=== PATIENT | male | born 1960 | race Caucasian/White ===

== ENCOUNTER 2018-04-29 23:53 | Emergency (ER) | payer MEDICARE ==
--- NOTE | 2018-04-30 00:19 | ED Physician Chart ---
ED Chief Complaint/HPI - Patient Information Date Seen:: 04/30/18 Time Seen:: 00:18 Chief Complaint:: Blurry vision, cannot focus History of Present Illness:: 57 yo male with history of stroke 2 years ago with slurred speech and residual right sided weakness, developed intermittent blurry vision with difficulty to focus the vision last night. In addition, patient noticed worsening right sided weakness. Patient stated that the blurry vision became constant today. The weakness of right arm and right leg became worse today. Patient also reported worsening headache. Patient vomited once last night. Allergies:: Allergies Allergy/AdvReac Type Severity Reaction Status Date / Time No Known Allergies Allergy Verified 04/30/18 00:05 Vitals:: Vital Signs - 8 hr 04/29/18 23:55 Temp 97.3 F HR 93 RR 18 BP 135/99 O2 Sat % 96 ED Review of Systems - Review of Systems General/Constitutional: No fever, Weakness Skin: No rash Head: Headache Eyes: Other (blurry vision) ENT: No nasal drainage Neck: No neck pain Cardio Vascular: No chest pain Pulmonary: No SOB GI: No nausea, No vomiting Musculoskeletal: Bone or joint pain, Other (unsteady gait) Neurological: Weakness ED Past Medical History - Past Medical History Past Medical History: HTN, DM, CVA/TIA (with right hemiparesis), Other ( diabetic neuropathy) Social History: Smoker, No Alcohol, No Drug Use Surgical History: None Psychiatricy History: Depression, Schizophrenia, Bipolar, Dementia Family Medical History - Family Member Mother History Unknown: Yes ED Physical Exam - Physical Examination General/Constitutional: Awake Head: Atraumatic Eyes: PERRL Skin: No ecchymosis ENMT: Nasal exam nl Neck: No nuchal rigidity Respiratory: No Wheeze/Rhonchi/Rales Cardio Vascular: RRR, No murmur, gallop, rubs, NL S1 S2 GI: No tenderness/rebounding/guarding Other Extremities comments:: Patient was able to ambulate with unsteady gait Other Neuro/Psych comments:: LUE 5/5, RUE 4/5, LLE 5/5, RLE 4/5, patellar reflex 1+, Babinski sign negative. Decreased sensation on the right side ED Labs/Radiology/EKG Results - Lab Results Results: Laboratory Last Values WBC 12.2 Th/cmm (4.8-10.8) H 04/30/18 00:50 RBC 4.91 Mil/cmm (4.30-5.70) 04/30/18 00:50 Hgb 15.1 gm/dL (12-16) 04/30/18 00:50 Hct 45.4 % (41.0-60) 04/30/18 00:50 MCV 92.5 fl (80-99) 04/30/18 00:50 MCH 30.8 pg (26.0-30.0) H 04/30/18 00:50 MCHC Differential 33.2 pg (28.0-36.0) 04/30/18 00:50 RDW 12.0 % (11.5-20.0) 04/30/18 00:50 Plt Count 528 Th/cmm (150-400) H 04/30/18 00:50 MPV 6.5 fl 04/30/18 00:50 Neutrophils % 74.3 % (40.0-80.0) 04/30/18 00:50 Lymphocytes % 20.3 % (20.0-50.0) 04/30/18 00:50 Monocytes % 4.3 % (2.0-10.0) 04/30/18 00:50 Eosinophils % 0.9 % (0.0-5.0) 04/30/18 00:50 Basophils % 0.2 % (0.0-2.0) 04/30/18 00:50 PT 10.2 SECONDS (9.5-11.5) 04/30/18 00:50 INR 0.98 (0.5-1.4) 04/30/18 00:50 PTT (Actin FS) 28.8 SECONDS (26.0-38.0) 04/30/18 00:50 Sodium 132 mEq/L (136-145) L 04/30/18 00:50 Potassium 4.3 mEq/L (3.5-5.1) 04/30/18 00:50 Chloride 96 mEq/L (98-107) L 04/30/18 00:50 Carbon Dioxide 25.7 mEq/L (21.0-31.0) 04/30/18 00:50 Anion Gap 14.6 (7.0-16.0) 04/30/18 00:50 BUN 39 mg/dL (7-25) H 04/30/18 00:50 Creatinine 1.5 mg/dL (0.7-1.3) H 04/30/18 00:50 Est GFR ( Amer) > 60.0 ml/min (>90) 04/30/18 00:50 Est GFR (Non-Af Amer) 51.5 ml/min 04/30/18 00:50 BUN/Creatinine Ratio 26.0 04/30/18 00:50 Glucose 278 mg/dL (70-105) H 04/30/18 00:50 Calcium 9.7 mg/dL (8.6-10.3) 04/30/18 00:50 Total Bilirubin 0.4 mg/dL (0.3-1.0) 04/30/18 00:50 AST 12 U/L (13-39) L 04/30/18 00:50 ALT 14 U/L (7-52) 04/30/18 00:50 Alkaline Phosphatase 77 U/L (34-104) 04/30/18 00:50 Troponin I < 0.01 ng/mL (0.01-0.05) L 04/30/18 00:50 B-Natriuretic Peptide 7.9 pg/mL (5.0-100.0) 04/30/18 00:50 Total Protein 7.4 gm/dL (6.0-8.3) 04/30/18 00:50 Albumin 4.3 gm/dL (4.2-5.5) 04/30/18 00:50 Globulin 3.1 gm/dL 04/30/18 00:50 Albumin/Globulin Ratio 1.4 (1.0-1.8) 04/30/18 00:50 Triglycerides 401 mg/dL (<150) H 04/30/18 00:50 Cholesterol 200 mg/dL (<200) 04/30/18 00:50 LDL Cholesterol Direct 86 mg/dL (75-193) 04/30/18 00:50 HDL Cholesterol 48 mg/dL (23-92) 04/30/18 00:50 Urine Source RANDOM 04/30/18 02:23 Urine Color YELLOW 04/30/18 02:23 Urine Clarity HAZY (CLEAR) 04/30/18 02:23 Urine pH 6.0 (4.6 - 8.0) 04/30/18 02:23 Ur Specific [place] >= 1.030 (1.005-1.030) 04/30/18 02:23 Urine Protein >=300 mg/dL (NEGATIVE) 04/30/18 02:23 Urine Glucose (UA) >=1000 mg/dL (NEGATIVE) H 04/30/18 02:23 Urine Ketones NEGATIVE mg/dL (NEGATIVE) 04/30/18 02:23 Urine Blood TRACE (NEGATIVE) 04/30/18 02:23 Urine Nitrate NEGATIVE (NEGATIVE) 04/30/18 02:23 Urine Bilirubin NEGATIVE (NEGATIVE) 04/30/18 02:23 Urine Urobilinogen 0.2 E.U./dL (0.2 - 1.0) 04/30/18 02:23 Ur Leukocyte Esterase NEGATIVE (NEGATIVE) 04/30/18 02:23 Urine RBC 0-2 /hpf (0-5) H 04/30/18 02:23 Urine WBC 0-2 /hpf (0-5) 04/30/18 02:23 Ur Epithelial Cells NONE SEEN /lpf (FEW) 04/30/18 02:23 Urine Bacteria FEW /hpf (NONE SEEN) 04/30/18 02:23 - Radiology Results Results: CXR: no focal consolidation CT head without contrast: no acute intracranial hemorrhage, midline shift or mass effect ED Assessment - Assessment General Assessment: DM II, uncontrolled Diabetic neuropathy Diabetic complication affecting vision Hyponatremia Leukocytosis Hypertriglyceridemia Hypertension History of stroke with right hemiparesis Assessment/Comments:: CBC, CMP, lipid panel, Trop, BNP, UA CXR, CT head without contrast NS 1L IV bolus Aspirin 81mg Ciprofloxacin 500mg D/c home F/u PCP for diabetes. If vision change and weakness become worse ED Septic Shock - . Is Septic Shock (SBP<90, OR Lactate>4 mmol\L) present?: No - <6hrs of presentation: Vital Signs: Vital Signs - 8 hr 04/29/18 23:55 Temp 97.3 F HR 93 RR 18 BP 135/99 O2 Sat % 96 ED Reassessment (Disposition) - Reassessment Reassessment Condition:: Improved - Patient Disposition Discharge/Transfer:: Home
[2018-04-30 01:00] LABS: % BASOPHILS 0.2 % (0.0-2.0); % EOSINOPHILS 0.9 % (0.0-5.0); % LYMPHOCYTES 20.3 % (20.0-50.0); % MONOCYTES 4.3 % (2.0-10.0); % NEUTROPHILS 74.3 % (40.0-80.0); EOSINOPHILE ABSOLUTE 0.1 Th/cmm (0.1-0.4); HEMATOCRIT 45.4 % (41.0-60); HEMOGLOBIN 15.1 gm/dL (12-16); LYMPHOCYTE ABSOLUTE 2.5 Th/cmm (1.5-3.0); MEAN CELL VOLUME 92.5 fl (80-99); MEAN CORPUSCULAR HEMOGLOBIN 30.8 pg (26.0-30.0); MEAN CORPUSCULAR HGB CONC 33.2 pg (28.0-36.0); MEAN PLATELET VOLUME 6.5 fl; MONOCYTE ABSOLUTE 0.5 Th/cmm (0.3-1.0); NEUTROPHILE ABSOLUTE 9.1 Th/cmm (1.8-8.0); PLATELET COUNT 528 Th/cmm (150-400); RED BLOOD COUNT 4.91 Mil/cmm (4.30-5.70); WHITE BLOOD COUNT 12.2 Th/cmm (4.8-10.8)
[2018-04-30 01:17] LABS: INR 0.98 (0.5-1.4); PROTHROMBIN TIME (TEST) 10.2 SECONDS (9.5-11.5)
[2018-04-30 01:20] LABS: ALB/GLOB RATIO 1.4 (1.0-1.8); ALBUMIN 4.3 gm/dL (4.2-5.5); ALKALINE PHOSPHATASE 77 U/L (34-104); ANION GAP 14.6 (7.0-16.0); BILIRUBIN,TOTAL 0.4 mg/dL (0.3-1.0); BUN - UREA NITROGEN 39 mg/dL (7-25); CALCIUM SERUM 9.7 mg/dL (8.6-10.3); CARBON DIOXIDE 25.7 mEq/L (21.0-31.0); CHLORIDE 96 mEq/L (98-107); CHOLESTEROL 200 mg/dL (<200); CREATININE - SERUM 1.5 mg/dL (0.7-1.3); GFR AFRICAN-AMERICAN > 60.0 ml/min (>90); GFR NON AFRICAN-AMERICAN 51.5 ml/min; GLUCOSE 278 mg/dL (70-105); HDL -HIGH DENSITY LIPOPROTEIN 48 mg/dL (23-92); POTASSIUM SERUM 4.3 mEq/L (3.5-5.1); SGOT 12 U/L (13-39); SGPT/ALT 14 U/L (7-52); SODIUM SERUM 132 mEq/L (136-145); TOTAL PROTEIN,SERUM 7.4 gm/dL (6.0-8.3); TRIGLYCERIDES 401 mg/dL (<150)
[2018-04-30] MEDS ORDERED: Sodium Chloride 0.9% 1,000 ML IV ONE (01:38)
[2018-04-30 04:16] LABS: URINE BILIRUBIN NEGATIVE (NEGATIVE); URINE BLOOD TRACE (NEGATIVE); URINE GLUCOSE (UA) >=1000 mg/dL (NEGATIVE); URINE KETONE NEGATIVE (NEGATIVE); URINE LEUKOCYTE ESTERASE NEGATIVE (NEGATIVE); URINE MICROSCOPIC INDICATED? YES; URINE NITRATE NEGATIVE (NEGATIVE); URINE PROTEIN >=300 mg/dL (NEGATIVE); URINE SOURCE RANDOM; URINE UROBILINOGEN 0.2 E.U./dL (0.2 - 1.0)
[2018-04-30 04:20] LABS: URINE CLARITY HAZY (CLEAR); URINE COLOR YELLOW
[2018-04-30 04:21] LABS: URINE BACTERIA FEW /hpf (NONE SEEN); URINE EPITHELIAL CELLS NONE SEEN /lpf (FEW); URINE RBC 0-2 /hpf (0-5); URINE WBC 0-2 /hpf (0-5)
[2018-04-30] MEDS ORDERED: Aspirin 81mg Chewable Tab PO STA (04:27)
[2018-04-30] MEDS ORDERED: Aspirin 81mg Chewable Tab ONE (04:30)
--- NOTE | 2018-04-30 08:00 | Diagnostic Imaging Report ---
CHEST X-RAY: AP view INDICATION: Shortness of breath COMPARISON: None FINDINGS: Mild decreased lung volumes are seen with mild chronic changes. There is no focal consolidation or pleural effusions The heart is normal in size. The osseous structures demonstrate no acute abnormalities. IMPRESSION: Mild decreased lung volumes and mild chronic changes. No focal consolidation identified.
--- NOTE | 2018-04-30 08:02 | Diagnostic Imaging Report ---
Head CT without intravenous contrast Indication: Double vision Comparison: None Technique: Axial images were obtained from the vertex to the skull base without IV contrast. Coronal reconstructions were made. Total DLP: 669, [id number] FINDINGS: Images of the brain obtained without contrast demonstrate no acute hemorrhage. No mass lesions identified. The ventricles and basal cisterns are patent. Small chronic appearing bilateral basal ganglia infarcts are noted.. There is no mass effect or midline shift. Atherosclerosis is noted. No skull fractures identified. No soft tissue swelling. The paranasal sinuses are clear. IMPRESSION: No evidence of an acute intracranial hemorrhage. Small bilateral chronic appearing basal ganglia infarcts. Atherosclerotic vascular disease. Given clinical history, if indicated MRI follow-up may be obtained for further assessment.
== END 2018-04-30 04:50 | disposition home or self-care (01) ==
LOC: ER 23:53
DX: E11.40 Type 2 diabetes mellitus with diabetic neuropathy, unspecified (principal); I10 Essential (primary) hypertension; E78.1 Pure hyperglyceridemia; E87.1 Hypo-osmolality and hyponatremia; D72.829 Elevated white blood cell count, unspecified; F17.200 Nicotine dependence, unspecified, uncomplicated; F32.9 Major depressive disorder, single episode, unspecified; Z86.73 Personal history of transient ischemic attack (TIA), and cerebral infarction without residual deficits
CPT/HCPCS: 36415-UA; 70450-TC; 71045-TC; 80053-TC; 80061-TC; 81001-TC; 83036-90; 83880-TC; 84484-TC; 85025-TC; 85610-TC; 93005; J7030; Z7610

== ENCOUNTER 2018-08-10 12:43 | Inpatient (IN) | payer MEDICARE, MEDICAID ==
[2018-08-10] MEDS ORDERED: Haloperidol Lactate 5 mg/mL 1mL Vial ONE (13:25)
[2018-08-10] MEDS ORDERED: Haloperidol Lactate 5 mg/mL 1mL Vial IM STA (13:28)
--- NOTE | 2018-08-10 13:57 | ED Physician Chart ---
ED Chief Complaint/HPI - Patient Information Date Seen:: 08/10/18 Time Seen:: 13:35 Chief Complaint:: Agitation History of Present Illness:: onset x one day of agitation and aggressive behavior; pt denies trauma, LOC, ALOC, AMS, H/As, S/T, neck pain, cough, C/P, SOB, Abd. Pain, A/N/V/D/C, fever, chills, SIs, or urinary s/s Allergies:: Allergies Allergy/AdvReac Type Severity Reaction Status Date / Time No Known Allergies Allergy Verified 04/30/18 00:05 Vitals:: Vital Signs - 8 hr 08/10/18 13:34 Temp 98.5 F HR 83 RR 16 BP 121/76 O2 Sat % 98 Historian:: Patient Review:: Nurse's Note Reviewed, Old Chart Reviewed ED Review of Systems - Review of Systems General/Constitutional: No fever, No chills, No weight loss, No weakness, No diaphoresis, No edema, No loss of appetite Skin: No skin lesions, No rash, No bruising Head: No headache, No light-headedness Eyes: No loss of vision, No pain, No diplopia ENT: No earache, No nasal drainage, No sore throat, No tinnitus Neck: No neck pain, No swelling, No thyromegaly, No stiffness, No mass noted Cardio Vascular: No chest pain, No palpitations, No PND, No orthopnea, No edema Pulmonary: No SOB, No cough, No sputum, No wheezing GI: No nausea, No vomiting, No diarrhea, No pain, No melena, No hematochezia, No constipation, No hematemesis G/U: No dysuria, No frequency, No hematuria, No nacturia Musculoskeletal: No bone or joint pain, No back pain, No muscle pain Endocrine: No polyuria, No polydipsia Psychiatric: Prior psych history, Depression, Anxiety, No suicidal ideation, No homicidal ideation, No auditory hallucination, No visual hallucination Hematopoietic: No bruising, No lymphadenopathy Allergic/Immuno: No urticaria, No angioedema Neurological: No syncope, No focal symptoms, No weakness, No paresthesia, No headache, No seizure, No dizziness, No confusion, No vertigo ED Past Medical History - Past Medical History Obtainable: Yes Past Medical History: HTN, DM, Dyslipidemia, Thyroid disorder Family History: Diabetes Melitus, HTN Social History: Smoker, Alcohol, No Drug Use, Single Surgical History: None Psychiatricy History: Depression, Bipolar Medication: Reviewed Family Medical History - Family Member Mother History Unknown: Yes ED Physical Exam - Physical Examination General/Constitutional: Awake, Well-developed, well-nourished, Alert, No distress, GCS 15, Non-toxic appearing, Ambulatory Head: Atraumatic Eyes: Lids, conjuctiva normal, PERRL, EOMI Skin: Nl inspection, No rash, No skin lesions, No ecchymosis, Well hydrated, No lymphadenopathy ENMT: External ears, nose nl, TM canals nl, Nasal exam nl, Lips, teeth, gums nl , Oropharynx nl, Tonsils nl Neck: Nontender, Full ROM w/o pain, No JVD, No nuchal rigidity, No bruit, No mass, No stridor Respiratory: Nl effort/Exclusion, Clear to Auscultation, No Wheeze/Rhonchi/Rales Cardio Vascular: RRR, No murmur, gallop, rubs, NL S1 S2, Carotid/Femoral/Distal pulses equal bilaterally GI: No tenderness/rebounding/guarding, No organomegaly, No hernia, Normal BS's, Nondistended, No mass/bruits, No McBurney tenderness Other GI comments:: no pulsatile masses : No CVA tenderness Extremities: No tenderness or effusion, Full ROM, normal strength in all extremities, No edema, Normal digits & nails Neuro/Psych: Alert/oriented, DTR's symmetric, Normal sensory exam, Normal motor strength, Judgement/insight normal, Mood normal, Normal gait, No focal deficits Other Neuro/Psych comments:: + Psychomotor Agitation; no SIs; Mood/Affect: Labile Misc: Normal back, No paraspinal tenderness ED Labs/Radiology/EKG Results - Lab Results Comments:: Reviewed - EKG Interpretations EKG Time:: 13:37 Rate & Rhythm: 86; NSR Comments:: old ASMI; non-specific st-t changes ED Septic Shock - . Is Septic Shock (SBP<90, OR Lactate>4 mmol\L) present?: No - <6hrs of presentation: Vital Signs: Vital Signs - 8 hr 08/10/18 13:34 Temp 98.5 F HR 83 RR 16 BP 121/76 O2 Sat % 98 ED Reassessment (Disposition) - Reassessment Reassessment Condition:: Improved - Diagnosis Diagnosis:: Agitation; Psychosis; Medical Clearance; Bipolar Disorder; Depression; Hyponatremia; Hypothyroidism; Hyperglycemia; Uncontrolled Diabetes Mellitus; Leukocytosis; Anemia - Aftercare/Follow up Instructions Aftercare/Follow-Up Instructions:: Counseled pt regarding lab results/diagnosis & need follow up, Counseled pt & family regarding lab results/diagnosis & need follow up - Patient Disposition Discharge/Transfer:: Acute Care w/in this hosp Accepting Physician:: Dr. Zambrano Time Called:: 1530 Time Responded:: 15:30 Admitted to:: Telemetry Spoke to:: Dr. Zambrano Admitting Medical Physician:: Dr. Zambrano Condition at Disposition:: Stable, Improved
[2018-08-10 14:24] LABS: % BASOPHILS 1.1 % (0.0-2.0); % EOSINOPHILS 1.1 % (0.0-5.0); % LYMPHOCYTES 20.3 % (20.0-50.0); % MONOCYTES 7.7 % (2.0-10.0); % NEUTROPHILS 69.8 % (40.0-80.0); BASOPHILE ABSOLUTE 0.1 Th/cumm (0-0.2); EOSINOPHILE ABSOLUTE 0.1 Th/cmm (0.1-0.4); HEMATOCRIT 38.3 % (41.0-60); HEMOGLOBIN 12.5 gm/dL (12-16); LYMPHOCYTE ABSOLUTE 2.2 Th/cmm (1.5-3.0); MEAN CORPUSCULAR HEMOGLOBIN 30.6 pg (26.0-30.0); MEAN CORPUSCULAR HGB CONC 32.6 pg (28.0-36.0); MEAN PLATELET VOLUME 7.1 fl; MONOCYTE ABSOLUTE 0.8 Th/cmm (0.3-1.0); NEUTROPHILE ABSOLUTE 7.8 Th/cmm (1.8-8.0); PLATELET COUNT 489 Th/cmm (150-400); RED BLOOD COUNT 4.08 Mil/cmm (4.30-5.70); RED CELL DISTRIBUTION WIDTH 12.6 % (11.5-20.0)
[2018-08-10 14:41] LABS: ACETAMINOPHEN < 10.0 ug/mL (10.0-30.0); ALB/GLOB RATIO 1.1 (1.0-1.8); ALBUMIN 3.2 gm/dL (4.2-5.5); ALKALINE PHOSPHATASE 83 U/L (34-104); BILIRUBIN,TOTAL 0.2 mg/dL (0.3-1.0); BUN - UREA NITROGEN 42 mg/dL (7-25); CARBON DIOXIDE 24.8 mEq/L (21.0-31.0); CHLORIDE 96 mEq/L (98-107); CHOLESTEROL 134 mg/dL (<200); CREATININE - SERUM 1.4 mg/dL (0.7-1.3); GFR AFRICAN-AMERICAN > 60.0 ml/min (>90); GFR NON AFRICAN-AMERICAN 55.7 ml/min; HDL -HIGH DENSITY LIPOPROTEIN 38 mg/dL (23-92); POTASSIUM SERUM 3.8 mEq/L (3.5-5.1); SGOT 7 U/L (13-39); SGPT/ALT 8 U/L (7-52); SODIUM SERUM 128 mEq/L (136-145); TOTAL PROTEIN,SERUM 6.1 gm/dL (6.0-8.3); TRIGLYCERIDES 322 mg/dL (<150)
[2018-08-10 14:43] LABS: GLUCOSE 494 mg/dL (70-105); SALICYLATES (ASPIRIN) < 25.0 mg/L (30.0-100.0)
[2018-08-10] MEDS ORDERED: INSULIN ASPART SLIDING SCALE 100 UNITS/ML UNIT SUBQ ONE (14:50)
[2018-08-10] MEDS ORDERED: INSULIN ASPART, RECOMBINANT 100 UNITS/ML SUBQ ONE (14:54)
[2018-08-10] MEDS ORDERED: Sodium Chloride 0.9% 1,000 ML IV ONE (15:58)
[2018-08-10] MEDS ORDERED: Sodium Chloride 0.9% 500 ML IV ONE (15:59)
[2018-08-10 16:26] LABS: AMYLASE SERUM 31 U/L (29-103); LIPASE 38 U/L (11-82)
[2018-08-10 17:39] VITALS: BP 109/63
[2018-08-10] MEDS ORDERED: Sodium Chloride 0.9% 1,000 ML IV SCH ×2 (17:50→18:00)
[2018-08-10] MEDS: Sodium Chloride 0.9% 1,000 ML IV SCH (18:15)
[2018-08-10] MEDS ORDERED: INSULIN ASPART SLIDING SCALE 100 UNITS/ML UNIT SUBQ SCH (21:00)
[2018-08-10] MEDS ORDERED: Piperacillin Sodium/Tazobact 3.375 gm Vial IV ONE (21:11)
[2018-08-10] MEDS: INSULIN ASPART SLIDING SCALE 100 UNITS/ML UNIT SUBQ SCH (22:03)
--- NOTE | 2018-08-10 23:05 | History & Physical ---
ADMIT DATE: 08/10/2018 HISTORY OF PRESENT ILLNESS: The patient was brought in because of agitation and aggressive behavior. He denied any trauma, loss of consciousness, shortness of breath, etc. On the laboratory data, the patient known to have severe hyperglycemia, very low sodium and the patient was admitted for uncontrolled hypertension, diabetes, and severe hyponatremia, altered level of consciousness. The patient has no fever, no chills, no rigors, no other problems. PAST MEDICAL HISTORY: Hypertension, diabetes, hyperlipidemia, thyroid disorder. FAMILY HISTORY: Diabetes. PHYSICAL EXAMINATION: GENERAL: Awake, alert, slightly confused. HEAD: Normal. ENT: Normal. NECK: Supple, nontender. LUNGS: Clear. CARDIOVASCULAR SYSTEM: S1, S2 heard. ABDOMEN: Soft. Bowel sounds present. LABORATORY DATA: EKG showed no acute changes. DIAGNOSES: Severe hyperglycemia, hyponatremia, hypothyroidism, uncontrolled diabetes, leukocytosis, anemia was made. The patient was given antibiotics and p.o. fluids. PLAN: The patient is being admitted and I will follow medically and psychiatrist has been called and I will also call Dr. Duran Jett and I will follow the patient. JOB# [id number]
[2018-08-11] MEDS: Sodium Chloride 0.9% 1,000 ML IV SCH ×2 (01:24→17:34)
[2018-08-11 01:39] LABS: URINE SOURCE CLEAN C
[2018-08-11 01:53] LABS: URINE BILIRUBIN NEGATIVE (NEGATIVE); URINE BLOOD NEGATIVE (NEGATIVE); URINE GLUCOSE (UA) >=1000 mg/dL (NEGATIVE); URINE KETONE NEGATIVE (NEGATIVE); URINE LEUKOCYTE ESTERASE NEGATIVE (NEGATIVE); URINE MICROSCOPIC INDICATED? YES; URINE NITRATE NEGATIVE (NEGATIVE); URINE PH 5.5 (4.6 - 8.0); URINE PROTEIN 100 mg/dL (NEGATIVE); URINE UROBILINOGEN 0.2 E.U./dL (0.2 - 1.0)
[2018-08-11 01:56] LABS: URINE CLARITY CLEAR (CLEAR); URINE COLOR YELLOW
[2018-08-11 02:18] LABS: URINE BACTERIA OCCASIONAL /hpf (NONE SEEN); URINE EPITHELIAL CELLS OCCASIONAL /lpf (FEW); URINE RBC NONE SEEN /hpf (0-5); URINE WBC 0-2 /hpf (0-5)
[2018-08-11 02:19] LABS: AMPHETAMINE URINE NEGATIVE (NEGATIVE); BARBITURATES URINE NEGATIVE (NEGATIVE); BENZODIAZEPINES QUAL URINE POSITIVE (NEGATIVE); CANNABINOID THC NEGATIVE (NEGATIVE); COCAINE METABOLITE QUAL URINE NEGATIVE (NEGATIVE); METHADONE URINE NEGATIVE (NEGATIVE); METHAMPHETAMINES QUAL URINE NEGATIVE (NEGATIVE); OPIATES (MORPHINE) QUAL. URINE POSITIVE (NEGATIVE); PHENCYCLIDINE (PCP) URINE NEGATIVE (NEGATIVE); TRICYCLICS (TCA) QUAL. URINE NEGATIVE (NEGATIVE)
[2018-08-11] MEDS ORDERED: Piperacillin Sodium/Tazobact 3.375 gm Vial IV ONE (04:16)
[2018-08-11 06:22] LABS: % BASOPHILS 0.9 % (0.0-2.0); % LYMPHOCYTES 19.2 % (20.0-50.0); % MONOCYTES 8.1 % (2.0-10.0); % NEUTROPHILS 69.8 % (40.0-80.0); BASOPHILE ABSOLUTE 0.1 Th/cumm (0-0.2); EOSINOPHILE ABSOLUTE 0.2 Th/cmm (0.1-0.4); HEMATOCRIT 37.4 % (41.0-60); HEMOGLOBIN 12.6 gm/dL (12-16); LYMPHOCYTE ABSOLUTE 2.2 Th/cmm (1.5-3.0); MEAN CELL VOLUME 91.2 fl (80-99); MEAN CORPUSCULAR HEMOGLOBIN 30.7 pg (26.0-30.0); MEAN CORPUSCULAR HGB CONC 33.6 pg (28.0-36.0); MEAN PLATELET VOLUME 7.2 fl; MONOCYTE ABSOLUTE 0.9 Th/cmm (0.3-1.0); PLATELET COUNT 485 Th/cmm (150-400); RED CELL DISTRIBUTION WIDTH 12.9 % (11.5-20.0); WHITE BLOOD COUNT 11.4 Th/cmm (4.8-10.8)
[2018-08-11 06:34] LABS: ANION GAP 10.6 (7.0-16.0); BUN - UREA NITROGEN 35 mg/dL (7-25); CALCIUM SERUM 8.5 mg/dL (8.6-10.3); CHLORIDE 105 mEq/L (98-107); CREATININE - SERUM 1.3 mg/dL (0.7-1.3); GFR AFRICAN-AMERICAN > 60.0 ml/min (>90); GFR NON AFRICAN-AMERICAN > 60.0 ml/min; POTASSIUM SERUM 3.6 mEq/L (3.5-5.1); SODIUM SERUM 134 mEq/L (136-145)
[2018-08-11 06:38] LABS: GLUCOSE 184 mg/dL (70-105)
[2018-08-11] MEDS: INSULIN ASPART SLIDING SCALE 100 UNITS/ML UNIT SUBQ SCH ×4 (07:01→21:14)
[2018-08-11] MEDS ORDERED: Levothyroxine 0.1 Mg Tab PO SCH ×2 (07:30→09:00)
[2018-08-11] MEDS ORDERED: LEVOTHYROXINE SODIUM 150 MCG PO SCH (07:30)
[2018-08-11 08:11] LABS: T3 FREE 1.1 pg/mL (2.0-4.4); T4 FREE 0.48 ng/dL (0.82-1.77)
--- NOTE | 2018-08-11 08:37 | Diagnostic Imaging Report ---
CHEST X-RAY: AP view INDICATION: Pneumonia COMPARISON: 04/30/2018 FINDINGS: Developing right lower lung zone interstitial infiltrates and probable faint left basal interstitial infiltrates are noted. There is elevation of the right hemidiaphragm. Heart size normal. No significant effusions. IMPRESSION: Developing right lower lung zone interstitial infiltrate and probable faint developing left basal interstitial infiltrate. Follow-up recommended.
[2018-08-11] MEDS ORDERED: Non-Formulary Item 1 EA (Lactulose [Lactulose] 30 ML) PO SCH (09:00)
[2018-08-11] MEDS: Hydrocodone/APAP 10 mg/325 mg Tab PO SCH ×5 (11:00→20:35)
[2018-08-11] MEDS: Lactulose 10 Gm/15 mL 30mL UDC PO SCH ×2 (11:01→17:35)
[2018-08-11] MEDS ORDERED: Hydrocodone/APAP 10 mg/325 mg Tab PO SCH (21:00)
--- NOTE | 2018-08-11 23:16 | Consultation ---
DATE OF CONSULTATION: 08/11/[address] Zambrano. HISTORY OF PRESENT ILLNESS: This 57-year-old male patient who was brought to the hospital due to aggressive behavior and agitation. In the Emergency Room, the patient has uncontrolled diabetes, following this patient is admitted. Cardiac consult is requested. PAST MEDICAL HISTORY: Diabetes mellitus type 2, uncontrolled; hyponatremia; hypothyroid; iron-deficiency anemia; hyperlipidemia; major depression; and bipolar. FAMILY HISTORY: Unremarkable. SOCIAL HISTORY: The patient has a history of smoking and alcohol use. No history of substance abuse. ALLERGIES: No known allergies. PHYSICAL EXAMINATION: VITAL SIGNS: Blood pressure 130/80, pulse 70, and respirations 20. HEAD: Normocephalic. No lumps or bumps. EYES: Pupils equal, reactive to light. Fundi show AV nicking, sclerae white, conjunctivae pink. NECK: Carotid 2+. Normal upstroke. JVD flat. Thyroid not palpable. Lymph nodes not palpable. CHEST: Shows increased AP diameter. No kyphosis, scoliosis. LUNGS: Bilateral bronchovesicular breath sounds. HEART: PMI fifth intercostal space with lateral to midclavicular line. S1, S2 normal. No S3 or S4. Soft systolic murmur. ABDOMEN: Soft. Liver, spleen not palpable. No organomegaly. Bowel sounds active. NEUROLOGIC: Unremarkable. EXTREMITIES: Peripheral pulses 2+. No pedal edema. CLINICAL IMPRESSION: 1. Diabetes mellitus type 2, uncontrolled. Blood sugar 458 on admission. 2. Hypothyroid, TSH level 198. 3. Iron deficiency anemia. 4. Hyperlipidemia. 5. Major depression. 6. Bipolar. PLAN: We will start the patient on levothyroxine, also get EKG, and monitor the patient. JOB# [id number]
--- NOTE | 2018-08-12 00:43 | Consultation ---
DATE OF CONSULTATION: 08/11/2018 IDENTIFYING INFORMATION: The patient is a 57-year-old male. REASON FOR CONSULTATION: I was asked to see this patient, who came to [facility] and said he was admitted to the telemetry. The patient was a poor historian. He was somewhat irritable. He was urgently admitted because of agitation and aggressive behavior. The patient was diagnosed with severe hyperglycemia, hyponatremia, hypothyroidism, uncontrolled diabetes, leukocytosis, and anemia, so we started on antibiotic and fluids. The patient was a poor historian. He reported, first he said he is depressed, but he said not really. He said he sleeps well. He eats well. He denies prior psychiatric treatment. Denies any current intent to harm himself or anybody. Denies auditory or visual hallucination; however, he was unable to tell me his age, he believes he was 54 years of age. Said he is not sure why I was talking to him, he was not aware of being referred because of agitation. PAST PSYCHIATRIC HISTORY: Denies prior psychiatric treatment; however, is not a great historian. The patient denies any prior attempt to harm himself. MEDICAL HISTORY: As mentioned before. ALLERGIES: He has no known drug allergies. MEDICATIONS: He is on Wellbutrin 150 mg daily, was given Haldol yesterday in the Emergency Room because of his agitation. He is on insulin because of his diabetes, uncontrollable, levothyroxine and antibiotic, vancomycin and piperacillin. FAMILY AND SOCIAL HISTORY: The patient was for 10 years now. He said he has been for 1 year. He has 2 children, ages 35 and 19, who were raised by their mother. He said he has college education, used to work as an industrial maintenance electrician. MENTAL STATUS EXAMINATION: The patient was feeding himself. He was alert, looks somewhat disheveled. He believes this is 08/14, first he said this is 1918, later he told me is 2018. He was irritable. He believes he is here because he cannot move his legs. He denies any intent to harm himself or anybody or any hallucination, but he was very easily agitated, unpredictable, and impulsive. His long-term memory is poor, cannot remember his age, he remembers President being Trump. He believes ____ was before and then later said it is Sonny. He was able to tell me why he is here. He said he was living nowhere, so he came from [facility] ____ remember that so short term memory is poor. His insight about his illness is poor, does not realize his problem. Judgment is poor with his behavior. IMPRESSION: Major depression, recurrent, with no psychosis; rule out bipolar disorder, also early dementia. PLAN: The patient to continue his medication. We can transfer the patient to [facility] when medically cleared. Thank you very much for allowing me to participate in the care of this most interesting gentleman. JOB# [id number]
--- NOTE | 2018-08-12 02:41 | Infectious Disease Prog Note ---
Infectious Disease Subjective - Review of Systems Service Date: 08/11/18 ([facility] asp pn) Events since last encounter: hpi- pt cx noted ros no efvr o/e vs chaet vesicular sis2 abd soft ext pulse Vital Signs - 24 hr 08/11/18 08/11/18 08/11/18 08:00 10:59 12:00 Temp 97.8 F HR 85 98 RR 18 16 BP 121/66 O2 Sat % 96 08/11/18 08/11/18 08/11/18 16:00 20:00 20:35 Temp 98 F HR 79 77 RR 18 18 BP 154/98 154/92 O2 Sat % 96 08/12/18 00:00 Temp HR RR 18 BP O2 Sat % Microbiology 08/10/18 18:55 Blood - Preliminary NO GROWTH AFTER 24 HOURS 08/10/18 18:40 Blood - Preliminary NO GROWTH AFTER 24 HOURS Diagnoses ANEMIA, UNSPECIFIED (08/10/18) ELEVATED WHITE BLOOD CELL COUNT, UNSPECIFIED (08/10/18) HYPOTHYROIDISM, UNSPECIFIED (08/10/18) TYPE 2 DIABETES MELLITUS WITH HYPERGLYCEMIA (08/10/18) HYPO-OSMOLALITY AND HYPONATREMIA (08/10/18) ESSENTIAL (PRIMARY) HYPERTENSION (08/10/18) WEAKNESS (08/10/18) Current Medications Acetaminophen (Tylenol 650mg Supp) 650 mg RC Q4HR PRN PRN Reason: Pain (Mild) 1-3 Stop: 10/09/18 22:35 Acetaminophen/Hydrocodone Bitart ([place] 10 Mg/325 Mg) 1 tab PO HS RAI Stop: 10/10/18 08:59 Last Admin: 08/11/18 20:35 Dose: 1 tab Atorvastatin Calcium (Lipitor) 40 mg PO DAILY [facility]; Protocol Stop: 10/10/18 08:59 Last Admin: 08/11/18 10:58 Dose: 40 mg Bisacodyl (Dulcolax 10 Mg Supp) 10 mg RC DAILY PRN PRN Reason: Constipation Stop: 10/09/18 22:35 Bupropion HCl (Wellbutrin Sr) 150 mg PO DAILY [facility]; Protocol Stop: 10/10/18 08:59 Last Admin: 08/11/18 10:59 Dose: 150 mg Carvedilol (Coreg) 3.125 mg PO Q12HR [facility]I Stop: 10/09/18 22:59 Last Admin: 08/11/18 20:35 Dose: 3.125 mg Clopidogrel Bisulfate (Plavix) 75 mg PO DAILY [facility] Stop: 10/10/18 08:59 Last Admin: 08/11/18 10:59 Dose: 75 mg Gemfibrozil (Lopid) 600 mg PO BID [facility] Stop: 10/10/18 08:59 Last Admin: 08/11/18 17:35 Dose: 600 mg Glipizide (Glucotrol) 5 mg PO DAILY [facility] Stop: 10/10/18 08:59 Last Admin: 08/11/18 11:00 Dose: 5 mg Piperacillin Sod/Tazobactam (Sod 3.375 gm/ Sodium Chloride) 50 mls @ 100 mls/ hr IV Q8HR [facility] Stop: 10/09/18 20:59 Last Admin: 08/11/18 20:56 Dose: 100 mls/hr Sodium Chloride (Nacl 0.9%) 1,000 mls @ 150 mls/hr IV .Q6H40M [facility] Stop: 10/10/18 14:59 Last Admin: 08/11/18 17:34 Dose: 150 mls/hr Insulin Aspart (Novolog Insulin Sliding Scale) 0 units SUBQ ACHS [facility]; Protocol Stop: 10/09/18 20:59 Last Admin: 08/11/18 21:14 Dose: 3 units Insulin Aspart (Novolog) units SUBQ TIDWM [facility]; Protocol Stop: 10/10/18 07:59 Insulin Detemir (Levemir Insulin) units SUBQ BID [facility]; Protocol Stop: 10/10/18 08:59 Lactulose (Cephulac) 20 gm PO BID [facility] Stop: 10/10/18 08:59 Last Admin: 08/11/18 17:35 Dose: 20 gm Levothyroxine Sodium (Synthroid) 0.075 mg IVP DAILY [facility] Stop: 10/10/18 14:59 Last Admin: 08/11/18 15:35 Dose: Not Given Infectious Disease Objective - Results Result Diagrams: 08/11/18 05:50 08/11/18 05:50 Recent Labs: Laboratory Last Values WBC 11.4 Th/cmm (4.8-10.8) H 08/11/18 05:50 RBC 4.10 Mil/cmm (4.30-5.70) L 08/11/18 05:50 Hgb 12.6 gm/dL (12-16) 08/11/18 05:50 Hct 37.4 % (41.0-60) L 08/11/18 05:50 MCV 91.2 fl (80-99) 08/11/18 05:50 MCH 30.7 pg (26.0-30.0) H 08/11/18 05:50 MCHC Differential 33.6 pg (28.0-36.0) 08/11/18 05:50 RDW 12.9 % (11.5-20.0) 08/11/18 05:50 Plt Count 485 Th/cmm (150-400) H 08/11/18 05:50 MPV 7.2 fl 08/11/18 05:50 Neutrophils % 69.8 % (40.0-80.0) 08/11/18 05:50 Lymphocytes % 19.2 % (20.0-50.0) L 08/11/18 05:50 Monocytes % 8.1 % (2.0-10.0) 08/11/18 05:50 Eosinophils % 2.0 % (0.0-5.0) 08/11/18 05:50 Basophils % 0.9 % (0.0-2.0) 08/11/18 05:50 Sodium 134 mEq/L (136-145) L 08/11/18 05:50 Potassium 3.6 mEq/L (3.5-5.1) 08/11/18 05:50 Chloride 105 mEq/L (98-107) 08/11/18 05:50 Carbon Dioxide 22.0 mEq/L (21.0-31.0) 08/11/18 05:50 Anion Gap 10.6 (7.0-16.0) 08/11/18 05:50 BUN 35 mg/dL (7-25) H 08/11/18 05:50 Creatinine 1.3 mg/dL (0.7-1.3) 08/11/18 05:50 Est GFR ( Amer) > 60.0 ml/min (>90) 08/11/18 05:50 Est GFR (Non-Af Amer) > 60.0 ml/min 08/11/18 05:50 BUN/Creatinine Ratio 26.9 08/11/18 05:50 Glucose 184 mg/dL (70-105) H D 08/11/18 05:50 POC Glucose 200 MG/DL (70 - 105) H 08/11/18 20:59 Calcium 8.5 mg/dL (8.6-10.3) L 08/11/18 05:50 Total Bilirubin 0.2 mg/dL (0.3-1.0) L 08/10/18 14:16 AST 7 U/L (13-39) L 08/10/18 14:16 ALT 8 U/L (7-52) 08/10/18 14:16 Alkaline Phosphatase 83 U/L (34-104) 08/10/18 14:16 Troponin I 0.01 ng/mL (0.01-0.05) 08/10/18 14:16 Total Protein 6.1 gm/dL (6.0-8.3) 08/10/18 14:16 Albumin 3.2 gm/dL (4.2-5.5) L 08/10/18 14:16 Globulin 2.9 gm/dL 08/10/18 14:16 Albumin/Globulin Ratio 1.1 (1.0-1.8) 08/10/18 14:16 Triglycerides 322 mg/dL (<150) H 08/10/18 14:16 Cholesterol 134 mg/dL (<200) 08/10/18 14:16 LDL Cholesterol Direct 52 mg/dL (75-193) L 08/10/18 14:16 HDL Cholesterol 38 mg/dL (23-92) 08/10/18 14:16 Amylase 31 U/L (29-103) 08/10/18 14:16 Lipase 38 U/L (11-82) 08/10/18 14:16 Free T4 0.48 ng/dL (0.82-1.77) L 08/10/18 14:16 Free T3 1.1 pg/mL (2.0-4.4) L 08/10/18 14:16 TSH 198.01 uIU/ml (0.34-5.60) H 08/11/18 05:50 Urine Source CLEAN C 08/11/18 01:20 Urine Color YELLOW 08/11/18 01:20 Urine Clarity CLEAR (CLEAR) 08/11/18 01:20 Urine pH 5.5 (4.6 - 8.0) 08/11/18 01:20 Ur Specific [place] 1.025 (1.005-1.030) 08/11/18 01:20 Urine Protein 100 mg/dL (NEGATIVE) H 08/11/18 01:20 Urine Glucose (UA) >=1000 mg/dL (NEGATIVE) H 08/11/18 01:20 Urine Ketones NEGATIVE mg/dL (NEGATIVE) 08/11/18 01:20 Urine Blood NEGATIVE (NEGATIVE) 08/11/18 01:20 Urine Nitrate NEGATIVE (NEGATIVE) 08/11/18 01:20 Urine Bilirubin NEGATIVE (NEGATIVE) 08/11/18 01:20 Urine Urobilinogen 0.2 E.U./dL (0.2 - 1.0) 08/11/18 01:20 Ur Leukocyte Esterase NEGATIVE (NEGATIVE) 08/11/18 01:20 Urine RBC NONE SEEN /hpf (0-5) 08/11/18 01:20 Urine WBC 0-2 /hpf (0-5) 08/11/18 01:20 Ur Epithelial Cells OCCASIONAL /lpf (FEW) 08/11/18 01:20 Urine Bacteria OCCASIONAL /hpf (NONE SEEN) 08/11/18 01:20 Salicylates < 25.0 mg/L (30.0-100.0) L 08/10/18 14:16 Urine Opiates Screen POSITIVE (NEGATIVE) H 08/11/18 01:20 Urine Methadone Screen NEGATIVE (NEGATIVE) 08/11/18 01:20 Acetaminophen < 10.0 ug/mL (10.0-30.0) L 08/10/18 14:16 Ur Barbiturates Screen NEGATIVE (NEGATIVE) 08/11/18 01:20 Ur Tricyclics Screen NEGATIVE (NEGATIVE) 08/11/18 01:20 Ur Phencyclidine Scrn NEGATIVE (NEGATIVE) 08/11/18 01:20 Amphetamines Screen NEGATIVE (NEGATIVE) 08/11/18 01:20 U Methamphetamines Scrn NEGATIVE (NEGATIVE) 08/11/18 01:20 U Benzodiazepines Scrn POSITIVE (NEGATIVE) H 08/11/18 01:20 U Cocaine Metab Screen NEGATIVE (NEGATIVE) 08/11/18 01:20 U Cannabinoids Screen NEGATIVE (NEGATIVE) 08/11/18 01:20 Ethyl Alcohol < 10 mg/dL (0-10) 08/10/18 14:16 Serum Ketones NEGATIVE (NEGATIVE) 08/10/18 14:16 - Physical Exam Vitals and I&O: Vital Signs Temp 98 F 08/11/18 16:00 Pulse 77 08/11/18 20:35 Resp 18 08/12/18 00:00 BP 154/92 08/11/18 20:35 Pulse Ox 96 08/11/18 16:00 Intake & Output 08/11/18 08/11/18 08/12/18 06:59 18:59 06:59 Intake Total 1100 50 Balance 1100 50 Intake: Intake, IV Amount 1100 50 Piperacillin Sodium/ 100 50 Tazobact 3.375 gm In Sodium Chloride 0.9% 50 ml @ 100 mls/hr IV Q8HR [facility] Rx#:[id number] Sodium Chloride 0.9% 1, 1000 000 ml @ 200 mls/hr IV . Q5H [facility] Rx#:[id number] Other: Stool Characteristics Soft Active Medications: Current Medications Acetaminophen (Tylenol 650mg Supp) 650 mg RC Q4HR PRN PRN Reason: Pain (Mild) 1-3 Stop: 10/09/18 22:35 Acetaminophen/Hydrocodone Bitart ([place] 10 Mg/325 Mg) 1 tab PO [facility] Stop: 10/10/18 08:59 Last Admin: 08/11/18 20:35 Dose: 1 tab Atorvastatin Calcium (Lipitor) 40 mg PO DAILY [facility]; Protocol Stop: 10/10/18 08:59 Last Admin: 08/11/18 10:58 Dose: 40 mg Bisacodyl (Dulcolax 10 Mg Supp) 10 mg RC DAILY PRN PRN Reason: Constipation Stop: 10/09/18 22:35 Bupropion HCl (Wellbutrin Sr) 150 mg PO DAILY [facility]; Protocol Stop: 10/10/18 08:59 Last Admin: 08/11/18 10:59 Dose: 150 mg Carvedilol (Coreg) 3.125 mg PO Q12HR [facility] Stop: 10/09/18 22:59 Last Admin: 08/11/18 20:35 Dose: 3.125 mg Clopidogrel Bisulfate (Plavix) 75 mg PO DAILY [facility] Stop: 10/10/18 08:59 Last Admin: 08/11/18 10:59 Dose: 75 mg Gemfibrozil (Lopid) 600 mg PO BID [facility] Stop: 10/10/18 08:59 Last Admin: 08/11/18 17:35 Dose: 600 mg Glipizide (Glucotrol) 5 mg PO DAILY [facility] Stop: 10/10/18 08:59 Last Admin: 08/11/18 11:00 Dose: 5 mg Piperacillin Sod/Tazobactam (Sod 3.375 gm/ Sodium Chloride) 50 mls @ 100 mls/ hr IV Q8HR [facility] Stop: 10/09/18 20:59 Last Admin: 08/11/18 20:56 Dose: 100 mls/hr Sodium Chloride (Nacl 0.9%) 1,000 mls @ 150 mls/hr IV .Q6H40M [facility] Stop: 10/10/18 14:59 Last Admin: 08/11/18 17:34 Dose: 150 mls/hr Insulin Aspart (Novolog Insulin Sliding Scale) 0 units SUBQ ACHS [facility]; Protocol Stop: 10/09/18 20:59 Last Admin: 08/11/18 21:14 Dose: 3 units Insulin Aspart (Novolog) units SUBQ TIDWM [facility]; Protocol Stop: 10/10/18 07:59 Insulin Detemir (Levemir Insulin) units SUBQ BID [facility]; Protocol Stop: 10/10/18 08:59 Lactulose (Cephulac) 20 gm PO BID [facility] Stop: 10/10/18 08:59 Last Admin: 08/11/18 17:35 Dose: 20 gm Levothyroxine Sodium (Synthroid) 0.075 mg IVP DAILY [facility] Stop: 10/10/18 14:59 Last Admin: 08/11/18 15:35 Dose: Not Given Nutritional Asmnt/Malnutr-PDOC - Dietary Evaluation Malnutrition Findings (Please click <Entered> for more info): Nutritional Asmnt/Malnutrition Start: 08/11/18 13: 15 Text: Status: Complete Freq: Protocol: Document 08/11/18 13:15 [email or web address] (Rec: 08/11/18 13:22 [email or web address]) Nutritional Asmnt/Malnutrition Patient General Information Nutritional Screening High Risk Diagnosis psychosis Pertinent Medical Hx/Surgical Hx HTN, DM, hyperlipidemia, thyroid disorder, depression, bipolar Subjective Information Pt was seen resting in bed at time of visit. Pt stated he was hungry. Pt ate double breakfast and is always hungry per RN. Glucose 494 at admission noted. Not able to provide diabetic education d/t pt mental status. Current Diet Order/ Nutrition Support CCHO 60gm, 2g NA Pertinent Medications lipitor, glucotrol, novolog, levemir, piperacillin, lactulose, synthroid, NaCl 0.9 % Pertinent Labs 08/11 Na 134, BUN 35, glucose 184, Ca 8.5, POC 186-492 08/10 glucose 494, POC 419-492 Nutritional Hx/Data Height 1.8 m Height (Calculated Centimeters) 180.3 Current Weight (lbs) 81.647 kg Weight (Calculated Kilograms) 81.6 Weight (Calculated Grams) 88659.6 [place] Body Weight 172 Body Mass Index (BMI) 25.1 Weight Status Overweight GI Symptoms GI Symptoms None Last BM not indicated Difficult in: None Food Allergies No Skin Integrity/Comment: skin tear to right upper arm and right knee, abrasion to right first toe asul 15 Current %PO Good (75-100%) Estimated Nutritional Goals BEE in Kcals: Using Current wt Calories/Kcals/Kg 23-27 Kcals Calculated 0728-3195 Protein: Using Current wt Protein g/k.8-1 Protein Calculated 65-81 Fluid: ml 5100-5508 (1ml/kcal) Nutritional Problem 1. Problem Problem altered nutrition related labs Etiology hyperglycemia, electrolyte/ fluid imbalance Signs/Symptoms: Na 134, BUN 35, glucose 184, Ca 8.5, POC 186-492 Malnutrition Alert Is there a minimum of two criteria No selected? Query Text:Check all the applicable criteria. A minimum of two criteria are recommended for diagnosis of either severe or non-severe malnutrition. Malnutrition Related to Morbid Obesity Malnutrition related to morbid obesity No Intervention/Recommendation Comments 1. [facility], 2g NA diet as ordered. MD to adjust insulin for optinal glycemic control. 2. MD to monitor glucose, fluid, and electrolytes 2. Monitor PO intake, wt, labs and skin integrity 3. F/U as moderate risk in 3-5 days Expected Outcomes/Goals Expected Outcomes/Goals Goal: PO intake to meet at least 75% of nutritional needs and improved labs. Reviewed by Vicky Trimble RD
--- NOTE | 2018-08-12 04:35 | Consultation ---
DATE OF CONSULTATION: 08/11/2018 REASON FOR CONSULTATION: Worsening kidney function, electrolyte imbalance, and fluid management. HISTORY OF PRESENT ILLNESS: This is a 57-year-old male with past medical history of bipolar disorder, who was brought in because of agitation and aggressive behavior to resident staff. A few hours prior to admission, the patient became agitated and aggressive to staff at the [facility]. He was brought in to the ER due to a 5150 by the police. His labs revealed sodium of 128 with a BUN/creatinine of 42/1.4. His blood sugar was 494. He was started on IV fluids, which consisted of normal saline. His sodium improved to 134 and BUN/creatinine to 35/1.3. He had no history of nausea, vomiting, nor diarrhea. PAST MEDICAL HISTORY: 1. Essential hypertension. 2. Type 2 diabetes mellitus. 3. Dyslipidemia. 4. Hypothyroidism. 5. Depression. 6. Bipolar disorder. CURRENT MEDICATIONS: He is currently on acetaminophen, atorvastatin, bisacodyl, bupropion, carvedilol, clopidogrel, Lopid, Glucotrol, hydrocodone/APAP, aspart, detemir, lactulose, levothyroxine, Tradjenta, vancomycin, and Zosyn. ALLERGIES: No known drug allergies. SOCIAL AND FAMILY HISTORY: I was not able to obtain directly from the patient because he remains agitated and confused. REVIEW OF SYSTEMS: Again, I was not able to decipher from the patient because of the same reason. PHYSICAL EXAMINATION: GENERAL: The patient is awake, verbal; however, he is confused and could not concentrate on one topic. VITAL SIGNS: His blood pressure is 109/63, pulse 77, and temperature 97.4 degrees. SKIN: Poor turgor, warm. No rash, no jaundice appreciated. HEENT: Head normocephalic, atraumatic. Eyes: Extraocular muscles intact. Pupils equal, round, reactive to light and accommodates. Anicteric sclerae. Pale conjunctivae. Nose, midline nasal septum. Mouth: Dry oral mucosa with poor dentition. NECK: Supple, no adenopathy, no thyromegaly, no bruits. Trachea palpated in the midline. CHEST AND CARDIOVASCULAR: S1, S2. No rub, murmur, nor gallop appreciated. Point of maximal impulse fifth intercostal space, left midclavicular line. No abdominal or femoral bruits appreciated. LUNGS: Equal expansion. No use of accessory muscles. No supraclavicular retractions. Decreased breath sounds, but clear to auscultation without any wheeze. ABDOMEN: Mildly globular, soft. Positive for bowel sounds. No bruits either diastolic or systolic. RECTAL: Lax sphincter tone. GENITOURINARY: Normal appearing male genitalia. MUSCULOSKELETAL: No effusions present in his joints, but unable to assess his range of motion. EXTREMITIES: No evidence of any edema, cyanosis, or clubbing with palpable femoral, but unable to fully appreciate popliteal and dorsalis pedis pulses. He has a dried right toe ulcer. NEUROLOGIC: The patient is awake, but somewhat agitated, does not want to follow neuro commands. LABORATORY DATA AND STUDIES: Reveal white count 11.4, hemoglobin 12.6, hematocrit 37.4, and platelets 485. Sodium is 134, potassium 3.6, chloride 105, carbon dioxide 22, BUN 35, creatinine 1.3, glucose is 361, and calcium 8.5. TSH is 198. Albumin is 3.2. IMPRESSION: 1. Acute kidney injury, MDRD GFR is greater than 60 mL per minute. The patient initially had prerenal azotemia. Physical exam did reveal poor skin turgor with dry oral mucosa. His urine is very concentrated. However, his oral intake had also been poor along with polyuria secondary to uncontrolled diabetes. Thus, these factors are consistent with the development of dehydration. Thus, his prerenal azotemia may have progressed to acute tubular injury. 2. Hyponatremia. This is possibly secondary to increased sodium loss as compared to free water loss due to his polyuria. His sodium concentration had improved once he received IV fluids consisting of normal saline. 3. Agitation/aggressive behavior secondary to decompensation of psychosis. 4. Essential hypertension with chronic kidney disease. 5. Type 2 diabetes mellitus, out of control with chronic kidney disease. 6. Dyslipidemia. 7. Hypothyroidism. 8. Depression. 9. Bipolar disorder. PLAN: 1. Continue on with IV fluids. 2. Urine sodium, eosinophils, and creatinine. 3. Replace levothyroxine in IV form due to significant hypothyroidism. 4. Follow up electrolytes and CBC. JOB# [id number]
--- NOTE | 2018-08-12 07:11 | Consultation ---
DATE OF CONSULTATION: 08/10/2018 PRIMARY PHYSICIAN: Dr. Zambrano. HISTORY OF PRESENT ILLNESS: This is a 57-year-old male who was brought by [employer] because of agitation and aggressive behavior. HISTORY OF PRESENT ILLNESS: The patient was in [facility] and did not check out. [employer] was called. The patient was brought to the Emergency with agitation. The patient given Haldol, admitted to the hospital. Infectious consultation was called. The patient was seen right away. The patient is sedated, unable to provide meaningful history. PAST MEDICAL HISTORY: Old chart reviewed, pertinent information obtained. Past history of alcohol use, essential hypertension, hyperlipidemia, hypothyroidism, type 2 diabetes. SOCIAL HISTORY: Nonsmoker. FAMILY HISTORY: Diabetes present. REVIEW OF SYSTEMS: A 14-point review of system negative except above. PHYSICAL EXAMINATION: GENERAL: The patient is sedated with the following vital signs. VITAL SIGNS: Temperature 98.5, pulse 83, respirations 16, blood pressure 120/76. HEENT: Mild pallor, no icterus or plaque. NECK: Supple, nontender. LUNGS: Breath sounds bilateral. CARDIOVASCULAR: S1. ABDOMEN: Soft, bowel sounds present. NODES: No cervical lymph nodes. LABORATORY DATA: Chest x-ray requested. Urine shows protein of 100, glucose more than 1000. White count 11,000, hemoglobin is 12 grams, platelets 485. Chemistry shows blood sugar 458. TSH is 198. Creatinine 1.3. DIAGNOSIS: Probably aspiration pneumonia. The patient was started on Zosyn. We will discontinue vancomycin. Supportive care. Repeat labs tomorrow. Blood sugar control. Rest of the care as ordered in CPOE and discussed with the staff. Thank you, Dr. Zambrano, for this consultation. JOB# [id number]
[2018-08-12] MEDS: INSULIN ASPART SLIDING SCALE 100 UNITS/ML UNIT SUBQ SCH ×4 (07:22→21:08)
[2018-08-12 08:48] LABS: % BASOPHILS 0.7 % (0.0-2.0); % EOSINOPHILS 1.6 % (0.0-5.0); % LYMPHOCYTES 15.4 % (20.0-50.0); % MONOCYTES 6.3 % (2.0-10.0); BASOPHILE ABSOLUTE 0.1 Th/cumm (0-0.2); EOSINOPHILE ABSOLUTE 0.2 Th/cmm (0.1-0.4); HEMATOCRIT 37.5 % (41.0-60); HEMOGLOBIN 12.3 gm/dL (12-16); LYMPHOCYTE ABSOLUTE 1.7 Th/cmm (1.5-3.0); MEAN CELL VOLUME 91.5 fl (80-99); MEAN CORPUSCULAR HGB CONC 32.8 pg (28.0-36.0); MONOCYTE ABSOLUTE 0.7 Th/cmm (0.3-1.0); NEUTROPHILE ABSOLUTE 8.5 Th/cmm (1.8-8.0); PLATELET COUNT 505 Th/cmm (150-400); RED BLOOD COUNT 4.09 Mil/cmm (4.30-5.70); RED CELL DISTRIBUTION WIDTH 12.7 % (11.5-20.0); WHITE BLOOD COUNT 11.2 Th/cmm (4.8-10.8)
[2018-08-12] MEDS ORDERED: Influenza Vaccine (5 yr & older) 0.5 ml Syr IM ONE (09:00)
[2018-08-12 09:09] LABS: ANION GAP 9.9 (7.0-16.0); BUN - UREA NITROGEN 22 mg/dL (7-25); CALCIUM SERUM 8.5 mg/dL (8.6-10.3); CARBON DIOXIDE 22.8 mEq/L (21.0-31.0); CHLORIDE 104 mEq/L (98-107); CREATININE - SERUM 1.2 mg/dL (0.7-1.3); GFR AFRICAN-AMERICAN > 60.0 ml/min (>90); GFR NON AFRICAN-AMERICAN > 60.0 ml/min; GLUCOSE 202 mg/dL (70-105); MAGNESIUM 1.6 mg/dL (1.9-2.7); PHOSPHOROUS 2.5 mg/dL (2.5-5.0); POTASSIUM SERUM 3.7 mEq/L (3.5-5.1); SODIUM SERUM 133 mEq/L (136-145); URIC ACID 2.9 mg/dL (4.4-7.6)
[2018-08-12] MEDS: Hydrocodone/APAP 10 mg/325 mg Tab PO SCH ×4 (09:47→21:05)
[2018-08-12] MEDS: Lactulose 10 Gm/15 mL 30mL UDC PO SCH ×3 (09:58→17:48)
[2018-08-12] MEDS: INSULIN ASPART, RECOMBINANT 100 UNITS/ML SUBQ SCH ×3 (10:44→18:38)
--- NOTE | 2018-08-12 13:05 | General Progress Note ---
Subjective - Review of Systems Service Date: 08/12/18 Subjective: more conversive, wants to go home Objective - Results Result Diagrams: 08/12/18 08:30 08/12/18 08:30 Recent Labs: Laboratory Last Values WBC 11.2 Th/cmm (4.8-10.8) H 08/12/18 08:30 RBC 4.09 Mil/cmm (4.30-5.70) L 08/12/18 08:30 Hgb 12.3 gm/dL (12-16) 08/12/18 08:30 Hct 37.5 % (41.0-60) L 08/12/18 08:30 MCV 91.5 fl (80-99) 08/12/18 08:30 MCH 30.0 pg (26.0-30.0) 08/12/18 08:30 MCHC Differential 32.8 pg (28.0-36.0) 08/12/18 08:30 RDW 12.7 % (11.5-20.0) 08/12/18 08:30 Plt Count 505 Th/cmm (150-400) H 08/12/18 08:30 MPV 7.0 fl 08/12/18 08:30 Neutrophils % 76.0 % (40.0-80.0) 08/12/18 08:30 Lymphocytes % 15.4 % (20.0-50.0) L 08/12/18 08:30 Monocytes % 6.3 % (2.0-10.0) 08/12/18 08:30 Eosinophils % 1.6 % (0.0-5.0) 08/12/18 08:30 Basophils % 0.7 % (0.0-2.0) 08/12/18 08:30 Sodium 133 mEq/L (136-145) L 08/12/18 08:30 Potassium 3.7 mEq/L (3.5-5.1) 08/12/18 08:30 Chloride 104 mEq/L (98-107) 08/12/18 08:30 Carbon Dioxide 22.8 mEq/L (21.0-31.0) 08/12/18 08:30 Anion Gap 9.9 (7.0-16.0) 08/12/18 08:30 BUN 22 mg/dL (7-25) 08/12/18 08:30 Creatinine 1.2 mg/dL (0.7-1.3) 08/12/18 08:30 Est GFR ( Amer) > 60.0 ml/min (>90) 08/12/18 08:30 Est GFR (Non-Af Amer) > 60.0 ml/min 08/12/18 08:30 BUN/Creatinine Ratio 18.3 08/12/18 08:30 Glucose 202 mg/dL (70-105) H 08/12/18 08:30 POC Glucose 292 MG/DL (70 - 105) H 08/12/18 12:33 Uric Acid 2.9 mg/dL (4.4-7.6) L 08/12/18 08:30 Calcium 8.5 mg/dL (8.6-10.3) L 08/12/18 08:30 Phosphorus 2.5 mg/dL (2.5-5.0) 08/12/18 08:30 Magnesium 1.6 mg/dL (1.9-2.7) L 08/12/18 08:30 Total Bilirubin 0.2 mg/dL (0.3-1.0) L 08/10/18 14:16 AST 7 U/L (13-39) L 08/10/18 14:16 ALT 8 U/L (7-52) 08/10/18 14:16 Alkaline Phosphatase 83 U/L (34-104) 08/10/18 14:16 Troponin I 0.01 ng/mL (0.01-0.05) 08/10/18 14:16 Total Protein 6.1 gm/dL (6.0-8.3) 08/10/18 14:16 Albumin 3.2 gm/dL (4.2-5.5) L 08/10/18 14:16 Globulin 2.9 gm/dL 08/10/18 14:16 Albumin/Globulin Ratio 1.1 (1.0-1.8) 08/10/18 14:16 Triglycerides 322 mg/dL (<150) H 08/10/18 14:16 Cholesterol 134 mg/dL (<200) 08/10/18 14:16 LDL Cholesterol Direct 52 mg/dL (75-193) L 08/10/18 14:16 HDL Cholesterol 38 mg/dL (23-92) 08/10/18 14:16 Amylase 31 U/L (29-103) 08/10/18 14:16 Lipase 38 U/L (11-82) 08/10/18 14:16 Free T4 0.48 ng/dL (0.82-1.77) L 08/10/18 14:16 Free T3 1.1 pg/mL (2.0-4.4) L 08/10/18 14:16 TSH 198.01 uIU/ml (0.34-5.60) H 08/11/18 05:50 Urine Source CLEAN C 08/11/18 01:20 Urine Color YELLOW 08/11/18 01:20 Urine Clarity CLEAR (CLEAR) 08/11/18 01:20 Urine pH 5.5 (4.6 - 8.0) 08/11/18 01:20 Ur Specific [place] 1.025 (1.005-1.030) 08/11/18 01:20 Urine Protein 100 mg/dL (NEGATIVE) H 08/11/18 01:20 Urine Glucose (UA) >=1000 mg/dL (NEGATIVE) H 08/11/18 01:20 Urine Ketones NEGATIVE mg/dL (NEGATIVE) 08/11/18 01:20 Urine Blood NEGATIVE (NEGATIVE) 08/11/18 01:20 Urine Nitrate NEGATIVE (NEGATIVE) 08/11/18 01:20 Urine Bilirubin NEGATIVE (NEGATIVE) 08/11/18 01:20 Urine Urobilinogen 0.2 E.U./dL (0.2 - 1.0) 08/11/18 01:20 Ur Leukocyte Esterase NEGATIVE (NEGATIVE) 08/11/18 01:20 Urine RBC NONE SEEN /hpf (0-5) 08/11/18 01:20 Urine WBC 0-2 /hpf (0-5) 08/11/18 01:20 Ur Epithelial Cells OCCASIONAL /lpf (FEW) 08/11/18 01:20 Urine Bacteria OCCASIONAL /hpf (NONE SEEN) 08/11/18 01:20 Salicylates < 25.0 mg/L (30.0-100.0) L 08/10/18 14:16 Urine Opiates Screen POSITIVE (NEGATIVE) H 08/11/18 01:20 Urine Methadone Screen NEGATIVE (NEGATIVE) 08/11/18 01:20 Acetaminophen < 10.0 ug/mL (10.0-30.0) L 08/10/18 14:16 Ur Barbiturates Screen NEGATIVE (NEGATIVE) 08/11/18 01:20 Ur Tricyclics Screen NEGATIVE (NEGATIVE) 08/11/18 01:20 Ur Phencyclidine Scrn NEGATIVE (NEGATIVE) 08/11/18 01:20 Amphetamines Screen NEGATIVE (NEGATIVE) 08/11/18 01:20 U Methamphetamines Scrn NEGATIVE (NEGATIVE) 08/11/18 01:20 U Benzodiazepines Scrn POSITIVE (NEGATIVE) H 08/11/18 01:20 U Cocaine Metab Screen NEGATIVE (NEGATIVE) 08/11/18 01:20 U Cannabinoids Screen NEGATIVE (NEGATIVE) 08/11/18 01:20 Ethyl Alcohol < 10 mg/dL (0-10) 08/10/18 14:16 Serum Ketones NEGATIVE (NEGATIVE) 08/10/18 14:16 - Physical Exam Vitals and I&O: Vital Signs Temp 98 F 08/12/18 00:00 Pulse 78 08/12/18 09:45 Resp 19 08/12/18 04:00 BP 160/85 08/12/18 09:45 Pulse Ox 97 08/12/18 00:00 Intake & Output 08/11/18 08/12/18 08/12/18 18:59 06:59 18:59 Intake Total 50 Balance 50 Intake: Intake, IV Amount 50 Piperacillin Sodium/ 50 Tazobact 3.375 gm In Sodium Chloride 0.9% 50 ml @ 100 mls/hr IV Q8HR [facility] Rx#:[id number] Active Medications: Current Medications Acetaminophen (Tylenol 650mg Supp) 650 mg RC Q4HR PRN PRN Reason: Pain (Mild) 1-3 Stop: 10/09/18 22:35 Acetaminophen/Hydrocodone Bitart (Exchange 10 Mg/325 Mg) 1 tab PO [facility] Stop: 10/10/18 08:59 Last Admin: 08/12/18 09:47 Dose: 1 tab Atorvastatin Calcium (Lipitor) 40 mg PO DAILY [facility]; Protocol Stop: 10/10/18 08:59 Last Admin: 08/12/18 09:46 Dose: 40 mg Bisacodyl (Dulcolax 10 Mg Supp) 10 mg RC DAILY PRN PRN Reason: Constipation Stop: 10/09/18 22:35 Bupropion HCl (Wellbutrin Sr) 150 mg PO DAILY [facility]; Protocol Stop: 10/10/18 08:59 Last Admin: 08/12/18 09:47 Dose: 150 mg Carvedilol (Coreg) 3.125 mg PO Q12HR [facility] Stop: 10/09/18 22:59 Last Admin: 08/12/18 09:45 Dose: 3.125 mg Clopidogrel Bisulfate (Plavix) 75 mg PO DAILY [facility] Stop: 10/10/18 08:59 Last Admin: 08/12/18 09:46 Dose: 75 mg Gemfibrozil (Lopid) 600 mg PO BID [facility] Stop: 10/10/18 08:59 Last Admin: 08/12/18 09:46 Dose: 600 mg Glipizide (Glucotrol) 5 mg PO DAILY [facility] Stop: 10/10/18 08:59 Last Admin: 08/12/18 09:45 Dose: 5 mg Piperacillin Sod/Tazobactam (Sod 3.375 gm/ Sodium Chloride) 50 mls @ 100 mls/ hr IV Q8HR [facility] Stop: 10/09/18 20:59 Last Admin: 08/12/18 06:03 Dose: Not Given Sodium Chloride (Nacl 0.9%) 1,000 mls @ 150 mls/hr IV .Q6H40M [facility] Stop: 10/10/18 14:59 Last Admin: 08/11/18 17:34 Dose: 150 mls/hr Insulin Aspart (Novolog Insulin Sliding Scale) 0 units SUBQ ACHS [facility]; Protocol Stop: 10/09/18 20:59 Last Admin: 08/12/18 07:22 Dose: 3 units Insulin Aspart (Novolog) 4 units SUBQ TIDWM [facility]; Protocol Stop: 10/10/18 07:59 Last Admin: 08/12/18 10:44 Dose: Not Given Insulin Detemir (Levemir Insulin) 10 units SUBQ BID [facility]; Protocol Stop: 10/10/18 08:59 Lactulose (Cephulac) 20 gm PO BID [facility] Stop: 10/10/18 08:59 Last Admin: 08/12/18 10:07 Dose: Not Given Levothyroxine Sodium (Synthroid) 0.15 mg PO QDAC [facility] Stop: 10/12/18 07:29 Lorazepam (Ativan) 1 mg PO Q4HR PRN; Protocol PRN Reason: Agitation Stop: 10/11/18 11:29 General: Alert, No acute distress HEENT: Atraumatic, EOMI, Mucous membr. moist/pink Neck: Supple, +2 carotid pulse wo bruit Cardiovascular: Regular rate, Normal S1, Normal S2 Lungs: Clear to auscultation Abdomen: Bowel sounds, Soft Extremities: no Edema Neurological: Sensation intact Skin: no Rash Psych/Mental Status: Mood NL Assessment/Plan - Assessment Assessment: Pre renal azotemia Hyponatremia 2/2 Na loss Acute decomp of Psych Ess Htn T2DM Dyslipidemia Hypothyroid Depression Bipolar Disorder - Plan Plan: Lab - Result Diagrams 08/12/18 08:30 08/12/18 08:30 Current Medications Acetaminophen (Tylenol 650mg Supp) 650 mg RC Q4HR PRN PRN Reason: Pain (Mild) 1-3 Stop: 10/09/18 22:35 Acetaminophen/Hydrocodone Bitart (Exchange 10 Mg/325 Mg) 1 tab PO HS [facility] Stop: 10/10/18 08:59 Last Admin: 08/12/18 09:47 Dose: 1 tab Atorvastatin Calcium (Lipitor) 40 mg PO DAILY [facility]; Protocol Stop: 10/10/18 08:59 Last Admin: 08/12/18 09:46 Dose: 40 mg Bisacodyl (Dulcolax 10 Mg Supp) 10 mg RC DAILY PRN PRN Reason: Constipation Stop: 10/09/18 22:35 Bupropion HCl (Wellbutrin Sr) 150 mg PO DAILY [facility]; Protocol Stop: 10/10/18 08:59 Last Admin: 08/12/18 09:47 Dose: 150 mg Carvedilol (Coreg) 3.125 mg PO Q12HR [facility] Stop: 10/09/18 22:59 Last Admin: 08/12/18 09:45 Dose: 3.125 mg Clopidogrel Bisulfate (Plavix) 75 mg PO DAILY [facility] Stop: 10/10/18 08:59 Last Admin: 08/12/18 09:46 Dose: 75 mg Gemfibrozil (Lopid) 600 mg PO BID [facility] Stop: 10/10/18 08:59 Last Admin: 08/12/18 09:46 Dose: 600 mg Glipizide (Glucotrol) 5 mg PO DAILY [facility] Stop: 10/10/18 08:59 Last Admin: 08/12/18 09:45 Dose: 5 mg Piperacillin Sod/Tazobactam (Sod 3.375 gm/ Sodium Chloride) 50 mls @ 100 mls/ hr IV Q8HR [facility] Stop: 10/09/18 20:59 Last Admin: 08/12/18 06:03 Dose: Not Given Sodium Chloride (Nacl 0.9%) 1,000 mls @ 150 mls/hr IV .Q6H40M [facility] Stop: 10/10/18 14:59 Last Admin: 08/11/18 17:34 Dose: 150 mls/hr Insulin Aspart (Novolog Insulin Sliding Scale) 0 units SUBQ ACHS [facility]; Protocol Stop: 10/09/18 20:59 Last Admin: 08/12/18 07:22 Dose: 3 units Insulin Aspart (Novolog) 4 units SUBQ TIDWM [facility]; Protocol Stop: 10/10/18 07:59 Last Admin: 08/12/18 10:44 Dose: Not Given Insulin Detemir (Levemir Insulin) 10 units SUBQ BID [facility]; Protocol Stop: 10/10/18 08:59 Lactulose (Cephulac) 20 gm PO BID [facility] Stop: 10/10/18 08:59 Last Admin: 08/12/18 10:07 Dose: Not Given Levothyroxine Sodium (Synthroid) 0.15 mg PO QDAC [facility] Stop: 10/12/18 07:29 Lorazepam (Ativan) 1 mg PO Q4HR PRN; Protocol PRN Reason: Agitation Stop: 10/11/18 11:29 Lab - Result Diagrams 08/12/18 08:30 08/12/18 08:30 Kidney fnc much improved Na stable @ 133 control BS Nutritional Asmnt/Malnutr-PDOC - Dietary Evaluation Malnutrition Findings (Please click <Entered> for more info): Nutritional Asmnt/Malnutrition Start: 08/11/18 13: 15 Text: Status: Complete Freq: Protocol: Document 08/11/18 13:15 [email or web address] (Rec: 08/11/18 13:22 [email or web address]) Nutritional Asmnt/Malnutrition Patient General Information Nutritional Screening High Risk Diagnosis psychosis Pertinent Medical Hx/Surgical Hx HTN, DM, hyperlipidemia, thyroid disorder, depression, bipolar Subjective Information Pt was seen resting in bed at time of visit. Pt stated he was hungry. Pt ate double breakfast and is always hungry per RN. Glucose 494 at admission noted. Not able to provide diabetic education d/t pt mental status. Current Diet Order/ Nutrition Support CCHO 60gm, 2g NA Pertinent Medications lipitor, glucotrol, novolog, levemir, piperacillin, lactulose, synthroid, NaCl 0.9 % Pertinent Labs 08/11 Na 134, BUN 35, glucose 184, Ca 8.5, POC 186-492 08/10 glucose 494, POC 419-492 Nutritional Hx/Data Height 1.8 m Height (Calculated Centimeters) 180.3 Current Weight (lbs) 81.647 kg Weight (Calculated Kilograms) 81.6 Weight (Calculated Grams) 52166.6 [place] Body Weight 172 Body Mass Index (BMI) 25.1 Weight Status Overweight GI Symptoms GI Symptoms None Last BM not indicated Difficult in: None Food Allergies No Skin Integrity/Comment: skin tear to right upper arm and right knee, abrasion to right first toe saul 15 Current %PO Good (75-100%) Estimated Nutritional Goals BEE in Kcals: Using Current wt Calories/Kcals/Kg 23-27 Kcals Calculated 7235-5520 Protein: Using Current wt Protein g/k.8-1 Protein Calculated 65-81 Fluid: ml 7493-9756 (1ml/kcal) Nutritional Problem 1. Problem Problem altered nutrition related labs Etiology hyperglycemia, electrolyte/ fluid imbalance Signs/Symptoms: Na 134, BUN 35, glucose 184, Ca 8.5, POC 186-492 Malnutrition Alert Is there a minimum of two criteria No selected? Query Text:Check all the applicable criteria. A minimum of two criteria are recommended for diagnosis of either severe or non-severe malnutrition. Malnutrition Related to Morbid Obesity Malnutrition related to morbid obesity No Intervention/Recommendation Comments 1. Continue with CCHO 60gm, 2g NA diet as ordered. MD to adjust insulin for optinal glycemic control. 2. MD to monitor glucose, fluid, and electrolytes 2. Monitor PO intake, wt, labs and skin integrity 3. F/U as moderate risk in 3-5 days Expected Outcomes/Goals Expected Outcomes/Goals Goal: PO intake to meet at least 75% of nutritional needs and improved labs. Reviewed by Vicky Trimble RD
[2018-08-12] MEDS: Insulin Detemir 100 units/mL 10mL Vial SUBQ SCH ×2 (14:11→18:32)
--- NOTE | 2018-08-12 15:27 | Internal Medicine Prog Note ---
Internal Medicine Subjective - Subjective Patient seen and examined:: chart reviewed Patient is:: awake, other (wants to go home ,irritable ) Internal Medicine Objective - Results Result Diagrams: 08/12/18 08:30 08/12/18 08:30 Recent Labs: Laboratory Last Values WBC 11.2 Th/cmm (4.8-10.8) H 08/12/18 08:30 RBC 4.09 Mil/cmm (4.30-5.70) L 08/12/18 08:30 Hgb 12.3 gm/dL (12-16) 08/12/18 08:30 Hct 37.5 % (41.0-60) L 08/12/18 08:30 MCV 91.5 fl (80-99) 08/12/18 08:30 MCH 30.0 pg (26.0-30.0) 08/12/18 08:30 MCHC Differential 32.8 pg (28.0-36.0) 08/12/18 08:30 RDW 12.7 % (11.5-20.0) 08/12/18 08:30 Plt Count 505 Th/cmm (150-400) H 08/12/18 08:30 MPV 7.0 fl 08/12/18 08:30 Neutrophils % 76.0 % (40.0-80.0) 08/12/18 08:30 Lymphocytes % 15.4 % (20.0-50.0) L 08/12/18 08:30 Monocytes % 6.3 % (2.0-10.0) 08/12/18 08:30 Eosinophils % 1.6 % (0.0-5.0) 08/12/18 08:30 Basophils % 0.7 % (0.0-2.0) 08/12/18 08:30 Sodium 133 mEq/L (136-145) L 08/12/18 08:30 Potassium 3.7 mEq/L (3.5-5.1) 08/12/18 08:30 Chloride 104 mEq/L (98-107) 08/12/18 08:30 Carbon Dioxide 22.8 mEq/L (21.0-31.0) 08/12/18 08:30 Anion Gap 9.9 (7.0-16.0) 08/12/18 08:30 BUN 22 mg/dL (7-25) 08/12/18 08:30 Creatinine 1.2 mg/dL (0.7-1.3) 08/12/18 08:30 Est GFR ( Amer) > 60.0 ml/min (>90) 08/12/18 08:30 Est GFR (Non-Af Amer) > 60.0 ml/min 08/12/18 08:30 BUN/Creatinine Ratio 18.3 08/12/18 08:30 Glucose 202 mg/dL (70-105) H 08/12/18 08:30 POC Glucose 292 MG/DL (70 - 105) H 08/12/18 12:33 Uric Acid 2.9 mg/dL (4.4-7.6) L 08/12/18 08:30 Calcium 8.5 mg/dL (8.6-10.3) L 08/12/18 08:30 Phosphorus 2.5 mg/dL (2.5-5.0) 08/12/18 08:30 Magnesium 1.6 mg/dL (1.9-2.7) L 08/12/18 08:30 Total Bilirubin 0.2 mg/dL (0.3-1.0) L 08/10/18 14:16 AST 7 U/L (13-39) L 08/10/18 14:16 ALT 8 U/L (7-52) 08/10/18 14:16 Alkaline Phosphatase 83 U/L (34-104) 08/10/18 14:16 Troponin I 0.01 ng/mL (0.01-0.05) 08/10/18 14:16 Total Protein 6.1 gm/dL (6.0-8.3) 08/10/18 14:16 Albumin 3.2 gm/dL (4.2-5.5) L 08/10/18 14:16 Globulin 2.9 gm/dL 08/10/18 14:16 Albumin/Globulin Ratio 1.1 (1.0-1.8) 08/10/18 14:16 Triglycerides 322 mg/dL (<150) H 08/10/18 14:16 Cholesterol 134 mg/dL (<200) 08/10/18 14:16 LDL Cholesterol Direct 52 mg/dL (75-193) L 08/10/18 14:16 HDL Cholesterol 38 mg/dL (23-92) 08/10/18 14:16 Amylase 31 U/L (29-103) 08/10/18 14:16 Lipase 38 U/L (11-82) 08/10/18 14:16 Free T4 0.48 ng/dL (0.82-1.77) L 08/10/18 14:16 Free T3 1.1 pg/mL (2.0-4.4) L 08/10/18 14:16 TSH 198.01 uIU/ml (0.34-5.60) H 08/11/18 05:50 Urine Source CLEAN C 08/11/18 01:20 Urine Color YELLOW 08/11/18 01:20 Urine Clarity CLEAR (CLEAR) 08/11/18 01:20 Urine pH 5.5 (4.6 - 8.0) 08/11/18 01:20 Ur Specific [place] 1.025 (1.005-1.030) 08/11/18 01:20 Urine Protein 100 mg/dL (NEGATIVE) H 08/11/18 01:20 Urine Glucose (UA) >=1000 mg/dL (NEGATIVE) H 08/11/18 01:20 Urine Ketones NEGATIVE mg/dL (NEGATIVE) 08/11/18 01:20 Urine Blood NEGATIVE (NEGATIVE) 08/11/18 01:20 Urine Nitrate NEGATIVE (NEGATIVE) 08/11/18 01:20 Urine Bilirubin NEGATIVE (NEGATIVE) 08/11/18 01:20 Urine Urobilinogen 0.2 E.U./dL (0.2 - 1.0) 08/11/18 01:20 Ur Leukocyte Esterase NEGATIVE (NEGATIVE) 08/11/18 01:20 Urine RBC NONE SEEN /hpf (0-5) 08/11/18 01:20 Urine WBC 0-2 /hpf (0-5) 08/11/18 01:20 Ur Epithelial Cells OCCASIONAL /lpf (FEW) 08/11/18 01:20 Urine Bacteria OCCASIONAL /hpf (NONE SEEN) 08/11/18 01:20 Salicylates < 25.0 mg/L (30.0-100.0) L 08/10/18 14:16 Urine Opiates Screen POSITIVE (NEGATIVE) H 08/11/18 01:20 Urine Methadone Screen NEGATIVE (NEGATIVE) 08/11/18 01:20 Acetaminophen < 10.0 ug/mL (10.0-30.0) L 08/10/18 14:16 Ur Barbiturates Screen NEGATIVE (NEGATIVE) 08/11/18 01:20 Ur Tricyclics Screen NEGATIVE (NEGATIVE) 08/11/18 01:20 Ur Phencyclidine Scrn NEGATIVE (NEGATIVE) 08/11/18 01:20 Amphetamines Screen NEGATIVE (NEGATIVE) 08/11/18 01:20 U Methamphetamines Scrn NEGATIVE (NEGATIVE) 08/11/18 01:20 U Benzodiazepines Scrn POSITIVE (NEGATIVE) H 08/11/18 01:20 U Cocaine Metab Screen NEGATIVE (NEGATIVE) 08/11/18 01:20 U Cannabinoids Screen NEGATIVE (NEGATIVE) 08/11/18 01:20 Ethyl Alcohol < 10 mg/dL (0-10) 08/10/18 14:16 Serum Ketones NEGATIVE (NEGATIVE) 08/10/18 14:16 - Physical Exam Vitals and I&O: Vital Signs Temp 97.0 F 08/12/18 12:00 Pulse 78 08/12/18 12:00 Resp 20 08/12/18 12:00 BP 127/73 08/12/18 12:00 Pulse Ox 97 08/12/18 12:00 Intake & Output 08/11/18 08/12/18 08/12/18 18:59 06:59 18:59 Intake Total 50 Balance 50 Intake: Intake, IV Amount 50 Piperacillin Sodium/ 50 Tazobact 3.375 gm In Sodium Chloride 0.9% 50 ml @ 100 mls/hr IV Q8HR [facility] Rx#:[id number] Active Medications: Current Medications Acetaminophen (Tylenol 650mg Supp) 650 mg RC Q4HR PRN PRN Reason: Pain (Mild) 1-3 Stop: 10/09/18 22:35 Acetaminophen/Hydrocodone Bitart ([place] 10 Mg/325 Mg) 1 tab PO [facility] Stop: 10/10/18 08:59 Last Admin: 08/12/18 15:01 Dose: 1 tab Atorvastatin Calcium (Lipitor) 40 mg PO DAILY [facility]; Protocol Stop: 10/10/18 08:59 Last Admin: 08/12/18 09:46 Dose: 40 mg Bisacodyl (Dulcolax 10 Mg Supp) 10 mg RC DAILY PRN PRN Reason: Constipation Stop: 10/09/18 22:35 Bupropion HCl (Wellbutrin Sr) 150 mg PO DAILY [facility]; Protocol Stop: 10/10/18 08:59 Last Admin: 08/12/18 09:47 Dose: 150 mg Carvedilol (Coreg) 3.125 mg PO Q12HR [facility] Stop: 10/09/18 22:59 Last Admin: 08/12/18 09:45 Dose: 3.125 mg Clopidogrel Bisulfate (Plavix) 75 mg PO DAILY [facility] Stop: 10/10/18 08:59 Last Admin: 08/12/18 09:46 Dose: 75 mg Gemfibrozil (Lopid) 600 mg PO BID [facility] Stop: 10/10/18 08:59 Last Admin: 08/12/18 09:46 Dose: 600 mg Glipizide (Glucotrol) 5 mg PO DAILY [facility] Stop: 10/10/18 08:59 Last Admin: 08/12/18 09:45 Dose: 5 mg Piperacillin Sod/Tazobactam (Sod 3.375 gm/ Sodium Chloride) 50 mls @ 100 mls/ hr IV Q8HR [facility] Stop: 10/09/18 20:59 Last Admin: 08/12/18 14:54 Dose: Not Given Sodium Chloride (Nacl 0.9%) 1,000 mls @ 150 mls/hr IV .Q6H40M [facility] Stop: 10/10/18 14:59 Last Admin: 08/11/18 17:34 Dose: 150 mls/hr Insulin Aspart (Novolog Insulin Sliding Scale) 0 units SUBQ ACHS [facility]; Protocol Stop: 10/09/18 20:59 Last Admin: 08/12/18 13:00 Dose: 7 units Insulin Aspart (Novolog) 4 units SUBQ TIDWM [facility]; Protocol Stop: 10/10/18 07:59 Last Admin: 08/12/18 14:10 Dose: Not Given Insulin Detemir (Levemir Insulin) 10 units SUBQ BID [facility]; Protocol Stop: 10/10/18 08:59 Last Admin: 08/12/18 14:11 Dose: Not Given Lactulose (Cephulac) 20 gm PO BID [facility] Stop: 10/10/18 08:59 Last Admin: 08/12/18 10:07 Dose: Not Given Levothyroxine Sodium (Synthroid) 0.15 mg PO QDAC [facility] Stop: 10/12/18 07:29 Lorazepam (Ativan) 1 mg PO Q4HR PRN; Protocol PRN Reason: Agitation Stop: 10/11/18 11:29 Last Admin: 08/12/18 15:01 Dose: 1 mg General: alert HEENT: NC/AT Neck: Supple Lungs: CTAB Cardiovascular: RRR, Normal S1, Normal S2 Abdomen: soft Extremities: clear Neurological: no change Internal Medicine Assmt/Plan - Assessment Assessment: severe hyperglycemia hyponatremia leukocytosis hypothyrodism dm uncontrolled anemia - Plan Plan: as per order sheet Nutritional Asmnt/Malnutr-PDOC - Dietary Evaluation Malnutrition Findings (Please click <Entered> for more info): Nutritional Asmnt/Malnutrition Start: 08/11/18 13: 15 Text: Status: Complete Freq: Protocol: Document 08/11/18 13:15 [email or web address] (Rec: 08/11/18 13:22 [email or web address]) Nutritional Asmnt/Malnutrition Patient General Information Nutritional Screening High Risk Diagnosis psychosis Pertinent Medical Hx/Surgical Hx HTN, DM, hyperlipidemia, thyroid disorder, depression, bipolar Subjective Information Pt was seen resting in bed at time of visit. Pt stated he was hungry. Pt ate double breakfast and is always hungry per RN. Glucose 494 at admission noted. Not able to provide diabetic education d/t pt mental status. Current Diet Order/ Nutrition Support CCHO 60gm, 2g NA Pertinent Medications lipitor, glucotrol, novolog, levemir, piperacillin, lactulose, synthroid, NaCl 0.9 % Pertinent Labs 08/11 Na 134, BUN 35, glucose 184, Ca 8.5, POC 186-492 08/10 glucose 494, POC 419-492 Nutritional Hx/Data Height 1.8 m Height (Calculated Centimeters) 180.3 Current Weight (lbs) 81.647 kg Weight (Calculated Kilograms) 81.6 Weight (Calculated Grams) 96090.6 [place] Body Weight 172 Body Mass Index (BMI) 25.1 Weight Status Overweight GI Symptoms GI Symptoms None Last BM not indicated Difficult in: None Food Allergies No Skin Integrity/Comment: skin tear to right upper arm and right knee, abrasion to right first toe saul 15 Current %PO Good (75-100%) Estimated Nutritional Goals BEE in Kcals: Using Current wt Calories/Kcals/Kg 23-27 Kcals Calculated 8280-2810 Protein: Using Current wt Protein g/k.8-1 Protein Calculated 65-81 Fluid: ml 0577-4111 (1ml/kcal) Nutritional Problem 1. Problem Problem altered nutrition related labs Etiology hyperglycemia, electrolyte/ fluid imbalance Signs/Symptoms: Na 134, BUN 35, glucose 184, Ca 8.5, POC 186-492 Malnutrition Alert Is there a minimum of two criteria No selected? Query Text:Check all the applicable criteria. A minimum of two criteria are recommended for diagnosis of either severe or non-severe malnutrition. Malnutrition Related to Morbid Obesity Malnutrition related to morbid obesity No Intervention/Recommendation Comments 1. [facility], 2g NA diet as ordered. MD to adjust insulin for optinal glycemic control. 2. MD to monitor glucose, fluid, and electrolytes 2. Monitor PO intake, wt, labs and skin integrity 3. F/U as moderate risk in 3-5 days Expected Outcomes/Goals Expected Outcomes/Goals Goal: PO intake to meet at least 75% of nutritional needs and improved labs. Reviewed by Vicky Trimble RD
[2018-08-12] MEDS ORDERED: Mag Sulfate 2gm/50mL Premix 2 GM/50 ML BAG IV ONE (15:31)
--- NOTE | 2018-08-12 16:37 | Progress Notes ---
DATE: 08/12/2018 Case was discussed with staff of the patient, reviewed records. The patient continues to be confused, irritable. The patient was referred here because of aggressive behavior from [facility]. However, he has uncontrolled diabetes. The patient still unable to tell me the date, where he is. He is a poor historian. He is unpredictable, impulsive. The patient was restarted on his medication, which is Wellbutrin 150 mg daily and with no side effects, no sedation, no nausea. The patient needs to go to [facility] when medically cleared. Thank you very much for allowing me to participate in the care of this most interesting gentleman. JOB# [id number]
[2018-08-13] MEDS: Sodium Chloride 0.9% 1,000 ML IV SCH ×3 (02:01→19:51)
[2018-08-13] MEDS: Levothyroxine 0.075 Mg Tab PO SCH (06:55)
[2018-08-13] MEDS: INSULIN ASPART SLIDING SCALE 100 UNITS/ML UNIT SUBQ SCH ×4 (07:02→21:00)
--- NOTE | 2018-08-13 09:11 | Infectious Disease Prog Note ---
Infectious Disease Subjective - Review of Systems Service Date: 08/12/18 Subjective: cc pn hpi- pt cx noted ros no efvr o/e vs jojo chandlerer abd sift ext pilse Vital Signs - 24 hr 08/12/18 08/12/18 08/12/18 09:45 12:00 16:00 Temp 97.0 F HR 78 78 RR 20 19 BP 160/85 127/73 O2 Sat % 97 08/12/18 08/12/18 08/12/18 20:00 21:04 23:00 Temp 97.9 F HR 85 78 RR 19 19 BP 150/78 153/94 O2 Sat % 95 08/13/18 08/13/18 08/13/18 00:00 04:00 06:39 Temp 97.0 F HR 76 RR 19 19 18 BP 181/99 O2 Sat % 95 Microbiology 08/10/18 18:55 Blood - Preliminary NO GROWTH AFTER 48 HOURS 08/10/18 18:40 Blood - Preliminary NO GROWTH AFTER 48 HOURS 08/10/18 01:20 Urine Urine Culture - Final 08/11/18 02:45 Wound - Final 08/11/18 02:45 Wound Aerobic Culture - Preliminary 08/10/18 14:15 Nares - Final NO MRSA ISOLATED Diagnoses ANEMIA, UNSPECIFIED (08/10/18) ELEVATED WHITE BLOOD CELL COUNT, UNSPECIFIED (08/10/18) HYPOTHYROIDISM, UNSPECIFIED (08/10/18) TYPE 2 DIABETES MELLITUS WITH HYPERGLYCEMIA (08/10/18) HYPO-OSMOLALITY AND HYPONATREMIA (08/10/18) ESSENTIAL (PRIMARY) HYPERTENSION (08/10/18) WEAKNESS (08/10/18) Current Medications Acetaminophen (Tylenol 650mg Supp) 650 mg RC Q4HR PRN PRN Reason: Pain (Mild) 1-3 Stop: 10/09/18 22:35 Last Admin: 08/13/18 05:11 Dose: 650 mg Acetaminophen/Hydrocodone Bitart ([place] 10 Mg/325 Mg) [address] [facility] Stop: 10/10/18 08:59 Last Admin: 08/12/18 21:05 Dose: 1 tab Atorvastatin Calcium (Lipitor) 40 mg PO DAILY [facility]; Protocol Stop: 10/10/18 08:59 Last Admin: 08/12/18 09:46 Dose: 40 mg Bisacodyl (Dulcolax 10 Mg Supp) 10 mg RC DAILY PRN PRN Reason: Constipation Stop: 10/09/18 22:35 Bupropion HCl (Wellbutrin Sr) 150 mg PO DAILY [facility]; Protocol Stop: 10/10/18 08:59 Last Admin: 08/12/18 09:47 Dose: 150 mg Carvedilol (Coreg) 3.125 mg PO Q12HR [facility] Stop: 10/09/18 22:59 Last Admin: 08/12/18 21:04 Dose: 3.125 mg Clopidogrel Bisulfate (Plavix) 75 mg PO DAILY [facility] Stop: 10/10/18 08:59 Last Admin: 08/12/18 09:46 Dose: 75 mg Gemfibrozil (Lopid) 600 mg PO BID [facility] Stop: 10/10/18 08:59 Last Admin: 08/12/18 17:48 Dose: Not Given Glipizide (Glucotrol) 5 mg PO DAILY [facility] Stop: 10/10/18 08:59 Last Admin: 08/12/18 09:45 Dose: 5 mg Piperacillin Sod/Tazobactam (Sod 3.375 gm/ Sodium Chloride) 50 mls @ 100 mls/ hr IV Q8HR [facility] Stop: 10/09/18 20:59 Last Infusion: 08/13/18 06:00 Dose: Infused Sodium Chloride (Nacl 0.9%) 1,000 mls @ 150 mls/hr IV .Q6H40M [facility] Stop: 10/10/18 14:59 Last Admin: 08/13/18 02:01 Dose: 150 mls/hr Insulin Aspart (Novolog Insulin Sliding Scale) 0 units SUBQ ACHS [facility]; Protocol Stop: 10/09/18 20:59 Last Admin: 08/13/18 07:02 Dose: Not Given Insulin Detemir (Levemir Insulin) 10 units SUBQ BID [facility]; Protocol Stop: 10/10/18 08:59 Last Admin: 08/12/18 18:32 Dose: 10 units Lactulose (Cephulac) 20 gm PO BID [facility] Stop: 10/10/18 08:59 Last Admin: 08/12/18 17:48 Dose: Not Given Levothyroxine Sodium (Synthroid) 0.15 mg PO QDAC [facility] Stop: 10/12/18 07:29 Last Admin: 08/13/18 06:55 Dose: 0.15 mg Lorazepam (Ativan) 1 mg PO Q4HR PRN; Protocol PRN Reason: Agitation Stop: 10/11/18 11:29 Last Admin: 08/13/18 02:21 Dose: 1 mg Infectious Disease Objective - Results Result Diagrams: 08/12/18 08:30 08/12/18 08:30 Recent Labs: Laboratory Last Values WBC 11.2 Th/cmm (4.8-10.8) H 08/12/18 08:30 RBC 4.09 Mil/cmm (4.30-5.70) L 08/12/18 08:30 Hgb 12.3 gm/dL (12-16) 08/12/18 08:30 Hct 37.5 % (41.0-60) L 08/12/18 08:30 MCV 91.5 fl (80-99) 08/12/18 08:30 MCH 30.0 pg (26.0-30.0) 08/12/18 08:30 MCHC Differential 32.8 pg (28.0-36.0) 08/12/18 08:30 RDW 12.7 % (11.5-20.0) 08/12/18 08:30 Plt Count 505 Th/cmm (150-400) H 08/12/18 08:30 MPV 7.0 fl 08/12/18 08:30 Neutrophils % 76.0 % (40.0-80.0) 08/12/18 08:30 Lymphocytes % 15.4 % (20.0-50.0) L 08/12/18 08:30 Monocytes % 6.3 % (2.0-10.0) 08/12/18 08:30 Eosinophils % 1.6 % (0.0-5.0) 08/12/18 08:30 Basophils % 0.7 % (0.0-2.0) 08/12/18 08:30 Sodium 133 mEq/L (136-145) L 08/12/18 08:30 Potassium 3.7 mEq/L (3.5-5.1) 08/12/18 08:30 Chloride 104 mEq/L (98-107) 08/12/18 08:30 Carbon Dioxide 22.8 mEq/L (21.0-31.0) 08/12/18 08:30 Anion Gap 9.9 (7.0-16.0) 08/12/18 08:30 BUN 22 mg/dL (7-25) 08/12/18 08:30 Creatinine 1.2 mg/dL (0.7-1.3) 08/12/18 08:30 Est GFR ( Amer) > 60.0 ml/min (>90) 08/12/18 08:30 Est GFR (Non-Af Amer) > 60.0 ml/min 08/12/18 08:30 BUN/Creatinine Ratio 18.3 08/12/18 08:30 Glucose 202 mg/dL (70-105) H 08/12/18 08:30 POC Glucose 312 MG/DL (70 - 105) H 08/12/18 21:03 Uric Acid 2.9 mg/dL (4.4-7.6) L 08/12/18 08:30 Calcium 8.5 mg/dL (8.6-10.3) L 08/12/18 08:30 Phosphorus 2.5 mg/dL (2.5-5.0) 08/12/18 08:30 Magnesium 1.9 mg/dL (1.9-2.7) 08/13/18 05:16 Total Bilirubin 0.2 mg/dL (0.3-1.0) L 08/10/18 14:16 AST 7 U/L (13-39) L 08/10/18 14:16 ALT 8 U/L (7-52) 08/10/18 14:16 Alkaline Phosphatase 83 U/L (34-104) 08/10/18 14:16 Troponin I 0.01 ng/mL (0.01-0.05) 08/10/18 14:16 Total Protein 6.1 gm/dL (6.0-8.3) 08/10/18 14:16 Albumin 3.2 gm/dL (4.2-5.5) L 08/10/18 14:16 Globulin 2.9 gm/dL 08/10/18 14:16 Albumin/Globulin Ratio 1.1 (1.0-1.8) 08/10/18 14:16 Triglycerides 322 mg/dL (<150) H 08/10/18 14:16 Cholesterol 134 mg/dL (<200) 08/10/18 14:16 LDL Cholesterol Direct 52 mg/dL (75-193) L 08/10/18 14:16 HDL Cholesterol 38 mg/dL (23-92) 08/10/18 14:16 Amylase 31 U/L (29-103) 08/10/18 14:16 Lipase 38 U/L (11-82) 08/10/18 14:16 Free T4 0.48 ng/dL (0.82-1.77) L 08/10/18 14:16 Free T3 1.1 pg/mL (2.0-4.4) L 08/10/18 14:16 TSH 198.01 uIU/ml (0.34-5.60) H 08/11/18 05:50 Urine Source CLEAN C 08/11/18 01:20 Urine Color YELLOW 08/11/18 01:20 Urine Clarity CLEAR (CLEAR) 08/11/18 01:20 Urine pH 5.5 (4.6 - 8.0) 08/11/18 01:20 Ur Specific [place] 1.025 (1.005-1.030) 08/11/18 01:20 Urine Protein 100 mg/dL (NEGATIVE) H 08/11/18 01:20 Urine Glucose (UA) >=1000 mg/dL (NEGATIVE) H 08/11/18 01:20 Urine Ketones NEGATIVE mg/dL (NEGATIVE) 08/11/18 01:20 Urine Blood NEGATIVE (NEGATIVE) 08/11/18 01:20 Urine Nitrate NEGATIVE (NEGATIVE) 08/11/18 01:20 Urine Bilirubin NEGATIVE (NEGATIVE) 08/11/18 01:20 Urine Urobilinogen 0.2 E.U./dL (0.2 - 1.0) 08/11/18 01:20 Ur Leukocyte Esterase NEGATIVE (NEGATIVE) 08/11/18 01:20 Urine RBC NONE SEEN /hpf (0-5) 08/11/18 01:20 Urine WBC 0-2 /hpf (0-5) 08/11/18 01:20 Ur Epithelial Cells OCCASIONAL /lpf (FEW) 08/11/18 01:20 Urine Bacteria OCCASIONAL /hpf (NONE SEEN) 08/11/18 01:20 Salicylates < 25.0 mg/L (30.0-100.0) L 08/10/18 14:16 Urine Opiates Screen POSITIVE (NEGATIVE) H 08/11/18 01:20 Urine Methadone Screen NEGATIVE (NEGATIVE) 08/11/18 01:20 Acetaminophen < 10.0 ug/mL (10.0-30.0) L 08/10/18 14:16 Ur Barbiturates Screen NEGATIVE (NEGATIVE) 08/11/18 01:20 Ur Tricyclics Screen NEGATIVE (NEGATIVE) 08/11/18 01:20 Ur Phencyclidine Scrn NEGATIVE (NEGATIVE) 08/11/18 01:20 Amphetamines Screen NEGATIVE (NEGATIVE) 08/11/18 01:20 U Methamphetamines Scrn NEGATIVE (NEGATIVE) 08/11/18 01:20 U Benzodiazepines Scrn POSITIVE (NEGATIVE) H 08/11/18 01:20 U Cocaine Metab Screen NEGATIVE (NEGATIVE) 08/11/18 01:20 U Cannabinoids Screen NEGATIVE (NEGATIVE) 08/11/18 01:20 Ethyl Alcohol < 10 mg/dL (0-10) 08/10/18 14:16 Serum Ketones NEGATIVE (NEGATIVE) 08/10/18 14:16 - Physical Exam Vitals and I&O: Vital Signs Temp 97.0 F 08/13/18 06:39 Pulse 76 08/13/18 06:39 Resp 18 08/13/18 06:39 BP 181/99 08/13/18 06:39 Pulse Ox 95 08/13/18 06:39 Intake & Output 08/12/18 08/13/18 08/13/18 18:59 06:59 18:59 Intake Total 100 Balance 100 Intake: Intake, IV Amount 100 Piperacillin Sodium/ 100 Tazobact 3.375 gm In Sodium Chloride 0.9% 50 ml @ 100 mls/hr IV Q8HR [facility] Rx#:[id number] Active Medications: Current Medications Acetaminophen (Tylenol 650mg Supp) 650 mg RC Q4HR PRN PRN Reason: Pain (Mild) 1-3 Stop: 10/09/18 22:35 Last Admin: 08/13/18 05:11 Dose: 650 mg Acetaminophen/Hydrocodone Bitart ([place] 10 Mg/325 Mg) 1 tab PO [facility] Stop: 10/10/18 08:59 Last Admin: 08/12/18 21:05 Dose: 1 tab Atorvastatin Calcium (Lipitor) 40 mg PO DAILY [facility]; Protocol Stop: 10/10/18 08:59 Last Admin: 08/12/18 09:46 Dose: 40 mg Bisacodyl (Dulcolax 10 Mg Supp) 10 mg RC DAILY PRN PRN Reason: Constipation Stop: 10/09/18 22:35 Bupropion HCl (Wellbutrin Sr) 150 mg PO DAILY [facility]; Protocol Stop: 10/10/18 08:59 Last Admin: 08/12/18 09:47 Dose: 150 mg Carvedilol (Coreg) 3.125 mg PO Q12HR [facility] Stop: 10/09/18 22:59 Last Admin: 08/12/18 21:04 Dose: 3.125 mg Clopidogrel Bisulfate (Plavix) 75 mg PO DAILY [facility] Stop: 10/10/18 08:59 Last Admin: 08/12/18 09:46 Dose: 75 mg Gemfibrozil (Lopid) 600 mg PO BID [facility] Stop: 10/10/18 08:59 Last Admin: 08/12/18 17:48 Dose: Not Given Glipizide (Glucotrol) 5 mg PO DAILY [facility] Stop: 10/10/18 08:59 Last Admin: 08/12/18 09:45 Dose: 5 mg Piperacillin Sod/Tazobactam (Sod 3.375 gm/ Sodium Chloride) 50 mls @ 100 mls/ hr IV Q8HR [facility] Stop: 10/09/18 20:59 Last Infusion: 08/13/18 06:00 Dose: Infused Sodium Chloride (Nacl 0.9%) 1,000 mls @ 150 mls/hr IV .Q6H40M [facility] Stop: 10/10/18 14:59 Last Admin: 08/13/18 02:01 Dose: 150 mls/hr Insulin Aspart (Novolog Insulin Sliding Scale) 0 units SUBQ ACHS [facility]; Protocol Stop: 10/09/18 20:59 Last Admin: 08/13/18 07:02 Dose: Not Given Insulin Detemir (Levemir Insulin) 10 units SUBQ BID [facility]; Protocol Stop: 10/10/18 08:59 Last Admin: 08/12/18 18:32 Dose: 10 units Lactulose (Cephulac) 20 gm PO BID [facility] Stop: 10/10/18 08:59 Last Admin: 08/12/18 17:48 Dose: Not Given Levothyroxine Sodium (Synthroid) 0.15 mg PO QDAC [facility] Stop: 10/12/18 07:29 Last Admin: 08/13/18 06:55 Dose: 0.15 mg Lorazepam (Ativan) 1 mg PO Q4HR PRN; Protocol PRN Reason: Agitation Stop: 10/11/18 11:29 Last Admin: 08/13/18 02:21 Dose: 1 mg Nutritional Asmnt/Malnutr-PDOC - Dietary Evaluation Malnutrition Findings (Please click <Entered> for more info): Nutritional Asmnt/Malnutrition Start: 08/11/18 13: 15 Text: Status: Complete Freq: Protocol: Document 08/11/18 13:15 [email or web address] (Rec: 08/11/18 13:22 [email or web address]) Nutritional Asmnt/Malnutrition Patient General Information Nutritional Screening High Risk Diagnosis psychosis Pertinent Medical Hx/Surgical Hx HTN, DM, hyperlipidemia, thyroid disorder, depression, bipolar Subjective Information Pt was seen resting in bed at time of visit. Pt stated he was hungry. Pt ate double breakfast and is always hungry per RN. Glucose 494 at admission noted. Not able to provide diabetic education d/t pt mental status. Current Diet Order/ Nutrition Support CCHO 60gm, 2g NA Pertinent Medications lipitor, glucotrol, novolog, levemir, piperacillin, lactulose, synthroid, NaCl 0.9 % Pertinent Labs 08/11 Na 134, BUN 35, glucose 184, Ca 8.5, POC [phone] 08/10 glucose 494, POC [phone] Nutritional Hx/Data Height 1.8 m Height (Calculated Centimeters) 180.3 Current Weight (lbs) 81.647 kg Weight (Calculated Kilograms) 81.6 Weight (Calculated Grams) 04736.6 [place] Body Weight 172 Body Mass Index (BMI) 25.1 Weight Status Overweight GI Symptoms GI Symptoms None Last BM not indicated Difficult in: None Food Allergies No Skin Integrity/Comment: skin tear to right upper arm and right knee, abrasion to right first toe saul 15 Current %PO Good (75-100%) Estimated Nutritional Goals BEE in Kcals: Using Current wt Calories/Kcals/Kg 23-27 Kcals Calculated 9689-2377 Protein: Using Current wt Protein g/k.8-1 Protein Calculated 65-81 Fluid: ml 9681-5046 (1ml/kcal) Nutritional Problem 1. Problem Problem altered nutrition related labs Etiology hyperglycemia, electrolyte/ fluid imbalance Signs/Symptoms: Na 134, BUN 35, glucose 184, Ca 8.5, POC [phone] Malnutrition Alert Is there a minimum of two criteria No selected? Query Text:Check all the applicable criteria. A minimum of two criteria are recommended for diagnosis of either severe or non-severe malnutrition. Malnutrition Related to Morbid Obesity Malnutrition related to morbid obesity No Intervention/Recommendation Comments 1. Continue with CCHO 60gm, 2g NA diet as ordered. MD to adjust insulin for optinal glycemic control. 2. MD to monitor glucose, fluid, and electrolytes 2. Monitor PO intake, wt, labs and skin integrity 3. F/U as moderate risk in 3-5 days Expected Outcomes/Goals Expected Outcomes/Goals Goal: PO intake to meet at least 75% of nutritional needs and improved labs. Reviewed by Vicky Trimble RD
[2018-08-13] MEDS: Hydrocodone/APAP 10 mg/325 mg Tab PO SCH ×4 (09:37→20:58)
[2018-08-13] MEDS: Lactulose 10 Gm/15 mL 30mL UDC PO SCH ×2 (09:40→17:10)
[2018-08-13] MEDS: Insulin Detemir 100 units/mL 10mL Vial SUBQ SCH ×2 (09:43→17:48)
--- NOTE | 2018-08-13 11:25 | General Progress Note ---
Subjective - Review of Systems Service Date: 08/13/18 Subjective: more conversive, still wants to go home Objective - Results Result Diagrams: 08/12/18 08:30 08/12/18 08:30 Recent Labs: Laboratory Last Values WBC 11.2 Th/cmm (4.8-10.8) H 08/12/18 08:30 RBC 4.09 Mil/cmm (4.30-5.70) L 08/12/18 08:30 Hgb 12.3 gm/dL (12-16) 08/12/18 08:30 Hct 37.5 % (41.0-60) L 08/12/18 08:30 MCV 91.5 fl (80-99) 08/12/18 08:30 MCH 30.0 pg (26.0-30.0) 08/12/18 08:30 MCHC Differential 32.8 pg (28.0-36.0) 08/12/18 08:30 RDW 12.7 % (11.5-20.0) 08/12/18 08:30 Plt Count 505 Th/cmm (150-400) H 08/12/18 08:30 MPV 7.0 fl 08/12/18 08:30 Neutrophils % 76.0 % (40.0-80.0) 08/12/18 08:30 Lymphocytes % 15.4 % (20.0-50.0) L 08/12/18 08:30 Monocytes % 6.3 % (2.0-10.0) 08/12/18 08:30 Eosinophils % 1.6 % (0.0-5.0) 08/12/18 08:30 Basophils % 0.7 % (0.0-2.0) 08/12/18 08:30 Sodium 133 mEq/L (136-145) L 08/12/18 08:30 Potassium 3.7 mEq/L (3.5-5.1) 08/12/18 08:30 Chloride 104 mEq/L (98-107) 08/12/18 08:30 Carbon Dioxide 22.8 mEq/L (21.0-31.0) 08/12/18 08:30 Anion Gap 9.9 (7.0-16.0) 08/12/18 08:30 BUN 22 mg/dL (7-25) 08/12/18 08:30 Creatinine 1.2 mg/dL (0.7-1.3) 08/12/18 08:30 Est GFR ( Amer) > 60.0 ml/min (>90) 08/12/18 08:30 Est GFR (Non-Af Amer) > 60.0 ml/min 08/12/18 08:30 BUN/Creatinine Ratio 18.3 08/12/18 08:30 Glucose 202 mg/dL (70-105) H 08/12/18 08:30 POC Glucose 312 MG/DL (70 - 105) H 08/12/18 21:03 Uric Acid 2.9 mg/dL (4.4-7.6) L 08/12/18 08:30 Calcium 8.5 mg/dL (8.6-10.3) L 08/12/18 08:30 Phosphorus 2.5 mg/dL (2.5-5.0) 08/12/18 08:30 Magnesium 1.9 mg/dL (1.9-2.7) 08/13/18 05:16 Total Bilirubin 0.2 mg/dL (0.3-1.0) L 08/10/18 14:16 AST 7 U/L (13-39) L 08/10/18 14:16 ALT 8 U/L (7-52) 08/10/18 14:16 Alkaline Phosphatase 83 U/L (34-104) 08/10/18 14:16 Troponin I 0.01 ng/mL (0.01-0.05) 08/10/18 14:16 Total Protein 6.1 gm/dL (6.0-8.3) 08/10/18 14:16 Albumin 3.2 gm/dL (4.2-5.5) L 08/10/18 14:16 Globulin 2.9 gm/dL 08/10/18 14:16 Albumin/Globulin Ratio 1.1 (1.0-1.8) 08/10/18 14:16 Triglycerides 322 mg/dL (<150) H 08/10/18 14:16 Cholesterol 134 mg/dL (<200) 08/10/18 14:16 LDL Cholesterol Direct 52 mg/dL (75-193) L 08/10/18 14:16 HDL Cholesterol 38 mg/dL (23-92) 08/10/18 14:16 Amylase 31 U/L (29-103) 08/10/18 14:16 Lipase 38 U/L (11-82) 08/10/18 14:16 Free T4 0.48 ng/dL (0.82-1.77) L 08/10/18 14:16 Free T3 1.1 pg/mL (2.0-4.4) L 08/10/18 14:16 TSH 198.01 uIU/ml (0.34-5.60) H 08/11/18 05:50 Urine Source CLEAN C 08/11/18 01:20 Urine Color YELLOW 08/11/18 01:20 Urine Clarity CLEAR (CLEAR) 08/11/18 01:20 Urine pH 5.5 (4.6 - 8.0) 08/11/18 01:20 Ur Specific [place] 1.025 (1.005-1.030) 08/11/18 01:20 Urine Protein 100 mg/dL (NEGATIVE) H 08/11/18 01:20 Urine Glucose (UA) >=1000 mg/dL (NEGATIVE) H 08/11/18 01:20 Urine Ketones NEGATIVE mg/dL (NEGATIVE) 08/11/18 01:20 Urine Blood NEGATIVE (NEGATIVE) 08/11/18 01:20 Urine Nitrate NEGATIVE (NEGATIVE) 08/11/18 01:20 Urine Bilirubin NEGATIVE (NEGATIVE) 08/11/18 01:20 Urine Urobilinogen 0.2 E.U./dL (0.2 - 1.0) 08/11/18 01:20 Ur Leukocyte Esterase NEGATIVE (NEGATIVE) 08/11/18 01:20 Urine RBC NONE SEEN /hpf (0-5) 08/11/18 01:20 Urine WBC 0-2 /hpf (0-5) 08/11/18 01:20 Ur Epithelial Cells OCCASIONAL /lpf (FEW) 08/11/18 01:20 Urine Bacteria OCCASIONAL /hpf (NONE SEEN) 08/11/18 01:20 Salicylates < 25.0 mg/L (30.0-100.0) L 08/10/18 14:16 Urine Opiates Screen POSITIVE (NEGATIVE) H 08/11/18 01:20 Urine Methadone Screen NEGATIVE (NEGATIVE) 08/11/18 01:20 Acetaminophen < 10.0 ug/mL (10.0-30.0) L 08/10/18 14:16 Ur Barbiturates Screen NEGATIVE (NEGATIVE) 08/11/18 01:20 Ur Tricyclics Screen NEGATIVE (NEGATIVE) 08/11/18 01:20 Ur Phencyclidine Scrn NEGATIVE (NEGATIVE) 08/11/18 01:20 Amphetamines Screen NEGATIVE (NEGATIVE) 08/11/18 01:20 U Methamphetamines Scrn NEGATIVE (NEGATIVE) 08/11/18 01:20 U Benzodiazepines Scrn POSITIVE (NEGATIVE) H 08/11/18 01:20 U Cocaine Metab Screen NEGATIVE (NEGATIVE) 08/11/18 01:20 U Cannabinoids Screen NEGATIVE (NEGATIVE) 08/11/18 01:20 Ethyl Alcohol < 10 mg/dL (0-10) 08/10/18 14:16 Serum Ketones NEGATIVE (NEGATIVE) 08/10/18 14:16 - Physical Exam Vitals and I&O: Vital Signs Temp 97.0 F 08/13/18 06:39 Pulse 79 08/13/18 09:38 Resp 18 08/13/18 11:06 BP 168/96 08/13/18 09:38 Pulse Ox 95 08/13/18 06:39 Intake & Output 08/12/18 08/13/18 08/13/18 18:59 06:59 18:59 Intake Total 100 1000 Balance 100 1000 Intake: Intake, IV Amount 100 1000 Piperacillin Sodium/ 100 Tazobact 3.375 gm In Sodium Chloride 0.9% 50 ml @ 100 mls/hr IV Q8HR [facility] Rx#:[id number] Sodium Chloride 0.9% 1, 1000 000 ml @ 150 mls/hr IV . Q6H40M [facility] Rx#:[id number] Active Medications: Current Medications Acetaminophen (Tylenol 650mg Supp) 650 mg RC Q4HR PRN PRN Reason: Pain (Mild) 1-3 Stop: 10/09/18 22:35 Last Admin: 08/13/18 05:11 Dose: 650 mg Acetaminophen/Hydrocodone Bitart (Mcfaddin 10 Mg/325 Mg) 1 tab PO [facility] Stop: 10/10/18 08:59 Last Admin: 08/13/18 09:37 Dose: 1 tab Atorvastatin Calcium (Lipitor) 40 mg PO DAILY [facility]; Protocol Stop: 10/10/18 08:59 Last Admin: 08/13/18 09:37 Dose: 40 mg Bisacodyl (Dulcolax 10 Mg Supp) 10 mg RC DAILY PRN PRN Reason: Constipation Stop: 10/09/18 22:35 Bupropion HCl (Wellbutrin Sr) 150 mg PO DAILY [facility]; Protocol Stop: 10/10/18 08:59 Last Admin: 08/13/18 09:37 Dose: 150 mg Carvedilol (Coreg) 3.125 mg PO Q12HR [facility] Stop: 10/09/18 22:59 Last Admin: 08/13/18 09:38 Dose: 3.125 mg Clopidogrel Bisulfate (Plavix) 75 mg PO DAILY [facility] Stop: 10/10/18 08:59 Last Admin: 08/13/18 09:37 Dose: 75 mg Gemfibrozil (Lopid) 600 mg PO BID [facility] Stop: 10/10/18 08:59 Last Admin: 08/13/18 09:37 Dose: 600 mg Glipizide (Glucotrol) 5 mg PO DAILY [facility] Stop: 10/10/18 08:59 Last Admin: 08/13/18 09:38 Dose: 5 mg Piperacillin Sod/Tazobactam (Sod 3.375 gm/ Sodium Chloride) 50 mls @ 100 mls/ hr IV Q8HR [facility] Stop: 10/09/18 20:59 Last Infusion: 08/13/18 06:00 Dose: Infused Sodium Chloride (Nacl 0.9%) 1,000 mls @ 150 mls/hr IV .Q6H40M [facility] Stop: 10/10/18 14:59 Last Admin: 08/13/18 09:40 Dose: 150 mls/hr Insulin Aspart (Novolog Insulin Sliding Scale) 0 units SUBQ ACHS [facility]; Protocol Stop: 10/09/18 20:59 Last Admin: 08/13/18 07:02 Dose: Not Given Insulin Detemir (Levemir Insulin) 10 units SUBQ BID [facility]; Protocol Stop: 10/10/18 08:59 Last Admin: 08/13/18 09:43 Dose: 10 units Lactulose (Cephulac) 20 gm PO BID [facility] Stop: 10/10/18 08:59 Last Admin: 08/13/18 09:40 Dose: Not Given Levothyroxine Sodium (Synthroid) 0.15 mg PO QDAC [facility] Stop: 10/12/18 07:29 Last Admin: 08/13/18 06:55 Dose: 0.15 mg Lorazepam (Ativan) 1 mg PO Q4HR PRN; Protocol PRN Reason: Agitation Stop: 10/11/18 11:29 Last Admin: 08/13/18 02:21 Dose: 1 mg General: Alert, No acute distress HEENT: Atraumatic, EOMI, Mucous membr. moist/pink Neck: Supple, +2 carotid pulse wo bruit Cardiovascular: Regular rate, Normal S1, Normal S2 Lungs: Clear to auscultation Abdomen: Bowel sounds, Soft Extremities: no Edema Neurological: Sensation intact Skin: no Rash Psych/Mental Status: Mood NL Assessment/Plan - Assessment Assessment: Pre renal azotemia Hyponatremia 2/2 Na loss Acute decomp of Psych Ess Htn T2DM Dyslipidemia Hypothyroid Depression Bipolar Disorder - Plan Plan: Lab - Result Diagrams 08/12/18 08:30 08/12/18 08:30 Current Medications Acetaminophen (Tylenol 650mg Supp) 650 mg RC Q4HR PRN PRN Reason: Pain (Mild) 1-3 Stop: 10/09/18 22:35 Acetaminophen/Hydrocodone Bitart (Mcfaddin 10 Mg/325 Mg) 1 tab PO [facility] Stop: 10/10/18 08:59 Last Admin: 08/12/18 09:47 Dose: 1 tab Atorvastatin Calcium (Lipitor) 40 mg PO DAILY [facility]; Protocol Stop: 10/10/18 08:59 Last Admin: 08/12/18 09:46 Dose: 40 mg Bisacodyl (Dulcolax 10 Mg Supp) 10 mg RC DAILY PRN PRN Reason: Constipation Stop: 10/09/18 22:35 Bupropion HCl (Wellbutrin Sr) 150 mg PO DAILY [facility]; Protocol Stop: 10/10/18 08:59 Last Admin: 08/12/18 09:47 Dose: 150 mg Carvedilol (Coreg) 3.125 mg PO Q12HR [facility] Stop: 10/09/18 22:59 Last Admin: 08/12/18 09:45 Dose: 3.125 mg Clopidogrel Bisulfate (Plavix) 75 mg PO DAILY [facility] Stop: 10/10/18 08:59 Last Admin: 08/12/18 09:46 Dose: 75 mg Gemfibrozil (Lopid) 600 mg PO BID [facility] Stop: 10/10/18 08:59 Last Admin: 08/12/18 09:46 Dose: 600 mg Glipizide (Glucotrol) 5 mg PO DAILY [facility] Stop: 10/10/18 08:59 Last Admin: 08/12/18 09:45 Dose: 5 mg Piperacillin Sod/Tazobactam (Sod 3.375 gm/ Sodium Chloride) 50 mls @ 100 mls/ hr IV Q8HR [facility] Stop: 10/09/18 20:59 Last Admin: 08/12/18 06:03 Dose: Not Given Sodium Chloride (Nacl 0.9%) 1,000 mls @ 150 mls/hr IV .Q6H40M [facility] Stop: 10/10/18 14:59 Last Admin: 08/11/18 17:34 Dose: 150 mls/hr Insulin Aspart (Novolog Insulin Sliding Scale) 0 units SUBQ ACHS [facility]; Protocol Stop: 10/09/18 20:59 Last Admin: 08/12/18 07:22 Dose: 3 units Insulin Aspart (Novolog) 4 units SUBQ TIDWM [facility]; Protocol Stop: 10/10/18 07:59 Last Admin: 08/12/18 10:44 Dose: Not Given Insulin Detemir (Levemir Insulin) 10 units SUBQ BID [facility]; Protocol Stop: 10/10/18 08:59 Lactulose (Cephulac) 20 gm PO BID [facility] Stop: 10/10/18 08:59 Last Admin: 08/12/18 10:07 Dose: Not Given Levothyroxine Sodium (Synthroid) 0.15 mg PO QDAC [facility] Stop: 10/12/18 07:29 Lorazepam (Ativan) 1 mg PO Q4HR PRN; Protocol PRN Reason: Agitation Stop: 10/11/18 11:29 Lab - Result Diagrams 08/12/18 08:30 08/12/18 08:30 Na stable @ 133 control BS continue Zosyn Nutritional Asmnt/Malnutr-PDOC - Dietary Evaluation Malnutrition Findings (Please click <Entered> for more info): Nutritional Asmnt/Malnutrition Start: 08/11/18 13: 15 Text: Status: Complete Freq: Protocol: Document 08/11/18 13:15 [email or web address] (Rec: 08/11/18 13:22 [email or web address]) Nutritional Asmnt/Malnutrition Patient General Information Nutritional Screening High Risk Diagnosis psychosis Pertinent Medical Hx/Surgical Hx HTN, DM, hyperlipidemia, thyroid disorder, depression, bipolar Subjective Information Pt was seen resting in bed at time of visit. Pt stated he was hungry. Pt ate double breakfast and is always hungry per RN. Glucose 494 at admission noted. Not able to provide diabetic education d/t pt mental status. Current Diet Order/ Nutrition Support CCHO 60gm, 2g NA Pertinent Medications lipitor, glucotrol, novolog, levemir, piperacillin, lactulose, synthroid, NaCl 0.9 % Pertinent Labs 08/11 Na 134, BUN 35, glucose 184, Ca 8.5, POC 186-492 08/10 glucose 494, POC 419-492 Nutritional Hx/Data Height 1.8 m Height (Calculated Centimeters) 180.3 Current Weight (lbs) 81.647 kg Weight (Calculated Kilograms) 81.6 Weight (Calculated Grams) 08069.6 [place] Body Weight 172 Body Mass Index (BMI) 25.1 Weight Status Overweight GI Symptoms GI Symptoms None Last BM not indicated Difficult in: None Food Allergies No Skin Integrity/Comment: skin tear to right upper arm and right knee, abrasion to right first toe saul 15 Current %PO Good (75-100%) Estimated Nutritional Goals BEE in Kcals: Using Current wt Calories/Kcals/Kg 23-27 Kcals Calculated 9233-3230 Protein: Using Current wt Protein g/k.8-1 Protein Calculated 65-81 Fluid: ml 9979-2813 (1ml/kcal) Nutritional Problem 1. Problem Problem altered nutrition related labs Etiology hyperglycemia, electrolyte/ fluid imbalance Signs/Symptoms: Na 134, BUN 35, glucose 184, Ca 8.5, POC 186-492 Malnutrition Alert Is there a minimum of two criteria No selected? Query Text:Check all the applicable criteria. A minimum of two criteria are recommended for diagnosis of either severe or non-severe malnutrition. Malnutrition Related to Morbid Obesity Malnutrition related to morbid obesity No Intervention/Recommendation Comments 1. Continue with CCHO 60gm, 2g NA diet as ordered. MD to adjust insulin for optinal glycemic control. 2. MD to monitor glucose, fluid, and electrolytes 2. Monitor PO intake, wt, labs and skin integrity 3. F/U as moderate risk in 3-5 days Expected Outcomes/Goals Expected Outcomes/Goals Goal: PO intake to meet at least 75% of nutritional needs and improved labs. Reviewed by Vicky Trimble RD
--- NOTE | 2018-08-13 13:34 | General Progress Note ---
Objective - Results Result Diagrams: 08/12/18 08:30 08/12/18 08:30 Recent Labs: Laboratory Last Values WBC 11.2 Th/cmm (4.8-10.8) H 08/12/18 08:30 RBC 4.09 Mil/cmm (4.30-5.70) L 08/12/18 08:30 Hgb 12.3 gm/dL (12-16) 08/12/18 08:30 Hct 37.5 % (41.0-60) L 08/12/18 08:30 MCV 91.5 fl (80-99) 08/12/18 08:30 MCH 30.0 pg (26.0-30.0) 08/12/18 08:30 MCHC Differential 32.8 pg (28.0-36.0) 08/12/18 08:30 RDW 12.7 % (11.5-20.0) 08/12/18 08:30 Plt Count 505 Th/cmm (150-400) H 08/12/18 08:30 MPV 7.0 fl 08/12/18 08:30 Neutrophils % 76.0 % (40.0-80.0) 08/12/18 08:30 Lymphocytes % 15.4 % (20.0-50.0) L 08/12/18 08:30 Monocytes % 6.3 % (2.0-10.0) 08/12/18 08:30 Eosinophils % 1.6 % (0.0-5.0) 08/12/18 08:30 Basophils % 0.7 % (0.0-2.0) 08/12/18 08:30 Sodium 133 mEq/L (136-145) L 08/12/18 08:30 Potassium 3.7 mEq/L (3.5-5.1) 08/12/18 08:30 Chloride 104 mEq/L (98-107) 08/12/18 08:30 Carbon Dioxide 22.8 mEq/L (21.0-31.0) 08/12/18 08:30 Anion Gap 9.9 (7.0-16.0) 08/12/18 08:30 BUN 22 mg/dL (7-25) 08/12/18 08:30 Creatinine 1.2 mg/dL (0.7-1.3) 08/12/18 08:30 Est GFR ( Amer) > 60.0 ml/min (>90) 08/12/18 08:30 Est GFR (Non-Af Amer) > 60.0 ml/min 08/12/18 08:30 BUN/Creatinine Ratio 18.3 08/12/18 08:30 Glucose 202 mg/dL (70-105) H 08/12/18 08:30 POC Glucose 166 MG/DL (70 - 105) H 08/13/18 11:26 Uric Acid 2.9 mg/dL (4.4-7.6) L 08/12/18 08:30 Calcium 8.5 mg/dL (8.6-10.3) L 08/12/18 08:30 Phosphorus 2.5 mg/dL (2.5-5.0) 08/12/18 08:30 Magnesium 1.9 mg/dL (1.9-2.7) 08/13/18 05:16 Total Bilirubin 0.2 mg/dL (0.3-1.0) L 08/10/18 14:16 AST 7 U/L (13-39) L 08/10/18 14:16 ALT 8 U/L (7-52) 08/10/18 14:16 Alkaline Phosphatase 83 U/L (34-104) 08/10/18 14:16 Troponin I 0.01 ng/mL (0.01-0.05) 08/10/18 14:16 Total Protein 6.1 gm/dL (6.0-8.3) 08/10/18 14:16 Albumin 3.2 gm/dL (4.2-5.5) L 08/10/18 14:16 Globulin 2.9 gm/dL 08/10/18 14:16 Albumin/Globulin Ratio 1.1 (1.0-1.8) 08/10/18 14:16 Triglycerides 322 mg/dL (<150) H 08/10/18 14:16 Cholesterol 134 mg/dL (<200) 08/10/18 14:16 LDL Cholesterol Direct 52 mg/dL (75-193) L 08/10/18 14:16 HDL Cholesterol 38 mg/dL (23-92) 08/10/18 14:16 Amylase 31 U/L (29-103) 08/10/18 14:16 Lipase 38 U/L (11-82) 08/10/18 14:16 Free T4 0.48 ng/dL (0.82-1.77) L 08/10/18 14:16 Free T3 1.1 pg/mL (2.0-4.4) L 08/10/18 14:16 TSH 198.01 uIU/ml (0.34-5.60) H 08/11/18 05:50 Urine Source CLEAN C 08/11/18 01:20 Urine Color YELLOW 08/11/18 01:20 Urine Clarity CLEAR (CLEAR) 08/11/18 01:20 Urine pH 5.5 (4.6 - 8.0) 08/11/18 01:20 Ur Specific [place] 1.025 (1.005-1.030) 08/11/18 01:20 Urine Protein 100 mg/dL (NEGATIVE) H 08/11/18 01:20 Urine Glucose (UA) >=1000 mg/dL (NEGATIVE) H 08/11/18 01:20 Urine Ketones NEGATIVE mg/dL (NEGATIVE) 08/11/18 01:20 Urine Blood NEGATIVE (NEGATIVE) 08/11/18 01:20 Urine Nitrate NEGATIVE (NEGATIVE) 08/11/18 01:20 Urine Bilirubin NEGATIVE (NEGATIVE) 08/11/18 01:20 Urine Urobilinogen 0.2 E.U./dL (0.2 - 1.0) 08/11/18 01:20 Ur Leukocyte Esterase NEGATIVE (NEGATIVE) 08/11/18 01:20 Urine RBC NONE SEEN /hpf (0-5) 08/11/18 01:20 Urine WBC 0-2 /hpf (0-5) 08/11/18 01:20 Ur Epithelial Cells OCCASIONAL /lpf (FEW) 08/11/18 01:20 Urine Bacteria OCCASIONAL /hpf (NONE SEEN) 08/11/18 01:20 Ur Random Sodium 106 mmol/L 08/13/18 11:30 Salicylates < 25.0 mg/L (30.0-100.0) L 08/10/18 14:16 Urine Opiates Screen POSITIVE (NEGATIVE) H 08/11/18 01:20 Urine Methadone Screen NEGATIVE (NEGATIVE) 08/11/18 01:20 Acetaminophen < 10.0 ug/mL (10.0-30.0) L 08/10/18 14:16 Ur Barbiturates Screen NEGATIVE (NEGATIVE) 08/11/18 01:20 Ur Tricyclics Screen NEGATIVE (NEGATIVE) 08/11/18 01:20 Ur Phencyclidine Scrn NEGATIVE (NEGATIVE) 08/11/18 01:20 Amphetamines Screen NEGATIVE (NEGATIVE) 08/11/18 01:20 U Methamphetamines Scrn NEGATIVE (NEGATIVE) 08/11/18 01:20 U Benzodiazepines Scrn POSITIVE (NEGATIVE) H 08/11/18 01:20 U Cocaine Metab Screen NEGATIVE (NEGATIVE) 08/11/18 01:20 U Cannabinoids Screen NEGATIVE (NEGATIVE) 08/11/18 01:20 Ethyl Alcohol < 10 mg/dL (0-10) 08/10/18 14:16 Serum Ketones NEGATIVE (NEGATIVE) 08/10/18 14:16 - Physical Exam Vitals and I&O: Vital Signs Temp 97.0 F 08/13/18 06:39 Pulse 79 08/13/18 09:38 Resp 18 08/13/18 11:06 BP 168/96 08/13/18 09:38 Pulse Ox 95 08/13/18 06:39 Intake & Output 08/12/18 08/13/18 08/13/18 18:59 06:59 18:59 Intake Total 100 1000 Balance 100 1000 Intake: Intake, IV Amount 100 1000 Piperacillin Sodium/ 100 Tazobact 3.375 gm In Sodium Chloride 0.9% 50 ml @ 100 mls/hr IV Q8HR [facility] Rx#:[id number] Sodium Chloride 0.9% 1, 1000 000 ml @ 150 mls/hr IV . Q6H40M [facility] Rx#:[id number] Active Medications: Current Medications Acetaminophen (Tylenol 650mg Supp) 650 mg RC Q4HR PRN PRN Reason: Pain (Mild) 1-3 Stop: 10/09/18 22:35 Last Admin: 08/13/18 05:11 Dose: 650 mg Acetaminophen/Hydrocodone Bitart ([place] 10 Mg/325 Mg) 1 tab PO [facility] Stop: 10/10/18 08:59 Last Admin: 08/13/18 12:03 Dose: 1 tab Atorvastatin Calcium (Lipitor) 40 mg PO DAILY [facility]; Protocol Stop: 10/10/18 08:59 Last Admin: 08/13/18 09:37 Dose: 40 mg Bisacodyl (Dulcolax 10 Mg Supp) 10 mg RC DAILY PRN PRN Reason: Constipation Stop: 10/09/18 22:35 Bupropion HCl (Wellbutrin Sr) 150 mg PO DAILY [facility]; Protocol Stop: 10/10/18 08:59 Last Admin: 08/13/18 09:37 Dose: 150 mg Carvedilol (Coreg) 3.125 mg PO Q12HR [facility] Stop: 10/09/18 22:59 Last Admin: 08/13/18 09:38 Dose: 3.125 mg Clopidogrel Bisulfate (Plavix) 75 mg PO DAILY [facility] Stop: 10/10/18 08:59 Last Admin: 08/13/18 09:37 Dose: 75 mg Gemfibrozil (Lopid) 600 mg PO BID [facility] Stop: 10/10/18 08:59 Last Admin: 08/13/18 09:37 Dose: 600 mg Glipizide (Glucotrol) 5 mg PO DAILY [facility] Stop: 10/10/18 08:59 Last Admin: 08/13/18 09:38 Dose: 5 mg Piperacillin Sod/Tazobactam (Sod 3.375 gm/ Sodium Chloride) 50 mls @ 100 mls/ hr IV Q8HR [facility] Stop: 10/09/18 20:59 Last Admin: 08/13/18 12:02 Dose: 100 mls/hr Sodium Chloride (Nacl 0.9%) 1,000 mls @ 150 mls/hr IV .Q6H40M [facility] Stop: 10/10/18 14:59 Last Admin: 08/13/18 09:40 Dose: 150 mls/hr Insulin Aspart (Novolog Insulin Sliding Scale) 0 units SUBQ ACHS [facility]; Protocol Stop: 10/09/18 20:59 Last Admin: 08/13/18 12:22 Dose: 3 units Insulin Detemir (Levemir Insulin) 10 units SUBQ BID [facility]; Protocol Stop: 10/10/18 08:59 Last Admin: 08/13/18 09:43 Dose: 10 units Lactulose (Cephulac) 20 gm PO BID [facility] Stop: 10/10/18 08:59 Last Admin: 08/13/18 09:40 Dose: Not Given Levothyroxine Sodium (Synthroid) 0.15 mg PO QDAC [facility] Stop: 10/12/18 07:29 Last Admin: 08/13/18 06:55 Dose: 0.15 mg Lorazepam (Ativan) 1 mg PO Q4HR PRN; Protocol PRN Reason: Agitation Stop: 10/11/18 11:29 Last Admin: 08/13/18 02:21 Dose: 1 mg General: Alert, No acute distress HEENT: Atraumatic, EOMI, Mucous membr. moist/pink Neck: Supple, +2 carotid pulse wo bruit Cardiovascular: Regular rate, Normal S1, Normal S2 Lungs: Clear to auscultation Abdomen: Bowel sounds, Soft Extremities: no Edema Neurological: Sensation intact Skin: no Rash Psych/Mental Status: Mood NL Assessment/Plan - Assessment Assessment: severe hyperglycemia hyponatremia leukocytosis hypothyrodism dm uncontrolled anemia - Plan Plan: as per order sheet Nutritional Asmnt/Malnutr-PDOC - Dietary Evaluation Malnutrition Findings (Please click <Entered> for more info): Nutritional Asmnt/Malnutrition Start: 08/11/18 13: 15 Text: Status: Complete Freq: Protocol: Document 08/11/18 13:15 [email or web address] (Rec: 08/11/18 13:22 [email or web address]) Nutritional Asmnt/Malnutrition Patient General Information Nutritional Screening High Risk Diagnosis psychosis Pertinent Medical Hx/Surgical Hx HTN, DM, hyperlipidemia, thyroid disorder, depression, bipolar Subjective Information Pt was seen resting in bed at time of visit. Pt stated he was hungry. Pt ate double breakfast and is always hungry per RN. Glucose 494 at admission noted. Not able to provide diabetic education d/t pt mental status. Current Diet Order/ Nutrition Support CCHO 60gm, 2g NA Pertinent Medications lipitor, glucotrol, novolog, levemir, piperacillin, lactulose, synthroid, NaCl 0.9 % Pertinent Labs 08/11 Na 134, BUN 35, glucose 184, Ca 8.5, POC 186-492 08/10 glucose 494, POC 419-492 Nutritional Hx/Data Height 1.8 m Height (Calculated Centimeters) 180.3 Current Weight (lbs) 81.647 kg Weight (Calculated Kilograms) 81.6 Weight (Calculated Grams) 57535.6 [place] Body Weight 172 Body Mass Index (BMI) 25.1 Weight Status Overweight GI Symptoms GI Symptoms None Last BM not indicated Difficult in: None Food Allergies No Skin Integrity/Comment: skin tear to right upper arm and right knee, abrasion to right first toe saul 15 Current %PO Good (75-100%) Estimated Nutritional Goals BEE in Kcals: Using Current wt Calories/Kcals/Kg 23-27 Kcals Calculated 5992-8509 Protein: Using Current wt Protein g/k.8-1 Protein Calculated 65-81 Fluid: ml 5222-2761 (1ml/kcal) Nutritional Problem 1. Problem Problem altered nutrition related labs Etiology hyperglycemia, electrolyte/ fluid imbalance Signs/Symptoms: Na 134, BUN 35, glucose 184, Ca 8.5, POC 186-492 Malnutrition Alert Is there a minimum of two criteria No selected? Query Text:Check all the applicable criteria. A minimum of two criteria are recommended for diagnosis of either severe or non-severe malnutrition. Malnutrition Related to Morbid Obesity Malnutrition related to morbid obesity No Intervention/Recommendation Comments 1. Continue with CCHO 60gm, 2g NA diet as ordered. MD to adjust insulin for optinal glycemic control. 2. MD to monitor glucose, fluid, and electrolytes 2. Monitor PO intake, wt, labs and skin integrity 3. F/U as moderate risk in 3-5 days Expected Outcomes/Goals Expected Outcomes/Goals Goal: PO intake to meet at least 75% of nutritional needs and improved labs. Reviewed by Vicky Trimble RD
--- NOTE | 2018-08-14 01:18 | Progress Notes ---
DATE: 08/13/2018 Case was discussed with staff of the patient, reviewed records. Also talked with Dr. Zambrano regarding his care. The patient has been seeing ____. Continues to be unpredictable, impulsive, and unable to make safe plan for self-care. Continues to have poor insight. The patient is confused, unable to make safe plan for self-care or participate in a meaningful conversation, but today he was able to talk about seeing things. He needed help with his ADLs. I will be initiating on him Abilify small dose because of his agitation and psychotic symptoms. Discussed side effects. We will continue outpatient group therapy and the patient needs to go to [facility] when medically cleared. Thank you very much for allowing me to participate in the care of this most interesting gentleman. JOB# [id number]
[2018-08-14] MEDS: INSULIN ASPART SLIDING SCALE 100 UNITS/ML UNIT SUBQ SCH ×4 (09:12→20:43)
[2018-08-14] MEDS: Insulin Detemir 100 units/mL 10mL Vial SUBQ SCH ×2 (09:12→17:12)
[2018-08-14] MEDS: Lactulose 10 Gm/15 mL 30mL UDC PO SCH ×2 (09:13→17:18)
[2018-08-14] MEDS: Hydrocodone/APAP 10 mg/325 mg Tab PO SCH ×3 (09:16→20:40)
[2018-08-14] MEDS: Levothyroxine 0.075 Mg Tab PO SCH (09:17)
[2018-08-14] MEDS: Sodium Chloride 0.9% 1,000 ML IV SCH (13:31)
--- NOTE | 2018-08-14 14:51 | General Progress Note ---
Subjective - Review of Systems Service Date: 08/14/18 Subjective: sleeping, comfortable, still confused Objective - Results Result Diagrams: 08/12/18 08:30 08/12/18 08:30 Recent Labs: Laboratory Last Values WBC 11.2 Th/cmm (4.8-10.8) H 08/12/18 08:30 RBC 4.09 Mil/cmm (4.30-5.70) L 08/12/18 08:30 Hgb 12.3 gm/dL (12-16) 08/12/18 08:30 Hct 37.5 % (41.0-60) L 08/12/18 08:30 MCV 91.5 fl (80-99) 08/12/18 08:30 MCH 30.0 pg (26.0-30.0) 08/12/18 08:30 MCHC Differential 32.8 pg (28.0-36.0) 08/12/18 08:30 RDW 12.7 % (11.5-20.0) 08/12/18 08:30 Plt Count 505 Th/cmm (150-400) H 08/12/18 08:30 MPV 7.0 fl 08/12/18 08:30 Neutrophils % 76.0 % (40.0-80.0) 08/12/18 08:30 Lymphocytes % 15.4 % (20.0-50.0) L 08/12/18 08:30 Monocytes % 6.3 % (2.0-10.0) 08/12/18 08:30 Eosinophils % 1.6 % (0.0-5.0) 08/12/18 08:30 Basophils % 0.7 % (0.0-2.0) 08/12/18 08:30 Sodium 133 mEq/L (136-145) L 08/12/18 08:30 Potassium 3.7 mEq/L (3.5-5.1) 08/12/18 08:30 Chloride 104 mEq/L (98-107) 08/12/18 08:30 Carbon Dioxide 22.8 mEq/L (21.0-31.0) 08/12/18 08:30 Anion Gap 9.9 (7.0-16.0) 08/12/18 08:30 BUN 22 mg/dL (7-25) 08/12/18 08:30 Creatinine 1.2 mg/dL (0.7-1.3) 08/12/18 08:30 Est GFR ( Amer) > 60.0 ml/min (>90) 08/12/18 08:30 Est GFR (Non-Af Amer) > 60.0 ml/min 08/12/18 08:30 BUN/Creatinine Ratio 18.3 08/12/18 08:30 Glucose 202 mg/dL (70-105) H 08/12/18 08:30 POC Glucose 335 MG/DL (70 - 105) H 08/14/18 13:17 Uric Acid 2.9 mg/dL (4.4-7.6) L 08/12/18 08:30 Calcium 8.5 mg/dL (8.6-10.3) L 08/12/18 08:30 Phosphorus 2.5 mg/dL (2.5-5.0) 08/12/18 08:30 Magnesium 1.9 mg/dL (1.9-2.7) 08/13/18 05:16 Total Bilirubin 0.2 mg/dL (0.3-1.0) L 08/10/18 14:16 AST 7 U/L (13-39) L 08/10/18 14:16 ALT 8 U/L (7-52) 08/10/18 14:16 Alkaline Phosphatase 83 U/L (34-104) 08/10/18 14:16 Troponin I 0.01 ng/mL (0.01-0.05) 08/10/18 14:16 Total Protein 6.1 gm/dL (6.0-8.3) 08/10/18 14:16 Albumin 3.2 gm/dL (4.2-5.5) L 08/10/18 14:16 Globulin 2.9 gm/dL 08/10/18 14:16 Albumin/Globulin Ratio 1.1 (1.0-1.8) 08/10/18 14:16 Triglycerides 322 mg/dL (<150) H 08/10/18 14:16 Cholesterol 134 mg/dL (<200) 08/10/18 14:16 LDL Cholesterol Direct 52 mg/dL (75-193) L 08/10/18 14:16 HDL Cholesterol 38 mg/dL (23-92) 08/10/18 14:16 Amylase 31 U/L (29-103) 08/10/18 14:16 Lipase 38 U/L (11-82) 08/10/18 14:16 Free T4 0.48 ng/dL (0.82-1.77) L 08/10/18 14:16 Free T3 1.1 pg/mL (2.0-4.4) L 08/10/18 14:16 TSH 198.01 uIU/ml (0.34-5.60) H 08/11/18 05:50 Urine Source CLEAN C 08/11/18 01:20 Urine Color YELLOW 08/11/18 01:20 Urine Clarity CLEAR (CLEAR) 08/11/18 01:20 Urine pH 5.5 (4.6 - 8.0) 08/11/18 01:20 Ur Specific [place] 1.025 (1.005-1.030) 08/11/18 01:20 Urine Protein 100 mg/dL (NEGATIVE) H 08/11/18 01:20 Urine Glucose (UA) >=1000 mg/dL (NEGATIVE) H 08/11/18 01:20 Urine Ketones NEGATIVE mg/dL (NEGATIVE) 08/11/18 01:20 Urine Blood NEGATIVE (NEGATIVE) 08/11/18 01:20 Urine Nitrate NEGATIVE (NEGATIVE) 08/11/18 01:20 Urine Bilirubin NEGATIVE (NEGATIVE) 08/11/18 01:20 Urine Urobilinogen 0.2 E.U./dL (0.2 - 1.0) 08/11/18 01:20 Ur Leukocyte Esterase NEGATIVE (NEGATIVE) 08/11/18 01:20 Urine RBC NONE SEEN /hpf (0-5) 08/11/18 01:20 Urine WBC 0-2 /hpf (0-5) 08/11/18 01:20 Ur Epithelial Cells OCCASIONAL /lpf (FEW) 08/11/18 01:20 Urine Bacteria OCCASIONAL /hpf (NONE SEEN) 08/11/18 01:20 Ur Random Sodium 106 mmol/L 08/13/18 11:30 Salicylates < 25.0 mg/L (30.0-100.0) L 08/10/18 14:16 Urine Opiates Screen POSITIVE (NEGATIVE) H 08/11/18 01:20 Urine Methadone Screen NEGATIVE (NEGATIVE) 08/11/18 01:20 Acetaminophen < 10.0 ug/mL (10.0-30.0) L 08/10/18 14:16 Ur Barbiturates Screen NEGATIVE (NEGATIVE) 08/11/18 01:20 Ur Tricyclics Screen NEGATIVE (NEGATIVE) 08/11/18 01:20 Ur Phencyclidine Scrn NEGATIVE (NEGATIVE) 08/11/18 01:20 Amphetamines Screen NEGATIVE (NEGATIVE) 08/11/18 01:20 U Methamphetamines Scrn NEGATIVE (NEGATIVE) 08/11/18 01:20 U Benzodiazepines Scrn POSITIVE (NEGATIVE) H 08/11/18 01:20 U Cocaine Metab Screen NEGATIVE (NEGATIVE) 08/11/18 01:20 U Cannabinoids Screen NEGATIVE (NEGATIVE) 08/11/18 01:20 Ethyl Alcohol < 10 mg/dL (0-10) 08/10/18 14:16 Serum Ketones NEGATIVE (NEGATIVE) 08/10/18 14:16 - Physical Exam Vitals and I&O: Vital Signs Temp 98.1 F 08/14/18 13:18 Pulse 81 08/14/18 13:18 Resp 18 08/14/18 13:18 BP 149/91 08/14/18 13:18 Pulse Ox 97 08/14/18 13:18 Intake & Output 08/13/18 08/14/18 08/14/18 18:59 06:59 18:59 Intake Total 2049 1099 Balance 2049 1099 Intake: Intake, IV Amount 2049 1099 Piperacillin Sodium/ 50 100 Tazobact 3.375 gm In Sodium Chloride 0.9% 50 ml @ 100 mls/hr IV Q8HR [facility] Rx#:[id number] Sodium Chloride 0.9% 1999 1000 000 ml @ 150 mls/hr IV . Q6H40M [facility] Rx#:[id number] Active Medications: Current Medications Acetaminophen (Tylenol 650mg Supp) 650 mg RC Q4HR PRN PRN Reason: Pain (Mild) 1-3 Stop: 10/09/18 22:35 Last Admin: 08/13/18 05:11 Dose: 650 mg Acetaminophen/Hydrocodone Bitart ([place] 10 Mg/325 Mg) 1 tab PO [facility] Stop: 10/10/18 08:59 Last Admin: 08/14/18 09:16 Dose: 1 tab Aripiprazole (Abilify) 2.5 mg PO DAILY [facility]; Protocol Stop: 10/13/18 08:59 Last Admin: 08/14/18 09:16 Dose: 2.5 mg Atorvastatin Calcium (Lipitor) 40 mg PO DAILY [facility]; Protocol Stop: 10/10/18 08:59 Last Admin: 08/14/18 09:19 Dose: Not Given Bisacodyl (Dulcolax 10 Mg Supp) 10 mg RC DAILY PRN PRN Reason: Constipation Stop: 10/09/18 22:35 Bupropion HCl (Wellbutrin Sr) 150 mg PO DAILY [facility]; Protocol Stop: 10/10/18 08:59 Last Admin: 08/14/18 09:16 Dose: 150 mg Carvedilol (Coreg) 3.125 mg PO Q12HR [facility] Stop: 10/09/18 22:59 Last Admin: 08/14/18 09:18 Dose: Not Given Clopidogrel Bisulfate (Plavix) 75 mg PO DAILY [facility] Stop: 10/10/18 08:59 Last Admin: 08/14/18 09:16 Dose: 75 mg Gemfibrozil (Lopid) 600 mg PO BID [facility] Stop: 10/10/18 08:59 Last Admin: 08/14/18 09:18 Dose: Not Given Glipizide (Glucotrol) 5 mg PO DAILY [facility] Stop: 10/10/18 08:59 Last Admin: 08/14/18 09:18 Dose: Not Given Piperacillin Sod/Tazobactam (Sod 3.375 gm/ Sodium Chloride) 50 mls @ 100 mls/ hr IV Q8HR [facility] Stop: 10/09/18 20:59 Last Admin: 08/14/18 13:27 Dose: 100 mls/hr Sodium Chloride (Nacl 0.9%) 1,000 mls @ 150 mls/hr IV .Q6H40M [facility] Stop: 10/10/18 14:59 Last Admin: 08/14/18 13:31 Dose: 150 mls/hr Insulin Aspart (Novolog Insulin Sliding Scale) 0 units SUBQ ACHS [facility]; Protocol Stop: 10/09/18 20:59 Last Admin: 08/14/18 13:24 Dose: 9 units Insulin Detemir (Levemir Insulin) 10 units SUBQ BID [facility]; Protocol Stop: 10/10/18 08:59 Last Admin: 08/14/18 09:12 Dose: Not Given Lactulose (Cephulac) 20 gm PO BID [facility] Stop: 10/10/18 08:59 Last Admin: 08/14/18 09:13 Dose: Not Given Levothyroxine Sodium (Synthroid) 0.15 mg PO QDAC [facility] Stop: 10/12/18 07:29 Last Admin: 08/14/18 09:17 Dose: Not Given Lorazepam (Ativan) 1 mg PO Q4HR PRN; Protocol PRN Reason: Agitation Stop: 10/11/18 11:29 Last Admin: 08/13/18 19:51 Dose: 1 mg General: Alert, No acute distress HEENT: Atraumatic, EOMI, Mucous membr. moist/pink Neck: Supple, +2 carotid pulse wo bruit Cardiovascular: Regular rate, Normal S1, Normal S2 Lungs: Clear to auscultation Abdomen: Bowel sounds, Soft Extremities: no Edema Neurological: Sensation intact Skin: no Rash Psych/Mental Status: Mood NL Assessment/Plan - Assessment Assessment: Pre renal azotemia Hyponatremia 2/2 Na loss Acute decomp of Psych Ess Htn T2DM Dyslipidemia Hypothyroid Depression Bipolar Disorder - Plan Plan: Lab - Result Diagrams 08/12/18 08:30 08/12/18 08:30 Current Medications Acetaminophen (Tylenol 650mg Supp) 650 mg RC Q4HR PRN PRN Reason: Pain (Mild) 1-3 Stop: 10/09/18 22:35 Acetaminophen/Hydrocodone Bitart ([place] 10 Mg/325 Mg) 1 tab PO [facility] Stop: 10/10/18 08:59 Last Admin: 08/12/18 09:47 Dose: 1 tab Atorvastatin Calcium (Lipitor) 40 mg PO DAILY [facility]; Protocol Stop: 10/10/18 08:59 Last Admin: 08/12/18 09:46 Dose: 40 mg Bisacodyl (Dulcolax 10 Mg Supp) 10 mg RC DAILY PRN PRN Reason: Constipation Stop: 10/09/18 22:35 Bupropion HCl (Wellbutrin Sr) 150 mg PO DAILY [facility]; Protocol Stop: 10/10/18 08:59 Last Admin: 08/12/18 09:47 Dose: 150 mg Carvedilol (Coreg) 3.125 mg PO Q12HR [facility] Stop: 10/09/18 22:59 Last Admin: 08/12/18 09:45 Dose: 3.125 mg Clopidogrel Bisulfate (Plavix) 75 mg PO DAILY [facility] Stop: 10/10/18 08:59 Last Admin: 08/12/18 09:46 Dose: 75 mg Gemfibrozil (Lopid) 600 mg PO BID [facility] Stop: 10/10/18 08:59 Last Admin: 08/12/18 09:46 Dose: 600 mg Glipizide (Glucotrol) 5 mg PO DAILY [facility] Stop: 10/10/18 08:59 Last Admin: 08/12/18 09:45 Dose: 5 mg Piperacillin Sod/Tazobactam (Sod 3.375 gm/ Sodium Chloride) 50 mls @ 100 mls/ hr IV Q8HR [facility] Stop: 10/09/18 20:59 Last Admin: 08/12/18 06:03 Dose: Not Given Sodium Chloride (Nacl 0.9%) 1,000 mls @ 150 mls/hr IV .Q6H40M [facility] Stop: 10/10/18 14:59 Last Admin: 08/11/18 17:34 Dose: 150 mls/hr Insulin Aspart (Novolog Insulin Sliding Scale) 0 units SUBQ ACHS [facility]; Protocol Stop: 10/09/18 20:59 Last Admin: 08/12/18 07:22 Dose: 3 units Insulin Aspart (Novolog) 4 units SUBQ TIDWM [facility]; Protocol Stop: 10/10/18 07:59 Last Admin: 08/12/18 10:44 Dose: Not Given Insulin Detemir (Levemir Insulin) 10 units SUBQ BID [facility]; Protocol Stop: 10/10/18 08:59 Lactulose (Cephulac) 20 gm PO BID [facility] Stop: 10/10/18 08:59 Last Admin: 08/12/18 10:07 Dose: Not Given Levothyroxine Sodium (Synthroid) 0.15 mg PO QDAC [facility] Stop: 10/12/18 07:29 Lorazepam (Ativan) 1 mg PO Q4HR PRN; Protocol PRN Reason: Agitation Stop: 10/11/18 11:29 Lab - Result Diagrams 08/12/18 08:30 08/12/18 08:30 Na stable @ 133 control BS continue Zosyn possible transfer to [facility] Nutritional Asmnt/Malnutr-PDOC - Dietary Evaluation Malnutrition Findings (Please click <Entered> for more info): Nutritional Asmnt/Malnutrition Start: 08/11/18 13: 15 Text: Status: Complete Freq: Protocol: Document 08/11/18 13:15 [email or web address] (Rec: 08/11/18 13:22 [email or web address]) Nutritional Asmnt/Malnutrition Patient General Information Nutritional Screening High Risk Diagnosis psychosis Pertinent Medical Hx/Surgical Hx HTN, DM, hyperlipidemia, thyroid disorder, depression, bipolar Subjective Information Pt was seen resting in bed at time of visit. Pt stated he was hungry. Pt ate double breakfast and is always hungry per RN. Glucose 494 at admission noted. Not able to provide diabetic education d/t pt mental status. Current Diet Order/ Nutrition Support CCHO 60gm, 2g NA Pertinent Medications lipitor, glucotrol, novolog, levemir, piperacillin, lactulose, synthroid, NaCl 0.9 % Pertinent Labs 08/11 Na 134, BUN 35, glucose 184, Ca 8.5, POC 186-492 08/10 glucose 494, POC 419-492 Nutritional Hx/Data Height 1.8 m Height (Calculated Centimeters) 180.3 Current Weight (lbs) 81.647 kg Weight (Calculated Kilograms) 81.6 Weight (Calculated Grams) 27879.6 [place] Body Weight 172 Body Mass Index (BMI) 25.1 Weight Status Overweight GI Symptoms GI Symptoms None Last BM not indicated Difficult in: None Food Allergies No Skin Integrity/Comment: skin tear to right upper arm and right knee, abrasion to right first toe saul 15 Current %PO Good (75-100%) Estimated Nutritional Goals BEE in Kcals: Using Current wt Calories/Kcals/Kg 23-27 Kcals Calculated 7873-0382 Protein: Using Current wt Protein g/k.8-1 Protein Calculated 65-81 Fluid: ml 4667-1916 (1ml/kcal) Nutritional Problem 1. Problem Problem altered nutrition related labs Etiology hyperglycemia, electrolyte/ fluid imbalance Signs/Symptoms: Na 134, BUN 35, glucose 184, Ca 8.5, POC 186-492 Malnutrition Alert Is there a minimum of two criteria No selected? Query Text:Check all the applicable criteria. A minimum of two criteria are recommended for diagnosis of either severe or non-severe malnutrition. Malnutrition Related to Morbid Obesity Malnutrition related to morbid obesity No Intervention/Recommendation Comments 1. Continue with CCHO 60gm, 2g NA diet as ordered. MD to adjust insulin for optinal glycemic control. 2. MD to monitor glucose, fluid, and electrolytes 2. Monitor PO intake, wt, labs and skin integrity 3. F/U as moderate risk in 3-5 days Expected Outcomes/Goals Expected Outcomes/Goals Goal: PO intake to meet at least 75% of nutritional needs and improved labs. Reviewed by Vicky Trimble RD
--- NOTE | 2018-08-14 19:56 | General Progress Note ---
Objective - Results Result Diagrams: 08/12/18 08:30 08/12/18 08:30 Recent Labs: Laboratory Last Values WBC 11.2 Th/cmm (4.8-10.8) H 08/12/18 08:30 RBC 4.09 Mil/cmm (4.30-5.70) L 08/12/18 08:30 Hgb 12.3 gm/dL (12-16) 08/12/18 08:30 Hct 37.5 % (41.0-60) L 08/12/18 08:30 MCV 91.5 fl (80-99) 08/12/18 08:30 MCH 30.0 pg (26.0-30.0) 08/12/18 08:30 MCHC Differential 32.8 pg (28.0-36.0) 08/12/18 08:30 RDW 12.7 % (11.5-20.0) 08/12/18 08:30 Plt Count 505 Th/cmm (150-400) H 08/12/18 08:30 MPV 7.0 fl 08/12/18 08:30 Neutrophils % 76.0 % (40.0-80.0) 08/12/18 08:30 Lymphocytes % 15.4 % (20.0-50.0) L 08/12/18 08:30 Monocytes % 6.3 % (2.0-10.0) 08/12/18 08:30 Eosinophils % 1.6 % (0.0-5.0) 08/12/18 08:30 Basophils % 0.7 % (0.0-2.0) 08/12/18 08:30 Sodium 133 mEq/L (136-145) L 08/12/18 08:30 Potassium 3.7 mEq/L (3.5-5.1) 08/12/18 08:30 Chloride 104 mEq/L (98-107) 08/12/18 08:30 Carbon Dioxide 22.8 mEq/L (21.0-31.0) 08/12/18 08:30 Anion Gap 9.9 (7.0-16.0) 08/12/18 08:30 BUN 22 mg/dL (7-25) 08/12/18 08:30 Creatinine 1.2 mg/dL (0.7-1.3) 08/12/18 08:30 Est GFR ( Amer) > 60.0 ml/min (>90) 08/12/18 08:30 Est GFR (Non-Af Amer) > 60.0 ml/min 08/12/18 08:30 BUN/Creatinine Ratio 18.3 08/12/18 08:30 Glucose 202 mg/dL (70-105) H 08/12/18 08:30 POC Glucose 237 MG/DL (70 - 105) H 08/14/18 17:01 Uric Acid 2.9 mg/dL (4.4-7.6) L 08/12/18 08:30 Calcium 8.5 mg/dL (8.6-10.3) L 08/12/18 08:30 Phosphorus 2.5 mg/dL (2.5-5.0) 08/12/18 08:30 Magnesium 1.9 mg/dL (1.9-2.7) 08/13/18 05:16 Total Bilirubin 0.2 mg/dL (0.3-1.0) L 08/10/18 14:16 AST 7 U/L (13-39) L 08/10/18 14:16 ALT 8 U/L (7-52) 08/10/18 14:16 Alkaline Phosphatase 83 U/L (34-104) 08/10/18 14:16 Troponin I 0.01 ng/mL (0.01-0.05) 08/10/18 14:16 Total Protein 6.1 gm/dL (6.0-8.3) 08/10/18 14:16 Albumin 3.2 gm/dL (4.2-5.5) L 08/10/18 14:16 Globulin 2.9 gm/dL 08/10/18 14:16 Albumin/Globulin Ratio 1.1 (1.0-1.8) 08/10/18 14:16 Triglycerides 322 mg/dL (<150) H 08/10/18 14:16 Cholesterol 134 mg/dL (<200) 08/10/18 14:16 LDL Cholesterol Direct 52 mg/dL (75-193) L 08/10/18 14:16 HDL Cholesterol 38 mg/dL (23-92) 08/10/18 14:16 Amylase 31 U/L (29-103) 08/10/18 14:16 Lipase 38 U/L (11-82) 08/10/18 14:16 Free T4 0.48 ng/dL (0.82-1.77) L 08/10/18 14:16 Free T3 1.1 pg/mL (2.0-4.4) L 08/10/18 14:16 TSH 198.01 uIU/ml (0.34-5.60) H 08/11/18 05:50 Urine Source CLEAN C 08/11/18 01:20 Urine Color YELLOW 08/11/18 01:20 Urine Clarity CLEAR (CLEAR) 08/11/18 01:20 Urine pH 5.5 (4.6 - 8.0) 08/11/18 01:20 Ur Specific [place] 1.025 (1.005-1.030) 08/11/18 01:20 Urine Protein 100 mg/dL (NEGATIVE) H 08/11/18 01:20 Urine Glucose (UA) >=1000 mg/dL (NEGATIVE) H 08/11/18 01:20 Urine Ketones NEGATIVE mg/dL (NEGATIVE) 08/11/18 01:20 Urine Blood NEGATIVE (NEGATIVE) 08/11/18 01:20 Urine Nitrate NEGATIVE (NEGATIVE) 08/11/18 01:20 Urine Bilirubin NEGATIVE (NEGATIVE) 08/11/18 01:20 Urine Urobilinogen 0.2 E.U./dL (0.2 - 1.0) 08/11/18 01:20 Ur Leukocyte Esterase NEGATIVE (NEGATIVE) 08/11/18 01:20 Urine RBC NONE SEEN /hpf (0-5) 08/11/18 01:20 Urine WBC 0-2 /hpf (0-5) 08/11/18 01:20 Ur Epithelial Cells OCCASIONAL /lpf (FEW) 08/11/18 01:20 Urine Bacteria OCCASIONAL /hpf (NONE SEEN) 08/11/18 01:20 Ur Random Sodium 106 mmol/L 08/13/18 11:30 Salicylates < 25.0 mg/L (30.0-100.0) L 08/10/18 14:16 Urine Opiates Screen POSITIVE (NEGATIVE) H 08/11/18 01:20 Urine Methadone Screen NEGATIVE (NEGATIVE) 08/11/18 01:20 Acetaminophen < 10.0 ug/mL (10.0-30.0) L 08/10/18 14:16 Ur Barbiturates Screen NEGATIVE (NEGATIVE) 08/11/18 01:20 Ur Tricyclics Screen NEGATIVE (NEGATIVE) 08/11/18 01:20 Ur Phencyclidine Scrn NEGATIVE (NEGATIVE) 08/11/18 01:20 Amphetamines Screen NEGATIVE (NEGATIVE) 08/11/18 01:20 U Methamphetamines Scrn NEGATIVE (NEGATIVE) 08/11/18 01:20 U Benzodiazepines Scrn POSITIVE (NEGATIVE) H 08/11/18 01:20 U Cocaine Metab Screen NEGATIVE (NEGATIVE) 08/11/18 01:20 U Cannabinoids Screen NEGATIVE (NEGATIVE) 08/11/18 01:20 Ethyl Alcohol < 10 mg/dL (0-10) 08/10/18 14:16 Serum Ketones NEGATIVE (NEGATIVE) 08/10/18 14:16 - Physical Exam Vitals and I&O: Vital Signs Temp 97.6 F 08/14/18 16:19 Pulse 76 08/14/18 16:19 Resp 18 08/14/18 16:19 BP 146/97 08/14/18 16:19 Pulse Ox 96 08/14/18 16:19 Intake & Output 08/14/18 08/14/18 08/15/18 06:59 18:59 06:59 Intake Total 1100 950 Balance 1100 950 Weight (lbs) 81.647 kg Intake: Intake, IV Amount 1100 Piperacillin Sodium/ 100 Tazobact 3.375 gm In Sodium Chloride 0.9% 50 ml @ 100 mls/hr IV Q8HR [facility] Rx#:[id number] Sodium Chloride 0.9% 1, 1000 000 ml @ 150 mls/hr IV . Q6H40M [facility] Rx#:[id number] Oral 950 Other: # Voids 3 # Bowel Movements 0 Weight Source Bedscale Active Medications: Current Medications Acetaminophen (Tylenol 650mg Supp) 650 mg RC Q4HR PRN PRN Reason: Pain (Mild) 1-3 Stop: 10/09/18 22:35 Last Admin: 08/13/18 05:11 Dose: 650 mg Acetaminophen/Hydrocodone Bitart ([place] 10 Mg/325 Mg) [address] [facility] Stop: 10/10/18 08:59 Last Admin: 08/14/18 16:13 Dose: 1 tab Aripiprazole (Abilify) 2.5 mg PO DAILY [facility]; Protocol Stop: 10/13/18 08:59 Last Admin: 08/14/18 09:16 Dose: 2.5 mg Atorvastatin Calcium (Lipitor) 40 mg PO DAILY [facility]; Protocol Stop: 10/10/18 08:59 Last Admin: 08/14/18 09:19 Dose: Not Given Bisacodyl (Dulcolax 10 Mg Supp) 10 mg RC DAILY PRN PRN Reason: Constipation Stop: 10/09/18 22:35 Bupropion HCl (Wellbutrin Sr) 150 mg PO DAILY [facility]; Protocol Stop: 10/10/18 08:59 Last Admin: 08/14/18 09:16 Dose: 150 mg Carvedilol (Coreg) 3.125 mg PO Q12HR [facility] Stop: 10/09/18 22:59 Last Admin: 08/14/18 09:18 Dose: Not Given Clopidogrel Bisulfate (Plavix) 75 mg PO DAILY [facility] Stop: 10/10/18 08:59 Last Admin: 08/14/18 09:16 Dose: 75 mg Gemfibrozil (Lopid) 600 mg PO BID [facility] Stop: 10/10/18 08:59 Last Admin: 08/14/18 17:17 Dose: Not Given Glipizide (Glucotrol) 5 mg PO DAILY [facility] Stop: 10/10/18 08:59 Last Admin: 08/14/18 09:18 Dose: Not Given Piperacillin Sod/Tazobactam (Sod 3.375 gm/ Sodium Chloride) 50 mls @ 100 mls/ hr IV Q8HR [facility] Stop: 10/09/18 20:59 Last Admin: 08/14/18 13:27 Dose: 100 mls/hr Sodium Chloride (Nacl 0.9%) 1,000 mls @ 150 mls/hr IV .Q6H40M [facility] Stop: 10/10/18 14:59 Last Admin: 08/14/18 13:31 Dose: 150 mls/hr Insulin Aspart (Novolog Insulin Sliding Scale) 0 units SUBQ ACHS [facility]; Protocol Stop: 10/09/18 20:59 Last Admin: 08/14/18 17:02 Dose: 5 units Insulin Detemir (Levemir Insulin) 10 units SUBQ BID [facility]; Protocol Stop: 10/10/18 08:59 Last Admin: 08/14/18 17:12 Dose: 10 units Lactulose (Cephulac) 20 gm PO BID [facility] Stop: 10/10/18 08:59 Last Admin: 08/14/18 17:18 Dose: Not Given Levothyroxine Sodium (Synthroid) 0.15 mg PO QDAC [facility] Stop: 10/12/18 07:29 Last Admin: 08/14/18 09:17 Dose: Not Given Lorazepam (Ativan) 1 mg PO Q4HR PRN; Protocol PRN Reason: Agitation Stop: 10/11/18 11:29 Last Admin: 08/13/18 19:51 Dose: 1 mg General: Alert, No acute distress HEENT: Atraumatic, EOMI, Mucous membr. moist/pink Neck: Supple, +2 carotid pulse wo bruit Cardiovascular: Regular rate, Normal S1, Normal S2 Lungs: Clear to auscultation Abdomen: Bowel sounds, Soft Extremities: no Edema Neurological: Sensation intact Skin: no Rash Psych/Mental Status: Mood NL Assessment/Plan - Assessment Assessment: severe hyperglycemia hyponatremia leukocytosis hypothyrodism dm uncontrolled anemia - Plan Plan: as per order sheet Nutritional Asmnt/Malnutr-PDOC - Dietary Evaluation Malnutrition Findings (Please click <Entered> for more info): Nutritional Asmnt/Malnutrition Start: 08/11/18 13: 15 Text: Status: Complete Freq: Protocol: Document 08/11/18 13:15 [email or web address] (Rec: 08/11/18 13:22 [email or web address]) Nutritional Asmnt/Malnutrition Patient General Information Nutritional Screening High Risk Diagnosis psychosis Pertinent Medical Hx/Surgical Hx HTN, DM, hyperlipidemia, thyroid disorder, depression, bipolar Subjective Information Pt was seen resting in bed at time of visit. Pt stated he was hungry. Pt ate double breakfast and is always hungry per RN. Glucose 494 at admission noted. Not able to provide diabetic education d/t pt mental status. Current Diet Order/ Nutrition Support CCHO 60gm, 2g NA Pertinent Medications lipitor, glucotrol, novolog, levemir, piperacillin, lactulose, synthroid, NaCl 0.9 % Pertinent Labs 08/11 Na 134, BUN 35, glucose 184, Ca 8.5, POC 186-492 08/10 glucose 494, POC 419-492 Nutritional Hx/Data Height 1.8 m Height (Calculated Centimeters) 180.3 Current Weight (lbs) 81.647 kg Weight (Calculated Kilograms) 81.6 Weight (Calculated Grams) 97529.6 [place] Body Weight 172 Body Mass Index (BMI) 25.1 Weight Status Overweight GI Symptoms GI Symptoms None Last BM not indicated Difficult in: None Food Allergies No Skin Integrity/Comment: skin tear to right upper arm and right knee, abrasion to right first toe saul 15 Current %PO Good (75-100%) Estimated Nutritional Goals BEE in Kcals: Using Current wt Calories/Kcals/Kg 23-27 Kcals Calculated 5825-0474 Protein: Using Current wt Protein g/k.8-1 Protein Calculated 65-81 Fluid: ml 4384-4228 (1ml/kcal) Nutritional Problem 1. Problem Problem altered nutrition related labs Etiology hyperglycemia, electrolyte/ fluid imbalance Signs/Symptoms: Na 134, BUN 35, glucose 184, Ca 8.5, POC 186-492 Malnutrition Alert Is there a minimum of two criteria No selected? Query Text:Check all the applicable criteria. A minimum of two criteria are recommended for diagnosis of either severe or non-severe malnutrition. Malnutrition Related to Morbid Obesity Malnutrition related to morbid obesity No Intervention/Recommendation Comments 1. [facility], 2g NA diet as ordered. MD to adjust insulin for optinal glycemic control. 2. MD to monitor glucose, fluid, and electrolytes 2. Monitor PO intake, wt, labs and skin integrity 3. F/U as moderate risk in 3-5 days Expected Outcomes/Goals Expected Outcomes/Goals Goal: PO intake to meet at least 75% of nutritional needs and improved labs. Reviewed by Vicky Trimble RD
--- NOTE | 2018-08-14 21:50 | Progress Notes ---
DATE: 08/14/2018 FOLLOWUP CONSULT NOTE SUBJECTIVE: Case was discussed with staff of the patient, reviewed records. The patient continues to have poor insight, confused, unable to participate in meaningful conversation or make safe plan for self-care. He is unpredictable, impulsive, and needing redirection. He continues to be internally preoccupied. I initiated him on Abilify yesterday with no side effects, no sedation, no nausea, and no extrapyramidal symptoms. The patient can go to [facility] when medically cleared. Thank you very much for allowing me to participate in the care of this most interesting gentleman. JOB# [id number]
--- NOTE | 2018-08-14 22:46 | Infectious Disease Prog Note ---
Infectious Disease Subjective - Review of Systems Service Date: 08/14/18 Subjective: There is no new change. no fever. Infectious Disease Objective - Results Result Diagrams: 08/12/18 08:30 08/12/18 08:30 Recent Labs: Laboratory Last Values WBC 11.2 Th/cmm (4.8-10.8) H 08/12/18 08:30 RBC 4.09 Mil/cmm (4.30-5.70) L 08/12/18 08:30 Hgb 12.3 gm/dL (12-16) 08/12/18 08:30 Hct 37.5 % (41.0-60) L 08/12/18 08:30 MCV 91.5 fl (80-99) 08/12/18 08:30 MCH 30.0 pg (26.0-30.0) 08/12/18 08:30 MCHC Differential 32.8 pg (28.0-36.0) 08/12/18 08:30 RDW 12.7 % (11.5-20.0) 08/12/18 08:30 Plt Count 505 Th/cmm (150-400) H 08/12/18 08:30 MPV 7.0 fl 08/12/18 08:30 Neutrophils % 76.0 % (40.0-80.0) 08/12/18 08:30 Lymphocytes % 15.4 % (20.0-50.0) L 08/12/18 08:30 Monocytes % 6.3 % (2.0-10.0) 08/12/18 08:30 Eosinophils % 1.6 % (0.0-5.0) 08/12/18 08:30 Basophils % 0.7 % (0.0-2.0) 08/12/18 08:30 Sodium 133 mEq/L (136-145) L 08/12/18 08:30 Potassium 3.7 mEq/L (3.5-5.1) 08/12/18 08:30 Chloride 104 mEq/L (98-107) 08/12/18 08:30 Carbon Dioxide 22.8 mEq/L (21.0-31.0) 08/12/18 08:30 Anion Gap 9.9 (7.0-16.0) 08/12/18 08:30 BUN 22 mg/dL (7-25) 08/12/18 08:30 Creatinine 1.2 mg/dL (0.7-1.3) 08/12/18 08:30 Est GFR ( Amer) > 60.0 ml/min (>90) 08/12/18 08:30 Est GFR (Non-Af Amer) > 60.0 ml/min 08/12/18 08:30 BUN/Creatinine Ratio 18.3 08/12/18 08:30 Glucose 202 mg/dL (70-105) H 08/12/18 08:30 POC Glucose 246 MG/DL (70 - 105) H 08/14/18 20:39 Uric Acid 2.9 mg/dL (4.4-7.6) L 08/12/18 08:30 Calcium 8.5 mg/dL (8.6-10.3) L 08/12/18 08:30 Phosphorus 2.5 mg/dL (2.5-5.0) 08/12/18 08:30 Magnesium 1.9 mg/dL (1.9-2.7) 08/13/18 05:16 Total Bilirubin 0.2 mg/dL (0.3-1.0) L 08/10/18 14:16 AST 7 U/L (13-39) L 08/10/18 14:16 ALT 8 U/L (7-52) 08/10/18 14:16 Alkaline Phosphatase 83 U/L (34-104) 08/10/18 14:16 Troponin I 0.01 ng/mL (0.01-0.05) 08/10/18 14:16 Total Protein 6.1 gm/dL (6.0-8.3) 08/10/18 14:16 Albumin 3.2 gm/dL (4.2-5.5) L 08/10/18 14:16 Globulin 2.9 gm/dL 08/10/18 14:16 Albumin/Globulin Ratio 1.1 (1.0-1.8) 08/10/18 14:16 Triglycerides 322 mg/dL (<150) H 08/10/18 14:16 Cholesterol 134 mg/dL (<200) 08/10/18 14:16 LDL Cholesterol Direct 52 mg/dL (75-193) L 08/10/18 14:16 HDL Cholesterol 38 mg/dL (23-92) 08/10/18 14:16 Amylase 31 U/L (29-103) 08/10/18 14:16 Lipase 38 U/L (11-82) 08/10/18 14:16 Free T4 0.48 ng/dL (0.82-1.77) L 08/10/18 14:16 Free T3 1.1 pg/mL (2.0-4.4) L 08/10/18 14:16 TSH 198.01 uIU/ml (0.34-5.60) H 08/11/18 05:50 Urine Source CLEAN C 08/11/18 01:20 Urine Color YELLOW 08/11/18 01:20 Urine Clarity CLEAR (CLEAR) 08/11/18 01:20 Urine pH 5.5 (4.6 - 8.0) 08/11/18 01:20 Ur Specific [place] 1.025 (1.005-1.030) 08/11/18 01:20 Urine Protein 100 mg/dL (NEGATIVE) H 08/11/18 01:20 Urine Glucose (UA) >=1000 mg/dL (NEGATIVE) H 08/11/18 01:20 Urine Ketones NEGATIVE mg/dL (NEGATIVE) 08/11/18 01:20 Urine Blood NEGATIVE (NEGATIVE) 08/11/18 01:20 Urine Nitrate NEGATIVE (NEGATIVE) 08/11/18 01:20 Urine Bilirubin NEGATIVE (NEGATIVE) 08/11/18 01:20 Urine Urobilinogen 0.2 E.U./dL (0.2 - 1.0) 08/11/18 01:20 Ur Leukocyte Esterase NEGATIVE (NEGATIVE) 08/11/18 01:20 Urine RBC NONE SEEN /hpf (0-5) 08/11/18 01:20 Urine WBC 0-2 /hpf (0-5) 08/11/18 01:20 Ur Epithelial Cells OCCASIONAL /lpf (FEW) 08/11/18 01:20 Urine Bacteria OCCASIONAL /hpf (NONE SEEN) 08/11/18 01:20 Ur Random Sodium 106 mmol/L 08/13/18 11:30 Salicylates < 25.0 mg/L (30.0-100.0) L 08/10/18 14:16 Urine Opiates Screen POSITIVE (NEGATIVE) H 08/11/18 01:20 Urine Methadone Screen NEGATIVE (NEGATIVE) 08/11/18 01:20 Acetaminophen < 10.0 ug/mL (10.0-30.0) L 08/10/18 14:16 Ur Barbiturates Screen NEGATIVE (NEGATIVE) 08/11/18 01:20 Ur Tricyclics Screen NEGATIVE (NEGATIVE) 08/11/18 01:20 Ur Phencyclidine Scrn NEGATIVE (NEGATIVE) 08/11/18 01:20 Amphetamines Screen NEGATIVE (NEGATIVE) 08/11/18 01:20 U Methamphetamines Scrn NEGATIVE (NEGATIVE) 08/11/18 01:20 U Benzodiazepines Scrn POSITIVE (NEGATIVE) H 08/11/18 01:20 U Cocaine Metab Screen NEGATIVE (NEGATIVE) 08/11/18 01:20 U Cannabinoids Screen NEGATIVE (NEGATIVE) 08/11/18 01:20 Ethyl Alcohol < 10 mg/dL (0-10) 08/10/18 14:16 Serum Ketones NEGATIVE (NEGATIVE) 08/10/18 14:16 RPR NONREACTIVE (NONREACTIVE) 08/10/18 14:16 - Physical Exam Vitals and I&O: Vital Signs Temp 97.6 F 08/14/18 16:19 Pulse 79 08/14/18 20:41 Resp 18 08/14/18 16:19 BP 151/81 08/14/18 20:41 Pulse Ox 96 08/14/18 16:19 Intake & Output 08/14/18 08/14/18 08/15/18 06:59 18:59 06:59 Intake Total 1100 1000 Balance 1100 1000 Weight (lbs) 81.647 kg Intake: Intake, IV Amount 1100 50 Piperacillin Sodium/ 100 50 Tazobact 3.375 gm In Sodium Chloride 0.9% 50 ml @ 100 mls/hr IV Q8HR [facility] Rx#:[id number] Sodium Chloride 0.9% 1, 1000 000 ml @ 150 mls/hr IV . Q6H40M [facility] Rx#:[id number] Oral 950 Other: # Voids 3 # Bowel Movements 0 Weight Source Bedscale Active Medications: Current Medications Acetaminophen (Tylenol 650mg Supp) 650 mg RC Q4HR PRN PRN Reason: Pain (Mild) 1-3 Stop: 10/09/18 22:35 Last Admin: 08/13/18 05:11 Dose: 650 mg Acetaminophen/Hydrocodone Bitart ([place] 10 Mg/325 Mg) 1 tab PO [facility] Stop: 10/10/18 08:59 Last Admin: 08/14/18 20:40 Dose: 1 tab Aripiprazole (Abilify) 2.5 mg PO DAILY [facility]; Protocol Stop: 10/13/18 08:59 Last Admin: 08/14/18 09:16 Dose: 2.5 mg Atorvastatin Calcium (Lipitor) 40 mg PO DAILY [facility]; Protocol Stop: 10/10/18 08:59 Last Admin: 08/14/18 09:19 Dose: Not Given Bisacodyl (Dulcolax 10 Mg Supp) 10 mg RC DAILY PRN PRN Reason: Constipation Stop: 10/09/18 22:35 Bupropion HCl (Wellbutrin Sr) 150 mg PO DAILY [facility]; Protocol Stop: 10/10/18 08:59 Last Admin: 08/14/18 09:16 Dose: 150 mg Carvedilol (Coreg) 3.125 mg PO Q12HR [facility] Stop: 10/09/18 22:59 Last Admin: 08/14/18 20:41 Dose: 3.125 mg Clopidogrel Bisulfate (Plavix) 75 mg PO DAILY [facility] Stop: 10/10/18 08:59 Last Admin: 08/14/18 09:16 Dose: 75 mg Gemfibrozil (Lopid) 600 mg PO BID [facility] Stop: 10/10/18 08:59 Last Admin: 08/14/18 17:17 Dose: Not Given Glipizide (Glucotrol) 5 mg PO DAILY [facility] Stop: 10/10/18 08:59 Last Admin: 08/14/18 09:18 Dose: Not Given Piperacillin Sod/Tazobactam (Sod 3.375 gm/ Sodium Chloride) 50 mls @ 100 mls/ hr IV Q8HR [facility] Stop: 10/09/18 20:59 Last Admin: 08/14/18 21:47 Dose: Not Given Sodium Chloride (Nacl 0.9%) 1,000 mls @ 150 mls/hr IV .Q6H40M [facility] Stop: 10/10/18 14:59 Last Admin: 08/14/18 13:31 Dose: 150 mls/hr Insulin Aspart (Novolog Insulin Sliding Scale) 0 units SUBQ ACHS [facility]; Protocol Stop: 10/09/18 20:59 Last Admin: 08/14/18 20:43 Dose: 5 units Insulin Detemir (Levemir Insulin) 10 units SUBQ BID [facility]; Protocol Stop: 10/10/18 08:59 Last Admin: 08/14/18 17:12 Dose: 10 units Lactulose (Cephulac) 20 gm PO BID [facility] Stop: 10/10/18 08:59 Last Admin: 08/14/18 17:18 Dose: Not Given Levothyroxine Sodium (Synthroid) 0.15 mg PO QDAC [facility] Stop: 10/12/18 07:29 Last Admin: 08/14/18 09:17 Dose: Not Given Lorazepam (Ativan) 1 mg PO Q4HR PRN; Protocol PRN Reason: Agitation Stop: 10/11/18 11:29 Last Admin: 08/13/18 19:51 Dose: 1 mg General: no acute distress, well developed, well nourished HEENT: atraumatic, normocephalic, PERRLA Neck: supple, no thyromegaly, no lymphadenopathy Cardiovascular: S1S2, regular Lungs: clear to auscultation bilaterally, clear to percussion Abdomen: soft, no tender, no distended Extremities: no cyanosis, no clubbing, no edema Neurological: awake, alert, oriented Skin: intact Infectious Disease Assmt/Plan - Assessment Assessment: 1. Aspiration pneumonia. - Plan Plan: Continue Zosyn. Nutritional Asmnt/Malnutr-PDOC - Dietary Evaluation Malnutrition Findings (Please click <Entered> for more info): Nutritional Asmnt/Malnutrition Start: 08/11/18 13: 15 Text: Status: Complete Freq: Protocol: Document 08/11/18 13:15 [email or web address] (Rec: 08/11/18 13:22 [email or web address]) Nutritional Asmnt/Malnutrition Patient General Information Nutritional Screening High Risk Diagnosis psychosis Pertinent Medical Hx/Surgical Hx HTN, DM, hyperlipidemia, thyroid disorder, depression, bipolar Subjective Information Pt was seen resting in bed at time of visit. Pt stated he was hungry. Pt ate double breakfast and is always hungry per RN. Glucose 494 at admission noted. Not able to provide diabetic education d/t pt mental status. Current Diet Order/ Nutrition Support CCHO 60gm, 2g NA Pertinent Medications lipitor, glucotrol, novolog, levemir, piperacillin, lactulose, synthroid, NaCl 0.9 % Pertinent Labs 08/11 Na 134, BUN 35, glucose 184, Ca 8.5, POC 186-492 08/10 glucose 494, POC 419-492 Nutritional Hx/Data Height 1.8 m Height (Calculated Centimeters) 180.3 Current Weight (lbs) 81.647 kg Weight (Calculated Kilograms) 81.6 Weight (Calculated Grams) 66709.6 [place] Body Weight 172 Body Mass Index (BMI) 25.1 Weight Status Overweight GI Symptoms GI Symptoms None Last BM not indicated Difficult in: None Food Allergies No Skin Integrity/Comment: skin tear to right upper arm and right knee, abrasion to right first toe saul 15 Current %PO Good (75-100%) Estimated Nutritional Goals BEE in Kcals: Using Current wt Calories/Kcals/Kg 23-27 Kcals Calculated 2220-2383 Protein: Using Current wt Protein g/k.8-1 Protein Calculated 65-81 Fluid: ml 0502-9720 (1ml/kcal) Nutritional Problem 1. Problem Problem altered nutrition related labs Etiology hyperglycemia, electrolyte/ fluid imbalance Signs/Symptoms: Na 134, BUN 35, glucose 184, Ca 8.5, POC 186-492 Malnutrition Alert Is there a minimum of two criteria No selected? Query Text:Check all the applicable criteria. A minimum of two criteria are recommended for diagnosis of either severe or non-severe malnutrition. Malnutrition Related to Morbid Obesity Malnutrition related to morbid obesity No Intervention/Recommendation Comments 1. Continue with CCHO 60gm, 2g NA diet as ordered. MD to adjust insulin for optinal glycemic control. 2. MD to monitor glucose, fluid, and electrolytes 2. Monitor PO intake, wt, labs and skin integrity 3. F/U as moderate risk in 3-5 days Expected Outcomes/Goals Expected Outcomes/Goals Goal: PO intake to meet at least 75% of nutritional needs and improved labs. Reviewed by Vicky Trimble RD
[2018-08-15] MEDS: Levothyroxine 0.075 Mg Tab PO SCH (09:58)
[2018-08-15] MEDS: Hydrocodone/APAP 10 mg/325 mg Tab PO SCH ×3 (09:58→13:23)
[2018-08-15] MEDS: Lactulose 10 Gm/15 mL 30mL UDC PO SCH (10:00)
[2018-08-15] MEDS: INSULIN ASPART SLIDING SCALE 100 UNITS/ML UNIT SUBQ SCH ×2 (10:08→12:52)
[2018-08-15] MEDS: Insulin Detemir 100 units/mL 10mL Vial SUBQ SCH ×2 (10:12→10:13)
--- NOTE | 2018-08-15 13:19 | General Progress Note ---
Subjective - Review of Systems Service Date: 08/15/18 Subjective: sleeping, comfortable, still confused Objective - Results Result Diagrams: 08/12/18 08:30 08/12/18 08:30 Recent Labs: Laboratory Last Values WBC 11.2 Th/cmm (4.8-10.8) H 08/12/18 08:30 RBC 4.09 Mil/cmm (4.30-5.70) L 08/12/18 08:30 Hgb 12.3 gm/dL (12-16) 08/12/18 08:30 Hct 37.5 % (41.0-60) L 08/12/18 08:30 MCV 91.5 fl (80-99) 08/12/18 08:30 MCH 30.0 pg (26.0-30.0) 08/12/18 08:30 MCHC Differential 32.8 pg (28.0-36.0) 08/12/18 08:30 RDW 12.7 % (11.5-20.0) 08/12/18 08:30 Plt Count 505 Th/cmm (150-400) H 08/12/18 08:30 MPV 7.0 fl 08/12/18 08:30 Neutrophils % 76.0 % (40.0-80.0) 08/12/18 08:30 Lymphocytes % 15.4 % (20.0-50.0) L 08/12/18 08:30 Monocytes % 6.3 % (2.0-10.0) 08/12/18 08:30 Eosinophils % 1.6 % (0.0-5.0) 08/12/18 08:30 Basophils % 0.7 % (0.0-2.0) 08/12/18 08:30 Sodium 133 mEq/L (136-145) L 08/12/18 08:30 Potassium 3.7 mEq/L (3.5-5.1) 08/12/18 08:30 Chloride 104 mEq/L (98-107) 08/12/18 08:30 Carbon Dioxide 22.8 mEq/L (21.0-31.0) 08/12/18 08:30 Anion Gap 9.9 (7.0-16.0) 08/12/18 08:30 BUN 22 mg/dL (7-25) 08/12/18 08:30 Creatinine 1.2 mg/dL (0.7-1.3) 08/12/18 08:30 Est GFR ( Amer) > 60.0 ml/min (>90) 08/12/18 08:30 Est GFR (Non-Af Amer) > 60.0 ml/min 08/12/18 08:30 BUN/Creatinine Ratio 18.3 08/12/18 08:30 Glucose 202 mg/dL (70-105) H 08/12/18 08:30 POC Glucose 179 MG/DL (70 - 105) H 08/15/18 12:49 Uric Acid 2.9 mg/dL (4.4-7.6) L 08/12/18 08:30 Calcium 8.5 mg/dL (8.6-10.3) L 08/12/18 08:30 Phosphorus 2.5 mg/dL (2.5-5.0) 08/12/18 08:30 Magnesium 1.9 mg/dL (1.9-2.7) 08/13/18 05:16 Total Bilirubin 0.2 mg/dL (0.3-1.0) L 08/10/18 14:16 AST 7 U/L (13-39) L 08/10/18 14:16 ALT 8 U/L (7-52) 08/10/18 14:16 Alkaline Phosphatase 83 U/L (34-104) 08/10/18 14:16 Troponin I 0.01 ng/mL (0.01-0.05) 08/10/18 14:16 Total Protein 6.1 gm/dL (6.0-8.3) 08/10/18 14:16 Albumin 3.2 gm/dL (4.2-5.5) L 08/10/18 14:16 Globulin 2.9 gm/dL 08/10/18 14:16 Albumin/Globulin Ratio 1.1 (1.0-1.8) 08/10/18 14:16 Triglycerides 322 mg/dL (<150) H 08/10/18 14:16 Cholesterol 134 mg/dL (<200) 08/10/18 14:16 LDL Cholesterol Direct 52 mg/dL (75-193) L 08/10/18 14:16 HDL Cholesterol 38 mg/dL (23-92) 08/10/18 14:16 Amylase 31 U/L (29-103) 08/10/18 14:16 Lipase 38 U/L (11-82) 08/10/18 14:16 Free T4 0.48 ng/dL (0.82-1.77) L 08/10/18 14:16 Free T3 1.1 pg/mL (2.0-4.4) L 08/10/18 14:16 TSH 198.01 uIU/ml (0.34-5.60) H 08/11/18 05:50 Urine Source CLEAN C 08/11/18 01:20 Urine Color YELLOW 08/11/18 01:20 Urine Clarity CLEAR (CLEAR) 08/11/18 01:20 Urine pH 5.5 (4.6 - 8.0) 08/11/18 01:20 Ur Specific [place] 1.025 (1.005-1.030) 08/11/18 01:20 Urine Protein 100 mg/dL (NEGATIVE) H 08/11/18 01:20 Urine Glucose (UA) >=1000 mg/dL (NEGATIVE) H 08/11/18 01:20 Urine Ketones NEGATIVE mg/dL (NEGATIVE) 08/11/18 01:20 Urine Blood NEGATIVE (NEGATIVE) 08/11/18 01:20 Urine Nitrate NEGATIVE (NEGATIVE) 08/11/18 01:20 Urine Bilirubin NEGATIVE (NEGATIVE) 08/11/18 01:20 Urine Urobilinogen 0.2 E.U./dL (0.2 - 1.0) 08/11/18 01:20 Ur Leukocyte Esterase NEGATIVE (NEGATIVE) 08/11/18 01:20 Urine RBC NONE SEEN /hpf (0-5) 08/11/18 01:20 Urine WBC 0-2 /hpf (0-5) 08/11/18 01:20 Ur Epithelial Cells OCCASIONAL /lpf (FEW) 08/11/18 01:20 Urine Bacteria OCCASIONAL /hpf (NONE SEEN) 08/11/18 01:20 Ur Random Sodium 106 mmol/L 08/13/18 11:30 Salicylates < 25.0 mg/L (30.0-100.0) L 08/10/18 14:16 Urine Opiates Screen POSITIVE (NEGATIVE) H 08/11/18 01:20 Urine Methadone Screen NEGATIVE (NEGATIVE) 08/11/18 01:20 Acetaminophen < 10.0 ug/mL (10.0-30.0) L 08/10/18 14:16 Ur Barbiturates Screen NEGATIVE (NEGATIVE) 08/11/18 01:20 Ur Tricyclics Screen NEGATIVE (NEGATIVE) 08/11/18 01:20 Ur Phencyclidine Scrn NEGATIVE (NEGATIVE) 08/11/18 01:20 Amphetamines Screen NEGATIVE (NEGATIVE) 08/11/18 01:20 U Methamphetamines Scrn NEGATIVE (NEGATIVE) 08/11/18 01:20 U Benzodiazepines Scrn POSITIVE (NEGATIVE) H 08/11/18 01:20 U Cocaine Metab Screen NEGATIVE (NEGATIVE) 08/11/18 01:20 U Cannabinoids Screen NEGATIVE (NEGATIVE) 08/11/18 01:20 Ethyl Alcohol < 10 mg/dL (0-10) 08/10/18 14:16 Serum Ketones NEGATIVE (NEGATIVE) 08/10/18 14:16 RPR NONREACTIVE (NONREACTIVE) 08/10/18 14:16 - Physical Exam Vitals and I&O: Vital Signs Temp 98.8 F 08/15/18 00:00 Pulse 86 08/15/18 09:53 Resp 18 08/15/18 03:39 BP 146/88 08/15/18 09:53 Pulse Ox 98 08/15/18 00:00 Intake & Output 08/14/18 08/15/18 08/15/18 18:59 06:59 18:59 Intake Total 1000 Balance 1000 Weight (lbs) 81.647 kg Intake: Intake, IV Amount 50 Piperacillin Sodium/ 50 Tazobact 3.375 gm In Sodium Chloride 0.9% 50 ml @ 100 mls/hr IV Q8HR [facility] Rx#:[id number] Oral 950 Other: # Voids 3 # Bowel Movements 0 Weight Source Bedscale Active Medications: Current Medications Acetaminophen (Tylenol 650mg Supp) 650 mg RC Q4HR PRN PRN Reason: Pain (Mild) 1-3 Stop: 10/09/18 22:35 Last Admin: 08/13/18 05:11 Dose: 650 mg Acetaminophen/Hydrocodone Bitart ([place] 10 Mg/325 Mg) 1 tab PO [facility] Stop: 10/10/18 08:59 Last Admin: 08/15/18 09:59 Dose: 1 tab Aripiprazole (Abilify) 2.5 mg PO DAILY [facility]; Protocol Stop: 10/13/18 08:59 Last Admin: 08/15/18 09:50 Dose: 2.5 mg Atorvastatin Calcium (Lipitor) 40 mg PO DAILY [facility]; Protocol Stop: 10/10/18 08:59 Last Admin: 08/15/18 09:54 Dose: 40 mg Bisacodyl (Dulcolax 10 Mg Supp) 10 mg RC DAILY PRN PRN Reason: Constipation Stop: 10/09/18 22:35 Bupropion HCl (Wellbutrin Sr) 150 mg PO DAILY [facility]; Protocol Stop: 10/10/18 08:59 Last Admin: 08/15/18 09:53 Dose: 150 mg Carvedilol (Coreg) 3.125 mg PO Q12HR [facility] Stop: 10/09/18 22:59 Last Admin: 08/15/18 09:53 Dose: 3.125 mg Clopidogrel Bisulfate (Plavix) 75 mg PO DAILY [facility] Stop: 10/10/18 08:59 Last Admin: 08/15/18 09:53 Dose: 75 mg Gemfibrozil (Lopid) 600 mg PO BID [facility] Stop: 10/10/18 08:59 Last Admin: 08/15/18 09:53 Dose: 600 mg Glipizide (Glucotrol) 5 mg PO DAILY [facility] Stop: 10/10/18 08:59 Last Admin: 08/15/18 09:53 Dose: 5 mg Piperacillin Sod/Tazobactam (Sod 3.375 gm/ Sodium Chloride) 50 mls @ 100 mls/ hr IV Q8HR [facility] Stop: 10/09/18 20:59 Last Admin: 08/15/18 12:23 Dose: Not Given Sodium Chloride (Nacl 0.9%) 1,000 mls @ 150 mls/hr IV .Q6H40M [facility] Stop: 10/10/18 14:59 Last Admin: 08/14/18 13:31 Dose: 150 mls/hr Insulin Aspart (Novolog Insulin Sliding Scale) 0 units SUBQ ACHS [facility]; Protocol Stop: 10/09/18 20:59 Last Admin: 08/15/18 12:52 Dose: 3 units Insulin Detemir (Levemir Insulin) 10 units SUBQ BID [facility]; Protocol Stop: 10/10/18 08:59 Last Admin: 08/15/18 10:13 Dose: 10 units Lactulose (Cephulac) 20 gm PO BID [facility] Stop: 10/10/18 08:59 Last Admin: 08/15/18 10:00 Dose: 20 gm Levothyroxine Sodium (Synthroid) 0.15 mg PO QDAC [facility] Stop: 10/12/18 07:29 Last Admin: 08/15/18 09:58 Dose: 0.15 mg Lorazepam (Ativan) 1 mg PO Q4HR PRN; Protocol PRN Reason: Agitation Stop: 10/11/18 11:29 Last Admin: 08/13/18 19:51 Dose: 1 mg General: Alert, No acute distress HEENT: Atraumatic, EOMI, Mucous membr. moist/pink Neck: Supple, +2 carotid pulse wo bruit Cardiovascular: Regular rate, Normal S1, Normal S2 Lungs: Clear to auscultation Abdomen: Bowel sounds, Soft Extremities: no Edema Neurological: Sensation intact Skin: no Rash Psych/Mental Status: Mood NL Assessment/Plan - Assessment Assessment: Pre renal azotemia Hyponatremia 2/2 Na loss Acute decomp of Psych Ess Htn T2DM Dyslipidemia Hypothyroid Depression Bipolar Disorder - Plan Plan: Lab - Result Diagrams 08/12/18 08:30 08/12/18 08:30 Current Medications Acetaminophen (Tylenol 650mg Supp) 650 mg RC Q4HR PRN PRN Reason: Pain (Mild) 1-3 Stop: 10/09/18 22:35 Acetaminophen/Hydrocodone Bitart ([place] 10 Mg/325 Mg) 1 tab PO [facility] Stop: 10/10/18 08:59 Last Admin: 08/12/18 09:47 Dose: 1 tab Atorvastatin Calcium (Lipitor) 40 mg PO DAILY [facility]; Protocol Stop: 10/10/18 08:59 Last Admin: 08/12/18 09:46 Dose: 40 mg Bisacodyl (Dulcolax 10 Mg Supp) 10 mg RC DAILY PRN PRN Reason: Constipation Stop: 10/09/18 22:35 Bupropion HCl (Wellbutrin Sr) 150 mg PO DAILY [facility]; Protocol Stop: 10/10/18 08:59 Last Admin: 08/12/18 09:47 Dose: 150 mg Carvedilol (Coreg) 3.125 mg PO Q12HR [facility] Stop: 10/09/18 22:59 Last Admin: 08/12/18 09:45 Dose: 3.125 mg Clopidogrel Bisulfate (Plavix) 75 mg PO DAILY [facility] Stop: 10/10/18 08:59 Last Admin: 08/12/18 09:46 Dose: 75 mg Gemfibrozil (Lopid) 600 mg PO BID [facility] Stop: 10/10/18 08:59 Last Admin: 08/12/18 09:46 Dose: 600 mg Glipizide (Glucotrol) 5 mg PO DAILY [facility] Stop: 10/10/18 08:59 Last Admin: 08/12/18 09:45 Dose: 5 mg Piperacillin Sod/Tazobactam (Sod 3.375 gm/ Sodium Chloride) 50 mls @ 100 mls/ hr IV Q8HR [facility] Stop: 10/09/18 20:59 Last Admin: 08/12/18 06:03 Dose: Not Given Sodium Chloride (Nacl 0.9%) 1,000 mls @ 150 mls/hr IV .Q6H40M [facility] Stop: 10/10/18 14:59 Last Admin: 08/11/18 17:34 Dose: 150 mls/hr Insulin Aspart (Novolog Insulin Sliding Scale) 0 units SUBQ ACHS [facility]; Protocol Stop: 10/09/18 20:59 Last Admin: 08/12/18 07:22 Dose: 3 units Insulin Aspart (Novolog) 4 units SUBQ TIDWM [facility]; Protocol Stop: 10/10/18 07:59 Last Admin: 08/12/18 10:44 Dose: Not Given Insulin Detemir (Levemir Insulin) 10 units SUBQ BID [facility]; Protocol Stop: 10/10/18 08:59 Lactulose (Cephulac) 20 gm PO BID [facility] Stop: 10/10/18 08:59 Last Admin: 08/12/18 10:07 Dose: Not Given Levothyroxine Sodium (Synthroid) 0.15 mg PO QDAC [facility] Stop: 10/12/18 07:29 Lorazepam (Ativan) 1 mg PO Q4HR PRN; Protocol PRN Reason: Agitation Stop: 10/11/18 11:29 Lab - Result Diagrams 08/12/18 08:30 08/12/18 08:30 Na remain stable @ 133 control BS continue Zosyn possible transfer to [facility] Nutritional Asmnt/Malnutr-PDOC - Dietary Evaluation Malnutrition Findings (Please click <Entered> for more info): Nutritional Asmnt/Malnutrition Start: 08/11/18 13: 15 Text: Status: Complete Freq: Protocol: Document 08/11/18 13:15 [email or web address] (Rec: 08/11/18 13:22 [email or web address]) Nutritional Asmnt/Malnutrition Patient General Information Nutritional Screening High Risk Diagnosis psychosis Pertinent Medical Hx/Surgical Hx HTN, DM, hyperlipidemia, thyroid disorder, depression, bipolar Subjective Information Pt was seen resting in bed at time of visit. Pt stated he was hungry. Pt ate double breakfast and is always hungry per RN. Glucose 494 at admission noted. Not able to provide diabetic education d/t pt mental status. Current Diet Order/ Nutrition Support CCHO 60gm, 2g NA Pertinent Medications lipitor, glucotrol, novolog, levemir, piperacillin, lactulose, synthroid, NaCl 0.9 % Pertinent Labs 08/11 Na 134, BUN 35, glucose 184, Ca 8.5, POC 186-492 08/10 glucose 494, POC 419-492 Nutritional Hx/Data Height 1.8 m Height (Calculated Centimeters) 180.3 Current Weight (lbs) 81.647 kg Weight (Calculated Kilograms) 81.6 Weight (Calculated Grams) 37817.6 [place] Body Weight 172 Body Mass Index (BMI) 25.1 Weight Status Overweight GI Symptoms GI Symptoms None Last BM not indicated Difficult in: None Food Allergies No Skin Integrity/Comment: skin tear to right upper arm and right knee, abrasion to right first toe saul 15 Current %PO Good (75-100%) Estimated Nutritional Goals BEE in Kcals: Using Current wt Calories/Kcals/Kg 23-27 Kcals Calculated 4310-1404 Protein: Using Current wt Protein g/k.8-1 Protein Calculated 65-81 Fluid: ml 2737-8184 (1ml/kcal) Nutritional Problem 1. Problem Problem altered nutrition related labs Etiology hyperglycemia, electrolyte/ fluid imbalance Signs/Symptoms: Na 134, BUN 35, glucose 184, Ca 8.5, POC 186-492 Malnutrition Alert Is there a minimum of two criteria No selected? Query Text:Check all the applicable criteria. A minimum of two criteria are recommended for diagnosis of either severe or non-severe malnutrition. Malnutrition Related to Morbid Obesity Malnutrition related to morbid obesity No Intervention/Recommendation Comments 1. Continue with CCHO 60gm, 2g NA diet as ordered. MD to adjust insulin for optinal glycemic control. 2. MD to monitor glucose, fluid, and electrolytes 2. Monitor PO intake, wt, labs and skin integrity 3. F/U as moderate risk in 3-5 days Expected Outcomes/Goals Expected Outcomes/Goals Goal: PO intake to meet at least 75% of nutritional needs and improved labs. Reviewed by Vicky Trimble RD
== END 2018-08-15 16:11 | DRG 177 ==
LOC: ER 12:43 → UNDOADMIN 14:38 → TELE 14:38 → GERO 14:38 → TELE 17:20 → MSI 08-14 06:06
PROVIDERS: ADMIT Internal Medicine; ATTEND Internal Medicine
DX: J69.0 Pneumonitis due to inhalation of food and vomit (principal); G93.41 Metabolic encephalopathy; E11.00 Type 2 diabetes mellitus with hyperosmolarity without nonketotic hyperglycemic-hyperosmolar coma (NKHHC); N17.0 Acute kidney failure with tubular necrosis; E87.1 Hypo-osmolality and hyponatremia; F33.9 Major depressive disorder, recurrent, unspecified; F23 Brief psychotic disorder; E11.65 Type 2 diabetes mellitus with hyperglycemia; E03.9 Hypothyroidism, unspecified; E78.5 Hyperlipidemia, unspecified; F17.210 Nicotine dependence, cigarettes, uncomplicated; D50.9 Iron deficiency anemia, unspecified; E11.22 Type 2 diabetes mellitus with diabetic chronic kidney disease; N18.9 Chronic kidney disease, unspecified; I12.9 Hypertensive chronic kidney disease with stage 1 through stage 4 chronic kidney disease, or unspecified chronic kidney disease; E83.42 Hypomagnesemia; Z83.3 Family history of diabetes mellitus; Z82.49 Family history of ischemic heart disease and other diseases of the circulatory system
CPT/HCPCS: 36415-UA; 71045-TC; 80048-TC; 80053-TC; 80061-TC; 80307; 80320-TC; 80329-TC; 81001-TC; 82010-TC; 82043-90; 82150-TC; 82948-90; 83036-90; 83690-TC; 83735-TC; 83930-90; 84100-TC; 84300-TC; 84436-TC; 84439-90; 84443-TC; 84479-90; 84484-TC; 84550-TC; 85025-TC; 86592-TC; 87070-90; 87086-90; 93005; J1200; J1630; J1815; J2060; J2543; J3475; J7030; J7040; Z7610

== ENCOUNTER 2018-08-15 16:50 | Inpatient (IN) | payer MEDICARE, MEDICAID ==
[2018-08-15 17:20] VITALS: BP 164/89
[2018-08-15] MEDS ORDERED: Maalox 30 mL Cup PO PRN (17:27)
[2018-08-15] MEDS ORDERED: Magnesium Hydroxide (MOM) 30 mL UDC PO PRN (17:27)
--- NOTE | 2018-08-15 22:16 | Progress Notes ---
DATE: 08/15/2018 Case was discussed with staff of the patient, reviewed records. The patient now tends to be confused, continues to have poor insight, continues to be unable to make safe plan for self-care or participate in a meaningful conversation, internally preoccupied, at times hallucinating. He is compliant with the medication with no side effects. The patient is unpredictable and impulsive. I initiated Abilify on him yesterday with no side effects, no sedation or nausea, no extrapyramidal symptoms and the patient will go to [facility] when medically cleared. Thank you very much for allowing me to participate in the care of this most interesting gentleman. JOB# [id number]
[2018-08-16] MEDS: Levothyroxine 0.075 Mg Tab PO SCH (06:45)
[2018-08-16] MEDS: INSULIN ASPART SLIDING SCALE 100 UNITS/ML UNIT SUBQ SCH ×4 (07:16→21:15)
[2018-08-16] MEDS: Insulin Detemir 100 units/mL 10mL Vial SUBQ SCH ×2 (09:00→16:58)
[2018-08-16] MEDS: Multivitamin Tab PO SCH (09:21)
[2018-08-16] MEDS: Lactulose 10 Gm/15 mL 30mL UDC PO SCH ×2 (09:21→16:18)
--- NOTE | 2018-08-16 13:02 | History & Physical ---
ADMIT DATE: 08/15/2018 IDENTIFYING INFORMATION: The patient is a 57-year-old male. CHIEF COMPLAINT: "I do not know why I am here." HISTORY OF PRESENT ILLNESS: The patient is a poor historian, transferred from telemetry. He was recently referred here for admission to [facility] because of aggressive behavior. However, he ended in a telemetry because of hypoglycemia that was severe, hyponatremia, uncontrolled diabetes, leukocytosis and anemia. He was started on antibiotic and fluids. The patient was a poor historian. He was delusional over there. He says when he was medically transferred here, he also has been depressed. He reports sleeps well and eats well. He denies prior psychiatric treatment; however, he is a poor historian. He denies any current intent to harm himself or anybody; however, he is unable to tell me his age, he believes he was 54 years of age. He is not sure why I was talking to him. He was being referred here because of agitation. PAST PSYCHIATRIC HISTORY: The patient denies any prior psychiatric treatment; however, he is a poor historian. MEDICAL HISTORY: As per Dr. Zambrano. ALLERGIES: He has no known drug allergy. MEDICATIONS: He is diabetic. FAMILY AND SOCIAL HISTORY: The patient reported he was 10 years ago. He said he has been for 1 year and 2 children, age 35 and 19, who are raised by the mother, but I am not sure if this is reliable information. He said he has college degree and still work as an office electrician. MENTAL STATUS EXAMINATION: The patient was appropriately dressed, not well groomed. He mumbles to himself. He was alert. He believed that this is 2012 and then he said this is 1919. He later was able to say this is 2019. He ____. He believes he is here because he can move his legs. He denies any intent to harm himself or anybody; however, he feels agitated, unpredictable. He was actually ____ because he was in a motel, unable to pay and police had to vacate him. His long-term memory is poor, cannot remember his age or date of . He was able to remember current President being Karl, however, believes that Li was before him; later, he said is Sonny. Unable to tell me why he is here or where he was living. His short term memory is poor. Does not realize the events of this admission. Insight about his illness is poor. Does not realize he has a problem. Judgement is poor with his behavior. Major depression, recurrent with no psychosis; rule out bipolar disorder, also dementia. PLAN: The patient will be continued with medication. We will do group therapy, milieu therapy, and individual therapy. He is on Wellbutrin 150 mg daily. He is on glipizide, carvedilol, Plavix, hydrocodone for pain, insulin, lactulose, levothyroxine, and multivitamin. We will do group therapy, milieu therapy, and individual therapy. I will be initiating him on Aricept as well. ESTIMATED LENGTH OF STAY: 3-7 days. DISCHARGE CRITERIA: Decreasing confusion, decreasing depression more than appropriate safe place to go through and after discharge, outpatient treatment. The patient is supposed to be going to [place] as there is the one who referred him here. JOB# [id number]
[2018-08-16] MEDS: Hydrocodone/APAP 10 mg/325 mg Tab PO PRN ×2 (14:25→21:09)
--- NOTE | 2018-08-16 14:38 | History & Physical ---
ADMIT DATE: 08/16/2018 CHIEF COMPLAINT: Medical evaluation present. The patient is admitted to [facility]. HISTORY OF PRESENT ILLNESS: This is a 57-year-old male who is a direct admission, was brought here due to grave disability. PAST MEDICAL HISTORY: Psychosis, bipolar, depression, anemia, hypothyroidism, type 2 diabetes, hyperglycemia, hypertension, and anxiety. SURGICAL HISTORY: Unknown. SOCIAL HISTORY: Unable to obtain. REVIEW OF SYSTEMS: Unable to obtain. The patient refuses to answer questions. PHYSICAL EXAMINATION: GENERAL: Well developed, well nourished, no apparent distress. VITAL SIGNS: Temperature 97.9, heart rate 75, blood pressure 131/76, respirations 20, and O2 97%. HEENT: Head, normocephalic, atraumatic. NECK: Supple. No mass. LUNGS: Clear bilaterally. HEART: Regular rate and rhythm. ABDOMEN: Soft, nontender ____ LABORATORY DATA: Glucose 234. ASSESSMENT: Psychosis, bipolar, depression, anemia, hypothyroidism, type 2 diabetes, hypertension, and anxiety. PLAN: Fall precautions were initiated. Monitor the patient's glucose level. Monitor for any signs or symptoms of hypo or hyperglycemia. Fall precautions. Continue current plan of care. JOB# [id number]
[2018-08-17] MEDS: Levothyroxine 0.075 Mg Tab PO SCH (06:34)
[2018-08-17] MEDS: INSULIN ASPART SLIDING SCALE 100 UNITS/ML UNIT SUBQ SCH ×4 (06:35→20:31)
[2018-08-17] MEDS: Lactulose 10 Gm/15 mL 30mL UDC PO SCH ×2 (08:49→16:07)
[2018-08-17] MEDS: Multivitamin Tab PO SCH (08:50)
[2018-08-17] MEDS: Insulin Detemir 100 units/mL 10mL Vial SUBQ SCH ×2 (08:53→16:36)
[2018-08-17] MEDS: Hydrocodone/APAP 10 mg/325 mg Tab PO PRN (11:26)
--- NOTE | 2018-08-17 14:17 | Internal Medicine Prog Note ---
Internal Medicine Subjective - Subjective Patient seen and examined:: chart reviewed Patient is:: awake, verbal Internal Medicine Objective - Results Recent Labs: Laboratory Last Values POC Glucose 177 MG/DL (70 - 105) H 08/16/18 19:51 - Physical Exam Vitals and I&O: Vital Signs Temp 0 F 08/17/18 06:36 Pulse 80 08/16/18 20:37 Resp 20 08/16/18 20:37 BP 125/73 08/16/18 20:37 Pulse Ox 95 08/16/18 20:37 Intake & Output 08/16/18 08/17/18 08/17/18 18:59 06:59 18:59 Intake Total 900 240 Balance 900 240 Intake: Oral 900 240 Other: # Voids 3 3 # Bowel Movements 1 0 Active Medications: Current Medications Acetaminophen (Tylenol) 650 mg PO Q4HR PRN PRN Reason: Mild Pain / Temp above 100 Stop: 10/14/18 17:26 Last Admin: 08/15/18 21:27 Dose: 650 mg Acetaminophen/Hydrocodone Bitart ([place] 10 Mg/325 Mg) 1 tab PO Q6H PRN PRN Reason: Pain (Severe) Stop: 10/15/18 01:29 Last Admin: 08/17/18 11:26 Dose: 1 tab Al Hydrox/Mg Hydrox/Simethicone (Maalox) 30 ml PO Q4HR PRN PRN Reason: GI DISTRESS Stop: 10/14/18 17:26 Aripiprazole (Abilify) 5 mg PO DAILY [facility]; Protocol Stop: 10/16/18 08:59 Last Admin: 08/17/18 08:51 Dose: 5 mg Atorvastatin Calcium (Lipitor) 40 mg PO DAILY [facility]; Protocol Stop: 10/15/18 08:59 Last Admin: 08/17/18 08:50 Dose: 40 mg Bisacodyl (Dulcolax 10 Mg Supp) 10 mg RC DAILY PRN PRN Reason: Constipation Stop: 10/15/18 01:37 Bupropion HCl (Wellbutrin Sr) 150 mg PO DAILY [facility]; Protocol Stop: 10/15/18 08:59 Last Admin: 08/17/18 08:51 Dose: 150 mg Carvedilol (Coreg) 3.125 mg PO BID [facility] Stop: 10/15/18 08:59 Last Admin: 08/17/18 08:51 Dose: Not Given Clopidogrel Bisulfate (Plavix) 75 mg PO DAILY [facility] Stop: 10/15/18 08:59 Last Admin: 08/17/18 08:50 Dose: 75 mg Donepezil HCl (Aricept) 5 mg PO HS [facility] Stop: 10/15/18 20:59 Last Admin: 08/16/18 21:09 Dose: 5 mg Gemfibrozil (Lopid) 600 mg PO BIDAC [facility] Stop: 10/15/18 07:29 Last Admin: 08/17/18 06:34 Dose: 600 mg Glipizide (Glucotrol) 5 mg PO DAILY [facility] Stop: 10/15/18 08:59 Last Admin: 08/17/18 08:50 Dose: 5 mg Insulin Aspart (Novolog Insulin Sliding Scale) 0 units SUBQ ACHS [facility]; Protocol Stop: 10/15/18 07:29 Last Admin: 08/17/18 11:49 Dose: Not Given Insulin Detemir (Levemir Insulin) 10 units SUBQ BID [facility]; Protocol Stop: 10/15/18 08:59 Last Admin: 08/17/18 08:53 Dose: 10 unit Lactulose (Cephulac) 20 gm PO BID [facility] Stop: 10/15/18 08:59 Last Admin: 08/17/18 08:49 Dose: 20 gm Levothyroxine Sodium (Synthroid) 0.15 mg PO QDAC [facility] Stop: 10/15/18 07:29 Last Admin: 08/17/18 06:34 Dose: 0.15 mg Lorazepam (Ativan) 1 mg PO Q4HR PRN; Protocol PRN Reason: Agitation Stop: 10/14/18 17:50 Last Admin: 08/17/18 14:06 Dose: 1 mg Magnesium Hydroxide (Milk Of Magnesia) 30 ml PO HS PRN PRN Reason: Constipation Multivitamins/Vitamin C (Theragran) 1 tab PO DAILY [facility] Stop: 10/15/18 08:59 Last Admin: 08/17/18 08:50 Dose: 1 tab Zolpidem Tartrate (Ambien) 5 mg PO HS PRN PRN Reason: Insomnia Stop: 10/14/18 17:26 Last Admin: 08/16/18 21:09 Dose: 5 mg General: alert HEENT: PERRLA, EOMI Neck: Supple Lungs: CTAB Cardiovascular: RRR, Normal S1, Normal S2 Abdomen: soft, non-tender Extremities: clear Neurological: alert Internal Medicine Assmt/Plan - Assessment Assessment: psychosis bipolar depression anemia hypothyroidism type 2 diabetes HTN anxiety - Plan Plan: as per psych will monitor as per order sheet
--- NOTE | 2018-08-17 21:21 | Progress Notes ---
DATE: 08/17/2018 SUBJECTIVE: Case was discussed with staff of the patient, reviewed records. The patient continues to have poor insight, unpredictable, impulsive, needing redirection, unable to participate in meaningful conversation or make safe plan for self-care, unreliable historian basically. The patient has no idea why is here. He was apparently in a motel, where he had to be evacuated by the police because he was in paying and he was staying there with no insight into his behavior. So far, he has been compliant with the medication with no side effects, no sedation, no nausea, and no extrapyramidal symptoms. I will be increasing his Abilify to 5 mg a day. We will continue to work with the patient in group therapy, milieu therapy, and adjust the medications as needed. JOB# [id number]
[2018-08-18] MEDS: Levothyroxine 0.075 Mg Tab PO SCH (06:41)
[2018-08-18] MEDS: INSULIN ASPART SLIDING SCALE 100 UNITS/ML UNIT SUBQ SCH ×2 (06:42→11:36)
[2018-08-18] MEDS: Lactulose 10 Gm/15 mL 30mL UDC PO SCH (08:49)
[2018-08-18] MEDS: Multivitamin Tab PO SCH (08:50)
[2018-08-18] MEDS: Hydrocodone/APAP 10 mg/325 mg Tab PO PRN (08:50)
[2018-08-18] MEDS: Insulin Detemir 100 units/mL 10mL Vial SUBQ SCH (09:30)
--- NOTE | 2018-08-18 12:43 | Discharge Summary ---
DATE OF DISCHARGE: 08/18/2018 IDENTIFYING INFORMATION: The patient is a 57-year-old male. CHIEF COMPLAINT: "I do not know why I am here." HISTORY OF PRESENT ILLNESS: The patient was a poor historian, transferred from [facility]. He was recently referred here for admission to [facility] because of aggressive behavior. Also, later found out the patient was on a hold because apparently he was in a hotel and he was not paying and he was vacate by the police with no place to go to. He was a poor historian. The patient was delusional. The patient was at the beginning, he had uncontrolled diabetes, hyponatremia, and hyperglycemia. He was medically cleared and transferred here. He is also anemic. He has been depressed. He sleeps well, eats well. Denies prior psychiatric treatment; however, he was a poor historian. Denies prior intent to harm himself or anybody. However, unable tell me his age, he believes that he was 54 years of age. He was not sure why I was talking to him. PAST MEDICAL HISTORY: As per Dr. Zambrano. He is diabetic. ALLERGIES: He has no known drug allergies. COURSE IN THE HOSPITAL: The patient was started on Abilify, increased the dose to 5 mg. At some point, he was having visual hallucination, not sure because of his medical condition. The patient was continued with atorvastatin and bisacodyl. He was already on Wellbutrin that was continued at 150 mg daily. He was on Coreg and Plavix. Aricept was added 5 mg at bedtime, gemfibrozil, and glipizide. He was on hydrocodone and insulin, lactulose, levothyroxine, magnesium, and multivitamin. The patient continued to stay to himself, not say much. However, he had a ____ court hearing and as he has a placement at [facility], the hand plug shaper let him go. So, the patient was discharged by the hand plug shaper. FINAL DIAGNOSES: Major depression, recurrent with no psychosis; rule out bipolar disorder, also dementia. MEDICAL DIAGNOSES: As per Dr. Eagle. The patient will be going to [place]. The patient will follow up with the psychiatrist, primary care physician, and a therapist. EXPECTED OUTCOME: Stable, if the patient complies with the above. JOB# [id number]
--- NOTE | 2018-08-18 12:57 | Progress Notes ---
DATE: 08/18/2018 SUBJECTIVE: Case was discussed with staff of the patient, reviewed records. The patient continues to be confused and history on safe plan for self-care. I increased his Abilify to 5 mg daily. Continues to have episodes of agitation. General, he is starting to show some progress. Sleeping better, eating better. No side effects with the medication, no sedation, no nausea, no extrapyramidal symptoms. His lab work showed high blood sugar. No other lab work is available. We will continue outpatient group therapy, milieu therapy, and adjust medications as needed. JOB# [id number]
--- NOTE | 2018-08-18 15:34 | Internal Medicine Prog Note ---
Internal Medicine Subjective - Subjective Patient seen and examined:: chart reviewed Patient is:: awake, verbal, other (doing better ,goos appetite ) Per staff patient has:: no adverse event Internal Medicine Objective - Results Recent Labs: Laboratory Last Values POC Glucose 204 MG/DL (70 - 105) H 08/18/18 11:27 - Physical Exam Vitals and I&O: Vital Signs Temp 97.2 F 08/17/18 14:00 Pulse 84 08/18/18 08:50 Resp 20 08/17/18 14:00 BP 152/82 08/18/18 08:50 Pulse Ox 96 08/17/18 14:00 Intake & Output 08/17/18 08/18/18 08/18/18 18:59 06:59 18:59 Intake Total 2400 120 Balance 2400 120 Intake: Oral 2400 120 Other: # Voids 4 3 # Bowel Movements 1 Active Medications: Current Medications Acetaminophen (Tylenol) 650 mg PO Q4HR PRN PRN Reason: Mild Pain / Temp above 100 Stop: 10/14/18 17:26 Last Admin: 08/15/18 21:27 Dose: 650 mg Acetaminophen/Hydrocodone Bitart ([place] 10 Mg/325 Mg) 1 tab PO Q6H PRN PRN Reason: Pain (Severe) Stop: 10/15/18 01:29 Last Admin: 08/18/18 08:50 Dose: 1 tab Al Hydrox/Mg Hydrox/Simethicone (Maalox) 30 ml PO Q4HR PRN PRN Reason: GI DISTRESS Stop: 10/14/18 17:26 Aripiprazole (Abilify) 5 mg PO DAILY [facility]; Protocol Stop: 10/16/18 08:59 Last Admin: 08/18/18 08:50 Dose: 5 mg Atorvastatin Calcium (Lipitor) 40 mg PO DAILY [facility]; Protocol Stop: 10/15/18 08:59 Last Admin: 08/18/18 08:49 Dose: 40 mg Bisacodyl (Dulcolax 10 Mg Supp) 10 mg RC DAILY PRN PRN Reason: Constipation Stop: 10/15/18 01:37 Bupropion HCl (Wellbutrin Sr) 150 mg PO DAILY [facility]; Protocol Stop: 10/15/18 08:59 Last Admin: 08/18/18 08:50 Dose: 150 mg Carvedilol (Coreg) 3.125 mg PO BID [facility] Stop: 10/15/18 08:59 Last Admin: 08/18/18 08:50 Dose: 3.125 mg Clopidogrel Bisulfate (Plavix) 75 mg PO DAILY [facility] Stop: 10/15/18 08:59 Last Admin: 08/18/18 09:47 Dose: 75 mg Donepezil HCl (Aricept) 5 mg PO HS [facility] Stop: 10/15/18 20:59 Last Admin: 08/17/18 20:28 Dose: 5 mg Gemfibrozil (Lopid) 600 mg PO BIDAC [facility] Stop: 10/15/18 07:29 Last Admin: 08/18/18 06:41 Dose: 600 mg Glipizide (Glucotrol) 5 mg PO DAILY [facility] Stop: 10/15/18 08:59 Last Admin: 08/18/18 08:49 Dose: 5 mg Insulin Aspart (Novolog Insulin Sliding Scale) 0 units SUBQ ACHS [facility]; Protocol Stop: 10/15/18 07:29 Last Admin: 08/18/18 11:36 Dose: 4 units Insulin Detemir (Levemir Insulin) 10 units SUBQ BID [facility]; Protocol Stop: 10/15/18 08:59 Last Admin: 08/18/18 09:30 Dose: Not Given Lactulose (Cephulac) 20 gm PO BID [facility] Stop: 10/15/18 08:59 Last Admin: 08/18/18 08:49 Dose: 20 gm Levothyroxine Sodium (Synthroid) 0.15 mg PO QDAC [facility] Stop: 10/15/18 07:29 Last Admin: 08/18/18 06:41 Dose: 0.15 mg Lorazepam (Ativan) 1 mg PO Q4HR PRN; Protocol PRN Reason: Agitation Stop: 10/14/18 17:50 Last Admin: 08/17/18 14:06 Dose: 1 mg Magnesium Hydroxide (Milk Of Magnesia) 30 ml PO HS PRN PRN Reason: Constipation Multivitamins/Vitamin C (Theragran) 1 tab PO DAILY [facility] Stop: 10/15/18 08:59 Last Admin: 08/18/18 08:50 Dose: 1 tab Zolpidem Tartrate (Ambien) 5 mg PO HS PRN PRN Reason: Insomnia Stop: 10/14/18 17:26 Last Admin: 08/17/18 20:28 Dose: 5 mg General: alert, other (still confused ) HEENT: PERRLA, EOMI Neck: Supple Lungs: CTAB Cardiovascular: RRR, Normal S1, Normal S2 Abdomen: soft, non-tender Extremities: clear Neurological: alert Internal Medicine Assmt/Plan - Assessment Assessment: psychosis bipolar depression anemia hypothyroidism type 2 diabetes HTN anxiety - Plan Plan: as per psych dc planning
== END 2018-08-18 15:15 | DRG 885 ==
LOC: GERO 16:50
PROVIDERS: ADMIT Psychiatry & Neurology Psychiatry; ATTEND Psychiatry & Neurology Psychiatry
DX: F31.9 Bipolar disorder, unspecified (principal); D64.9 Anemia, unspecified; D72.829 Elevated white blood cell count, unspecified; E03.9 Hypothyroidism, unspecified; F41.9 Anxiety disorder, unspecified; F29 Unspecified psychosis not due to a substance or known physiological condition
CPT/HCPCS: 82948-90; 90899; J1815; Z7610